=== PATIENT | male | born 1970 | race Caucasian/White ===

== ENCOUNTER 2018-03-22 07:30 | Day surgery (SDC) | payer OTHER ==
[2018-03-16 14:21] LABS: BASOPHILS # (AUTO) 0.1 X10'3 (0-0.2); BASOPHILS % (AUTO) 1.1 % (0-1); EOSINOPHILS # (AUTO) 0.1 X10'3 (0-0.9); LYMPHOCYTES # (AUTO) 1.7 X10'3 (1.1-4.8); LYMPHOCYTES % (AUTO) 21.4 % (21-51); MEAN CORPUSCULAR HEMOGLOBIN 27.7 PG (27.0-31.0); MEAN CORPUSCULAR HGB CONC 32.2 % (33.0-36.5); MEAN PLATELET VOLUME 8.2 FL (7.4-10.4); MONOCYTES # (AUTO) 0.6 X10'3 (0-0.9); MONOCYTES % (AUTO) 7.9 % (2-12); NEUTROPHILS # (AUTO) 5.3 X10'3 (1.8-7.7); NEUTROPHILS % (AUTO) 68.6 % (42-75); PRE OP HEMATOCRIT 43.8 % (42.0-52.0); PRE OP HEMOGLOBIN 14.1 g/dL (14.0-17.9); PRE OP PLATELET COUNT 152 X10'3 (140-440); RED BLOOD COUNT 5.09 X10'6 (4.70-6.10)
[2018-03-16 14:33] LABS: CLARITY,URINE CLEAR (Clear); COLOR,URINE YELLOW (Yellow); GLUCOSE, URINE NEGATIVE (Neg); KETONES,URINE NEGATIVE (Neg); LEUKOCYTE ESTERASE ,URINE NEGATIVE (Neg); NITRITES, URINE NEGATIVE (Neg); OCCULT BLOOD,URINE NEGATIVE (Neg); PH,URINE 5.5 (4.8-8.0); PROTEIN,URINE NEGATIVE (Neg); UROBILINOGEN,URINE 0.2 E.U/dL (0.2-1.0)
[2018-03-16 14:35] LABS: PRE OP PROTIME 10.4 SECONDS (9.0-12.0)
[2018-03-16 14:37] LABS: ALBUMIN 3.6 G/DL (3.4-5.0); ALBUMIN/GLOBULIN RATIO 0.9 (1.1-1.5); ALKALINE PHOSPHATASE 118 IU/L (46-116); BLOOD UREA NITROGEN 14 MG/DL (7-18); BUN/CREATININE RATIO 13.2 (5.4-32.0); CALCIUM 9.4 MG/DL (8.5-10.1); CHLORIDE 102 MMOL/L (99-107); CREATININE 1.06 MG/DL (0.60-1.10); PRE OP ANION GAP 9 (8-16); PRE OP AST 62 U/L (10-37); PRE OP BILIRUB, TOTAL 0.8 MG/DL (0.0-1.0); PRE OP GLUCOSE 108 MG/DL (70-104); PRE OP POTASSIUM 3.9 MMOL/L (3.4-5.1); PRE OP SODIUM 140 MMOL/L (135-145); TOTAL CARBON DIOXIDE 29.5 MMOL/L (24-32); TOTAL PROTEIN 7.5 G/DL (6.4-8.2); eGFR 75 ML/MIN
[2018-03-16 14:41] LABS: PRE OP ALT 93 U/L (30-65)
[2018-03-16 14:43] LABS: UA COLLECTION TYPE CLN CATCH MIDSTREAM
[~2018-03-22] VITALS: Ht 177.8 cm; Wt 139.7 kg
[2018-03-22] VITALS (10 sets, daily range): BP systolic 114–148; BP diastolic 62–81
[~2018-03-22 07:30] MED LIST: NO HOME MEDS; ceFAZolin inj. 3,000 MG in normal saline 100ml IV soln 100 ML IV ONE; famotidine 20mg tablet PO ONE; ringers solution, lacted 1,000 ML IV SCH
[2018-03-22] MEDS ORDERED: ondansetron/PF 4mg/2ml inj IV PRN ×2 (08:30→10:30)
[2018-03-22] MEDS ORDERED: fentaNYL/PF 50MCG/1 ML 2ML syringe IV PRN ×4 (08:30→10:30)
[2018-03-22] MEDS ORDERED: hydrALAZINE 20mg/ml inj. IV PRN ×2 (08:30→10:30)
[2018-03-22] MEDS ORDERED: morphine 4 MG/ML inj SYRINge IV PRN ×4 (08:30→10:30)
[2018-03-22] MEDS ORDERED: labetalol 20mg/4ml (5mg/ml) syringe IV PRN ×2 (08:30→10:30)
[2018-03-22] MEDS ORDERED: ringers solution, lacted 1,000 ML IV SCH ×2 (08:30→10:28)
[2018-03-22] MEDS ORDERED: ROPIVAcaine 0.5% (5mg/ml) 30ml vial ONE (09:34)
[2018-03-22] MEDS ORDERED: methylene blue (5mg/ml) 50mg/10ml ampul IV ONE (09:51)
[2018-03-22] MEDS ORDERED: fentaNYL/PF 50MCG/1 ML 2ML syringe ONE (09:52)
[2018-03-22] MEDS ORDERED: MIDAZolam 5mg/5ml vial ONE (09:52)
== END 2018-03-22 12:30 | disposition home or self-care (01) ==
LOC: PAS 07:30
PROVIDERS: ATTEND Surgery
DX: K60.3 Anal fistula (principal); K64.4 Residual hemorrhoidal skin tags; Z79.899 Other long term (current) drug therapy; Z98.890 Other specified postprocedural states
CPT/HCPCS: 36415; 45330; 46258; 80053; 81003; 85025; 85610; 85730; 93005; A6266; A6449; J0690; J2250; J3010; A7000; J2795; J7030; J7120

== ENCOUNTER 2018-03-28 10:20 | Day surgery (SDC) | payer OTHER ==
[~2018-03-28 10:20] MED LIST changes: -ceFAZolin inj. 3,000 MG in normal saline 100ml IV soln 100 ML IV ONE; -famotidine 20mg tablet PO ONE; -ringers solution, lacted 1,000 ML IV SCH
[2018-03-28] MEDS ORDERED: HYDR-4383 PO (12:17)
[2018-03-28] MEDS ORDERED: IBUP-1984 PO (16:57)
== END 2018-03-28 12:46 | disposition home or self-care (01) ==
LOC: WOUND CARE 10:20
PROVIDERS: ATTEND Surgery
DX: T81.89XA Other complications of procedures, not elsewhere classified, initial encounter (principal); L98.492 Non-pressure chronic ulcer of skin of other sites with fat layer exposed; Z79.899 Other long term (current) drug therapy; Z98.890 Other specified postprocedural states; Y83.8 Other surgical procedures as the cause of abnormal reaction of the patient, or of later complication, without mention of misadventure at the time of the procedure
CPT/HCPCS: 17250; 97597; A6021; A6243

== ENCOUNTER 2018-04-04 09:36 | Day surgery (SDC) | payer OTHER ==
[~2018-04-04 09:36] MED LIST changes: +HYDR-4383 PO; +IBUP-1984 PO
== END 2018-04-04 12:19 | disposition home or self-care (01) ==
LOC: WOUND CARE 09:36
PROVIDERS: ATTEND Surgery
DX: T81.89XD Other complications of procedures, not elsewhere classified, subsequent encounter (principal); L98.492 Non-pressure chronic ulcer of skin of other sites with fat layer exposed; Z79.899 Other long term (current) drug therapy; Z98.890 Other specified postprocedural states; Y83.8 Other surgical procedures as the cause of abnormal reaction of the patient, or of later complication, without mention of misadventure at the time of the procedure
CPT/HCPCS: 17250; 97597; A6021

== ENCOUNTER 2018-04-08 09:36 | Day surgery (SDC) | payer OTHER | END 2018-04-08 10:47 | disposition home or self-care (01) | LOC: WOUND CARE 09:36 | PROVIDERS: ATTEND Surgery | DX: T81.89XD Other complications of procedures, not elsewhere classified, subsequent encounter (principal); L98.492 Non-pressure chronic ulcer of skin of other sites with fat layer exposed; Z79.899 Other long term (current) drug therapy; Z98.890 Other specified postprocedural states; Y83.8 Other surgical procedures as the cause of abnormal reaction of the patient, or of later complication, without mention of misadventure at the time of the procedure | CPT/HCPCS: 17250; A6021 ==

== ENCOUNTER 2018-04-18 09:31 | Day surgery (SDC) | payer OTHER | END 2018-04-18 11:30 | disposition home or self-care (01) | LOC: WOUND CARE 09:31 | PROVIDERS: ATTEND Surgery | DX: T81.89XD Other complications of procedures, not elsewhere classified, subsequent encounter (principal); L98.492 Non-pressure chronic ulcer of skin of other sites with fat layer exposed; Z79.899 Other long term (current) drug therapy; Z98.890 Other specified postprocedural states; Y83.8 Other surgical procedures as the cause of abnormal reaction of the patient, or of later complication, without mention of misadventure at the time of the procedure | CPT/HCPCS: 17250 ==

== ENCOUNTER 2018-04-22 09:33 | Day surgery (SDC) | payer OTHER ==
[~2018-04-22 09:33] MED LIST changes: -NO HOME MEDS
== END 2018-04-22 10:10 | disposition home or self-care (01) ==
LOC: WOUND CARE 09:33
PROVIDERS: ATTEND Surgery
DX: T81.89XD Other complications of procedures, not elsewhere classified, subsequent encounter (principal); L98.492 Non-pressure chronic ulcer of skin of other sites with fat layer exposed; Z79.899 Other long term (current) drug therapy; Z98.890 Other specified postprocedural states; Y83.8 Other surgical procedures as the cause of abnormal reaction of the patient, or of later complication, without mention of misadventure at the time of the procedure
CPT/HCPCS: 17250; 97597

== ENCOUNTER 2018-05-13 09:35 | Outpatient (CLI) | payer OTHER ==
--- NOTE | 2018-05-13 11:30 | NUR ---
Patient ambulated independently from [facility] and was admitted to outpatient wound care for physician visit with Noe Sandoval MD. Dressing removed, wound cleansed. Patient assessed for changes in conditions, medications and medical history. 1120 - Dr. Sandoval at bedside accompanied by RN. Wound assessed by and is declared healed. Plan of care discussed with patient. No dressings ordered or placed. Patient is discharged from the wound clinic to follow up on an as needed basis. Patient instructed on the signs and symptoms of infection and to call the Wound Center if any occur or to go to the ED if we are closed: Increased pain in wound Increase in drainage from the wound Redness in the skin surrounding the wound Bleeding from the wound Temperature of 101 or greater Patient instructed that the weight of their body puts a large amount of pressure on their wounds. This pressure keeps the new tissue from growing and inhibits new blood vessels from forming. Explained that, if they continue to bear weight on a body part that has a wound, the time it takes to heal the wound increases, the wound may get worse or the wound may not heal at all. Patient verbalized understanding of all discharge instructions and plan of care and ambulated independently out to [facility] in stable condition with no sign or symptom of distress at time of discharge.
[2018-05-13] MEDS ORDERED: CIPR-230 PO (14:01)
== END 2018-05-13 11:29 | disposition home or self-care (01) ==
LOC: WOUND CARE 09:35
PROVIDERS: ATTEND Surgery
DX: T81.89XD Other complications of procedures, not elsewhere classified, subsequent encounter (principal); L98.498 Non-pressure chronic ulcer of skin of other sites with other specified severity; Z79.899 Other long term (current) drug therapy; Z98.890 Other specified postprocedural states; F10.10 Alcohol abuse, uncomplicated; Y83.8 Other surgical procedures as the cause of abnormal reaction of the patient, or of later complication, without mention of misadventure at the time of the procedure
CPT/HCPCS: G0463

== ENCOUNTER → 2020-08-16 | Day surgery (SDC) | payer OTHER ==
[2020-08-05 15:50] LABS: CLARITY,URINE CLEAR (Clear); COLOR,URINE YELLOW (Yellow); GLUCOSE, URINE NEGATIVE (Neg); KETONES,URINE NEGATIVE (Neg); LEUKOCYTE ESTERASE ,URINE TRACE (Neg); NITRITES, URINE NEGATIVE (Neg); OCCULT BLOOD,URINE NEGATIVE (Neg); PH,URINE 5.5 (4.8-8.0); PROTEIN,URINE NEGATIVE (Neg); UA COLLECTION TYPE CLN CATCH MIDSTREAM
[2020-08-05 15:53] LABS: BASOPHILS % (AUTO) 0.7 % (0-1); EOSINOPHILS # (AUTO) 0.1 X10'3 (0-0.9); EOSINOPHILS % (AUTO) 1.6 % (0-6); LYMPHOCYTES % (AUTO) 14.7 % (21-51); MEAN CORPUSCULAR HEMOGLOBIN 29.6 PG (27.0-31.0); MEAN CORPUSCULAR HGB CONC 32.2 g/dL (33.0-36.5); MEAN CORPUSCULAR VOLUME 91.8 FL (78-98); MEAN PLATELET VOLUME 8.4 FL (7.4-10.4); MONOCYTES # (AUTO) 0.7 X10'3 (0-0.9); MONOCYTES % (AUTO) 10.2 % (2-12); NEUTROPHILS # (AUTO) 4.9 X10'3 (1.8-7.7); NEUTROPHILS % (AUTO) 72.8 % (42-75); PRE OP HEMOGLOBIN 12.9 g/dL (14.0-17.9); RED BLOOD COUNT 4.36 X10'6 (4.70-6.10); RED CELL DISTRIBUTION WIDTH 15.5 % (11.5-14.5)
[2020-08-05 15:59] LABS: BACTERIA,URINE 1+ /HPF (Neg); RBC,URINE 0-2 /HPF (0-2); SQUAMOUS EPITHELIAL CELL,UR FEW /LPF (FEW); WBC,URINE 0-4 /HPF (0-4)
[2020-08-05 16:12] LABS: ALBUMIN 3.6 G/DL (3.4-5.0); ALBUMIN/GLOBULIN RATIO 0.9 (1.1-1.5); ALKALINE PHOSPHATASE 109 IU/L (46-116); BLOOD UREA NITROGEN 12 MG/DL (7-18); BUN/CREATININE RATIO 15.8 (5.4-32.0); CALCIUM 9.4 MG/DL (8.5-10.1); CHLORIDE 102 MMOL/L (99-107); CREATININE 0.76 MG/DL (0.60-1.10); PRE OP ANION GAP 9 (8-16); PRE OP AST 102 U/L (10-37); PRE OP GLUCOSE 128 MG/DL (70-104); PRE OP SODIUM 140 MMOL/L (135-145); TOTAL CARBON DIOXIDE 29.3 MMOL/L (24-32); TOTAL PROTEIN 7.4 G/DL (6.4-8.2); eGFR > 90 ML/MIN
[2020-08-05 16:16] LABS: PRE OP POTASSIUM 3.9 MMOL/L (3.4-5.1)
[2020-08-05 16:18] LABS: PRE OP ALT 111 U/L (30-65)
[2020-08-05 17:07] LABS: PRE OP PLATELET COUNT 97 X10'3 (140-440)
[~2020-08-16] VITALS: Ht 180.3 cm; Wt 149.7 kg
[~2020-08-16] MED LIST changes: +ASPI-1265 PO; +LIDOcaine 2% (20mg/ml) 5ml vial ONE; +ROPIVAcaine 0.5% (5mg/ml) 30ml vial ONE; +bacitracin 15gm ointment TP ONE; +ceFAZolin 1GM/D5W- ADD-VANTAGE 50 ML IV ONE; +cefazolin/dext.iso 2gm/100ml 100 ML IV ONE; +dexamethasone sod phosphate 4mg/ml inj. ONE; +famotidine 20mg tablet PO ONE; +fentaNYL /PF 50mcg/ml 5ml ampule ONE; +midazolam 1 mg/ML 2ml injection ONE; +propofol inj 20 ML IV ONE; +ringers solution, lacted 1,000 ML IV SCH; +rocuronium 10mg/ml inj IV ONE
[2020-08-16 12:52] VITALS: BP 135/62
== END | disposition home or self-care (01) ==
LOC: PAS 11:42
PROVIDERS: ATTEND Podiatrist Foot & Ankle Surgery
DX: S86.012A Strain of left Achilles tendon, initial encounter (principal); Z53.8 Procedure and treatment not carried out for other reasons; S86.312A Strain of muscle(s) and tendon(s) of peroneal muscle group at lower leg level, left leg, initial encounter; M77.32 Calcaneal spur, left foot; M25.472 Effusion, left ankle; M21.6X2 Other acquired deformities of left foot; M76.72 Peroneal tendinitis, left leg; M76.62 Achilles tendinitis, left leg; Z20.822 Contact with and (suspected) exposure to COVID-19; Z79.899 Other long term (current) drug therapy; Z72.89 Other problems related to lifestyle; X58.XXXA Exposure to other specified factors, initial encounter; Y93.89 Activity, other specified; Y92.89 Other specified places as the place of occurrence of the external cause; Y99.8 Other external cause status
CPT/HCPCS: 36415; 80053; 81001; 82948; 85025; 87088; 93005; J0690; J1100; J2001; J2250; J2704; J3010; U0003; J2795; J7120

== ENCOUNTER 2020-09-06 11:12 | Inpatient (IN) | payer OTHER ==
[2020-08-30 11:25] LABS: BASOPHILS # (AUTO) 0.1 X10'3 (0-0.2); BASOPHILS % (AUTO) 0.9 % (0-1); EOSINOPHILS # (AUTO) 0.2 X10'3 (0-0.9); EOSINOPHILS % (AUTO) 2.3 % (0-6); HEMATOCRIT 41.7 % (42.0-52.0); HEMOGLOBIN 13.8 g/dl (14.0-17.9); LYMPHOCYTES # (AUTO) 1.1 X10'3 (1.1-4.8); LYMPHOCYTES % (AUTO) 14.4 % (21-51); MEAN CORPUSCULAR HEMOGLOBIN 30.8 PG (27.0-31.0); MEAN CORPUSCULAR VOLUME 93.4 FL (78-98); MEAN PLATELET VOLUME 8.3 FL (7.4-10.4); MONOCYTES # (AUTO) 0.7 X10'3 (0-0.9); MONOCYTES % (AUTO) 8.7 % (2-12); NEUTROPHILS # (AUTO) 5.8 X10'3 (1.8-7.7); NEUTROPHILS % (AUTO) 73.7 % (42-75); PLATELET COUNT 164 X10'3 (140-440); RED BLOOD COUNT 4.46 X10'6 (4.70-6.10); RED CELL DISTRIBUTION WIDTH 15.1 % (11.5-14.5); WHITE BLOOD COUNT 7.9 X10'3 (4.5-11.0)
[2020-08-30 11:37] LABS: ALANINE AMINOTRANSFERASE 166 U/L (12-78); ALBUMIN 3.4 G/DL (3.4-5.0); ALBUMIN/GLOBULIN RATIO 0.9 (1.1-1.5); ALKALINE PHOSPHATASE 126 IU/L (46-116); ANION GAP 12 (8-16); ASPARTATE AMINO TRANSFERASE 175 U/L (10-37); BLOOD UREA NITROGEN 10 MG/DL (7-18); BUN/CREATININE RATIO 15.4 (5.4-32.0); CHLORIDE 102 MMOL/L (99-107); CREATININE 0.65 MG/DL (0.60-1.10); GLUCOSE 132 MG/DL (70-104); POTASSIUM 4.4 MMOL/L (3.5-5.1); SODIUM 139 MMOL/L (135-145); TOTAL CARBON DIOXIDE 25.5 MMOL/L (24-32); TOTAL PROTEIN 7.4 G/DL (6.4-8.2); eGFR > 90 ML/MIN
[2020-09-06] VITALS (24 sets, daily range): BP systolic 118–181; BP diastolic 52–97
[~2020-09-06] VITALS: Ht 180.3 cm; Wt 157.6 kg
[~2020-09-06 11:12] MED LIST changes: -ASPI-1265 PO; -LIDOcaine 2% (20mg/ml) 5ml vial ONE; -ROPIVAcaine 0.5% (5mg/ml) 30ml vial ONE; -bacitracin 15gm ointment TP ONE; -cefazolin/dext.iso 2gm/100ml 100 ML IV ONE; +cefazolin/dext.iso 2gm/100ml IV ONE; -dexamethasone sod phosphate 4mg/ml inj. ONE; -fentaNYL /PF 50mcg/ml 5ml ampule ONE; -midazolam 1 mg/ML 2ml injection ONE; -propofol inj 20 ML IV ONE; -rocuronium 10mg/ml inj IV ONE
[2020-09-06] MEDS ORDERED: ASPI-1265 PO (12:01)
[2020-09-06] MEDS ORDERED: bacitracin 15gm ointment TP ONE (12:28)
[2020-09-06] MEDS ORDERED: cloNIDine hcl/PF 100mcg/ml inj ONE (13:28)
[2020-09-06] MEDS ORDERED: midazolam 1 mg/ML 2ml injection ONE (13:33)
[2020-09-06 13:34] LABS: CLARITY,URINE CLEAR (Clear); COLOR,URINE YELLOW (Yellow); GLUCOSE, URINE NEGATIVE (Neg); KETONES,URINE NEGATIVE (Neg); LEUKOCYTE ESTERASE ,URINE NEGATIVE (Neg); NITRITES, URINE NEGATIVE (Neg); OCCULT BLOOD,URINE NEGATIVE (Neg); PROTEIN,URINE NEGATIVE (Neg); UROBILINOGEN,URINE 0.2 E.U/dL (0.2-1.0)
[2020-09-06 13:35] LABS: UA COLLECTION TYPE CLN CATCH MIDSTREAM
[2020-09-06] MEDS ORDERED: fentaNYL /PF 50mcg/ml 5ml ampule ONE (15:01)
[2020-09-06] MEDS ORDERED: rocuronium 10mg/ml inj IV ONE (15:01)
[2020-09-06] MEDS ORDERED: propofol inj 20 ML IV ONE ×2 (15:01)
[2020-09-06] MEDS ORDERED: LIDOcaine 2% (20mg/ml) 5ml vial ONE (15:01)
[2020-09-06] MEDS ORDERED: ROPIVAcaine 0.5% (5mg/ml) 30ml vial ONE ×2 (15:01)
[2020-09-06] MEDS ORDERED: dexamethasone sod phosphate 4mg/ml inj. ONE (15:01)
[2020-09-06] MEDS ORDERED: ondansetron/PF 4mg/2ml inj ONE (15:01)
[2020-09-06] MEDS ORDERED: acetaminophen 1,000mg/100ml IV 100 ML IV PRN (15:05)
[2020-09-06] MEDS ORDERED: proCHLORperazine 10 MG/2 ml inj IV PRN (15:05)
[2020-09-06] MEDS ORDERED: labetalol 20mg/4ml (5mg/ml) syringe IV PRN (15:05)
[2020-09-06] MEDS ORDERED: morphine 4 MG/ML inj SYRINge IV PRN (15:05)
[2020-09-06] MEDS ORDERED: meperidine/PF 25mg/ml syringe IV PRN ×3 (15:05)
[2020-09-06] MEDS ORDERED: morphine 2 MG/ML inj. syringe IV PRN (15:05)
[2020-09-06] MEDS ORDERED: ondansetron/PF 4mg/2ml inj IV PRN ×2 (15:05→17:40)
[2020-09-06] MEDS ORDERED: hydrALAZINE 20mg/ml inj. IV PRN (15:05)
[2020-09-06] MEDS ORDERED: ringers solution, lacted 1,000 ML IV SCH (15:05)
[2020-09-06] MEDS ORDERED: HYDROmorphone 1 mg/ml syringe ONE (15:42)
[2020-09-06] MEDS ORDERED: neostigmine methylsulfate 1 MG/ML 10ml vial ONE (16:02)
[2020-09-06] MEDS ORDERED: glycopyrrolate 0.2mg/ml inj ONE (16:02)
--- NOTE | 2020-09-06 16:19 | NUR ---
Received from OR via MARLI , accompanied by Anesthesiologist MATHEW and report given by Anesthesiolgist. PATIENT WITH 20G PIV IN RIGHT UE RUNNING LR AT 100. SPLINT TO LEFT LE THAT IS CDI. PATIENT DENIES PAIN. FOOT OF BED GATCHED, TOES PWD. Addendum: 09/06/20 at 1630 by Jose Villalobos RN, RN Amended: Links added.
--- NOTE | 2020-09-06 17:07 | NUR ---
MD CARMONA CALLED RE CRACKLES IN UPPER LOBES AND 2+ EDEMA TO RIGHT LE. (NON OPERATIVE LEG). 86% SATURATIONS ON 3L NC. RT PAGED AND PHARMACY TO DELIVER MEDS. Addendum: 09/06/20 at 1709 by Jose Villalobos RN, RN Amended: Links added.
[2020-09-06] MEDS ORDERED: furosemide 40mg/4ml inj IV ONE (17:08)
[2020-09-06] MEDS ORDERED: ipratropium/albuterol 3ml nebule NEB PRN (17:10)
[2020-09-06] MEDS ORDERED: bisacodyl 10mg suppository rectal RC PRN (17:40)
[2020-09-06] MEDS ORDERED: diphenhydrAMINE 25mg capsule PO PRN ×2 (17:40)
[2020-09-06] MEDS ORDERED: acetaminophen 325mg tablet PO PRN (17:40)
[2020-09-06] MEDS ORDERED: HYDROcodone/acetaminophen 10/325mg tab PO PRN (17:40)
[2020-09-06] MEDS ORDERED: magnesium hydroxide 30ml (MOM) UD suspension PO PRN (17:40)
--- NOTE | 2020-09-06 18:29 | NUR ---
PATIENT HAS MET ALL CRITERIA FOR TRANSFER TO THE SURGICAL/SEMAJ/PCU/ORTHO/ICU FLOOR. VSS. DRESSINGS INTACT. BED LOW, CALL LIGHT PRESENT AND 2 RAILS UP. RN PRESENT TO ACCEPT CARE OF PATIENT AND REPORT HAS BEEN CALLED. ALL QUESTIONS ANSWERED TO ACCEPTING RN. VSS. SCOTT MANCUSO PRESENT TO ACCEPT CARE OF PATIENT. PATIENT TRANSFERED SELF OVER TO BED WITH USE OF BED TRAPEZE AND REPOSITIONED SELF TO COMFORT. CAST ELEVATOR PLACED BY SCOTT MANCUSO. CALL LIGHT IN REACH AND BED LOW WITH 2 RAILS UP. INSTRUCTED TO CALL RN TO ASSIST IF HE WISHES TO GET UP OR DANGLE AT BEDSIDE. Addendum: 09/06/20 at 1903 by Jose Foster - SCOTT RN Amended: Links added.
[2020-09-06] MEDS ORDERED: sennosides 8.6mg tablet PO SCH (21:00)
[2020-09-06] MEDS: ibuprofen tablet 400 MG TABLET PO SCH (21:07)
[2020-09-07] VITALS: BP 143/76
[2020-09-07] MEDS: HYDROcodone/acetaminophen 10/325mg tab PO PRN ×2 (00:04→05:40)
[2020-09-07 00:06] VITALS: BP 143/76
[2020-09-07] MEDS: ceFAZolin/D5W- 1GM premix 50 ML IV SCH ×2 (00:20→08:27)
[2020-09-07 04:00] VITALS: BP 133/74
[2020-09-07 06:00] VITALS: BP 133/74
[2020-09-07 06:05] LABS: BASOPHILS % (AUTO) 0.4 % (0-1); EOSINOPHILS % (AUTO) 0 % (0-6); HEMATOCRIT 39.9 % (42.0-52.0); HEMOGLOBIN 13.1 g/dl (14.0-17.9); LYMPHOCYTES # (AUTO) 0.6 X10'3 (1.1-4.8); MEAN CORPUSCULAR HEMOGLOBIN 30.6 PG (27.0-31.0); MEAN CORPUSCULAR HGB CONC 32.9 g/dL (33.0-36.5); MEAN CORPUSCULAR VOLUME 92.8 FL (78-98); MEAN PLATELET VOLUME 8.4 FL (7.4-10.4); MONOCYTES # (AUTO) 0.5 X10'3 (0-0.9); NEUTROPHILS # (AUTO) 7.3 X10'3 (1.8-7.7); NEUTROPHILS % (AUTO) 86.6 % (42-75); PLATELET COUNT 133 X10'3 (140-440); RED CELL DISTRIBUTION WIDTH 14.9 % (11.5-14.5); WHITE BLOOD COUNT 8.4 X10'3 (4.5-11.0)
[2020-09-07 06:41] LABS: ALANINE AMINOTRANSFERASE 117 U/L (12-78); ALBUMIN 3.1 G/DL (3.4-5.0); ALBUMIN/GLOBULIN RATIO 0.8 (1.1-1.5); ALKALINE PHOSPHATASE 115 IU/L (46-116); ANION GAP 9 (8-16); ASPARTATE AMINO TRANSFERASE 110 U/L (10-37); BLOOD UREA NITROGEN 11 MG/DL (7-18); BUN/CREATININE RATIO 13.9 (5.4-32.0); CHLORIDE 100 MMOL/L (99-107); CREATININE 0.79 MG/DL (0.60-1.10); GLUCOSE 180 MG/DL (70-104); POTASSIUM 4.2 MMOL/L (3.5-5.1); SODIUM 138 MMOL/L (135-145); TOTAL CARBON DIOXIDE 28.8 MMOL/L (24-32); eGFR > 90 ML/MIN
--- NOTE | 2020-09-07 06:45 | NUR ---
Patient in room ORTHO 4010. I have received report from SCOTT Brown and had the opportunity to ask questions and assume patient care.
[2020-09-07 08:00] VITALS: BP 133/74
[2020-09-07] MEDS: ibuprofen tablet 400 MG TABLET PO SCH (08:27)
[2020-09-07 10:00] VITALS: BP 123/74
== END 2020-09-07 11:25 | disposition home or self-care (01) | DRG 501 ==
LOC: PAS 11:12 → ORTHO 4S 17:38 → OBSVTOIN 18:00
PROVIDERS: ADMIT Podiatrist Foot & Ankle Surgery; ATTEND Podiatrist Foot & Ankle Surgery
PROC: 3E0T3BZ Introduction of Anesthetic Agent into Peripheral Nerves and Plexi, Percutaneous Approach (ICD-10-PCS; 2020-09-06)
PROC: 3E0T33Z Introduction of Anti-inflammatory into Peripheral Nerves and Plexi, Percutaneous Approach (ICD-10-PCS; 2020-09-06)
PROC: 0LMT0ZZ Reattachment of Left Ankle Tendon, Open Approach (ICD-10-PCS; principal; 2020-09-06 13:20)
DX: M76.62 Achilles tendinitis, left leg (principal); Z68.42 Body mass index [BMI] 45.0-49.9, adult; S96.912A Strain of unspecified muscle and tendon at ankle and foot level, left foot, initial encounter; M25.472 Effusion, left ankle; M21.6X2 Other acquired deformities of left foot; M77.32 Calcaneal spur, left foot; E66.01 Morbid (severe) obesity due to excess calories; M76.72 Peroneal tendinitis, left leg; M92.62 Juvenile osteochondrosis of tarsus, left ankle; M21.962 Unspecified acquired deformity of left lower leg
CPT/HCPCS: 27654; 28119; 28200; Z7506; Z7508; 36415; 80053; 81003; 82948; 85025; 94640; 94760; 96365; 96366; 96375; 97161; 97530; A4215; A4618; A6222; A6253; A6449; A7000; C1713; G0378; J0690; J0735; J1100; J1170; J1940; J2001; J2250; J2405; J2704; J2710; J2795; J3010; J3490; J7120; U0003; U0005

== ENCOUNTER 2021-10-17 17:42 | Emergency (ER) | payer OTHER ==
[~2021-10-17] VITALS: Ht 180.3 cm; Wt 154.6 kg
[~2021-10-17 17:42] MED LIST changes: +ASPI-1265 PO; -ceFAZolin 1GM/D5W- ADD-VANTAGE 50 ML IV ONE; -cefazolin/dext.iso 2gm/100ml IV ONE; -famotidine 20mg tablet PO ONE; -ringers solution, lacted 1,000 ML IV SCH
[2021-10-17 18:09] VITALS: BP 136/73
[2021-10-17] MEDS ORDERED: ketorolac trometh. 30mg/ml inj. IM ONE (18:35)
[2021-10-17] MEDS ORDERED: iohexol 350MG/ML 100ml bottle IV ONE (18:46)
[2021-10-17 19:12] LABS: CLARITY,URINE CLEAR (Clear); COLOR,URINE YELLOW (Yellow); GLUCOSE, URINE NEGATIVE (Neg); KETONES,URINE NEGATIVE (Neg); LEUKOCYTE ESTERASE ,URINE NEGATIVE (Neg); NITRITES, URINE NEGATIVE (Neg); OCCULT BLOOD,URINE TRACE-INTACT (Neg); PROTEIN,URINE NEGATIVE (Neg); UROBILINOGEN,URINE 0.2 E.U/dL (0.2-1.0)
[2021-10-17 19:21] LABS: UA COLLECTION TYPE NON-SPECIFIED
[2021-10-17 19:22] LABS: BACTERIA,URINE NONE SEEN /HPF (Neg); RBC,URINE 0-2 /HPF (0-2); SQUAMOUS EPITHELIAL CELL,UR FEW /LPF (FEW); WBC,URINE NONE SEEN /HPF (0-4)
[2021-10-17 19:23] LABS: BASOPHILS # (AUTO) 0.1 X10'3 (0-0.2); BASOPHILS % (AUTO) 0.9 % (0-1); EOSINOPHILS # (AUTO) 0.1 X10'3 (0-0.9); EOSINOPHILS % (AUTO) 2.1 % (0-6); HEMOGLOBIN 14.2 g/dl (14.0-17.9); LYMPHOCYTES # (AUTO) 1.6 X10'3 (1.1-4.8); LYMPHOCYTES % (AUTO) 27.8 % (21-51); MEAN CORPUSCULAR HEMOGLOBIN 29.4 PG (27.0-31.0); MEAN CORPUSCULAR HGB CONC 32.2 g/dL (33.0-36.5); MEAN CORPUSCULAR VOLUME 91.5 FL (78-98); MEAN PLATELET VOLUME 8.9 FL (7.4-10.4); MONOCYTES # (AUTO) 0.6 X10'3 (0-0.9); MONOCYTES % (AUTO) 10.6 % (2-12); NEUTROPHILS # (AUTO) 3.4 X10'3 (1.8-7.7); NEUTROPHILS % (AUTO) 58.6 % (42-75); PLATELET COUNT 105 X10'3 (140-440); RED BLOOD COUNT 4.81 X10'6 (4.70-6.10); WHITE BLOOD COUNT 5.8 X10'3 (4.5-11.0)
[2021-10-17 19:35] LABS: ALANINE AMINOTRANSFERASE 93 U/L (12-78); ALBUMIN 3.5 G/DL (3.4-5.0); ALBUMIN/GLOBULIN RATIO 0.9 (1.1-1.5); ALKALINE PHOSPHATASE 119 IU/L (46-116); ANION GAP 13 (8-16); ASPARTATE AMINO TRANSFERASE 84 U/L (10-37); BLOOD UREA NITROGEN 10 MG/DL (7-18); BUN/CREATININE RATIO 13.2 (5.4-32.0); CALCIUM 8.7 MG/DL (8.5-10.1); CHLORIDE 104 MMOL/L (99-107); CREATININE 0.76 MG/DL (0.60-1.10); GLUCOSE 113 MG/DL (70-104); POTASSIUM 3.8 MMOL/L (3.5-5.1); SODIUM 143 MMOL/L (135-145); TOTAL PROTEIN 7.4 G/DL (6.4-8.2); eGFR > 90 ML/MIN
[2021-10-17] MEDS ORDERED: CYCL-394 PO (21:19)
[2021-10-17] MEDS ORDERED: IBUP-1985 PO (21:19)
[2021-10-17] MEDS ORDERED: LIDO700A32 TOP (21:19)
[2021-10-17] MEDS ORDERED: TRAM50TA2 PO (21:20)
== END 2021-10-17 21:36 | disposition home or self-care (01) ==
LOC: ER 17:43
DX: M51.34 Other intervertebral disc degeneration, thoracic region (principal); M54.50 Low back pain, unspecified; G89.29 Other chronic pain; Z72.89 Other problems related to lifestyle; Z79.82 Long term (current) use of aspirin; Z79.899 Other long term (current) drug therapy
CPT/HCPCS: 36415; 71275; 72128; 74174; 80053; 81001; 85025; 96372; 99285; J1885; J3490; Q9967

== ENCOUNTER 2022-05-20 13:45 | Emergency (ER) | payer OTHER ==
[~2022-05-20] VITALS: Ht 180.3 cm; Wt 156.8 kg
[~2022-05-20 13:45] MED LIST changes: +IBUP-1985 PO; +LIDO700A32 TOP
[2022-05-20 14:43] VITALS: BP 145/89
== END 2022-05-20 15:02 | disposition home or self-care (01) ==
LOC: ER 13:45
DX: S96.911A Strain of unspecified muscle and tendon at ankle and foot level, right foot, initial encounter (principal); G89.29 Other chronic pain; M54.50 Low back pain, unspecified; W08.XXXA Fall from other furniture, initial encounter; Y93.89 Activity, other specified; Y92.89 Other specified places as the place of occurrence of the external cause; Y99.8 Other external cause status
CPT/HCPCS: 99284; L4360

== ENCOUNTER 2022-08-17 09:57 | Emergency (ER) | payer OTHER ==
[~2022-08-17] VITALS: Ht 180.3 cm; Wt 159.1 kg
[2022-08-17 10:44] LABS: BASOPHILS # (AUTO) 0.1 X10'3 (0-0.2); BASOPHILS % (AUTO) 0.8 % (0-1); EOSINOPHILS % (AUTO) 0.3 % (0-6); HEMATOCRIT 37.2 % (42.0-52.0); LYMPHOCYTES # (AUTO) 0.8 X10'3 (1.1-4.8); LYMPHOCYTES % (AUTO) 11.1 % (21-51); MEAN CORPUSCULAR HEMOGLOBIN 29.7 PG (27.0-31.0); MEAN CORPUSCULAR HGB CONC 32.3 g/dL (33.0-36.5); MEAN CORPUSCULAR VOLUME 91.8 FL (78-98); MEAN PLATELET VOLUME 9.5 FL (7.4-10.4); MONOCYTES # (AUTO) 0.7 X10'3 (0-0.9); MONOCYTES % (AUTO) 10.3 % (2-12); NEUTROPHILS # (AUTO) 5.5 X10'3 (1.8-7.7); NEUTROPHILS % (AUTO) 77.5 % (42-75); PLATELET COUNT 104 X10'3 (140-440); RED BLOOD COUNT 4.05 X10'6 (4.70-6.10); RED CELL DISTRIBUTION WIDTH 16.6 % (11.5-14.5); WHITE BLOOD COUNT 7.1 X10'3 (4.5-11.0)
[2022-08-17 10:57] LABS: ALANINE AMINOTRANSFERASE 11 U/L (12-78); ALBUMIN 2.9 G/DL (3.4-5.0); ALBUMIN/GLOBULIN RATIO 0.7 (1.1-1.5); ALKALINE PHOSPHATASE 353 IU/L (46-116); ANION GAP 12 (8-16); ASPARTATE AMINO TRANSFERASE 23 U/L (10-37); BILIRUBIN,TOTAL 3.1 MG/DL (0.1-1.0); BLOOD UREA NITROGEN 11 MG/DL (7-18); BUN/CREATININE RATIO 20.8 (10.0-20.0); CALCIUM 8.7 MG/DL (8.5-10.1); CHLORIDE 98 MMOL/L (99-107); CREATININE 0.53 MG/DL (0.60-1.10); GLUCOSE 154 MG/DL (70-104); POTASSIUM 3.5 MMOL/L (3.5-5.1); SODIUM 134 MMOL/L (135-145); TOTAL PROTEIN 6.8 G/DL (6.4-8.2); eGFR > 90 ML/MIN
[2022-08-17] MEDS ORDERED: HYDROcodone/acetaminophen 10/325mg tab PO ONE (11:35)
[2022-08-17] MEDS ORDERED: furosemide 20 MG/2 ML vial IV ONE (11:35)
[2022-08-17] MEDS ORDERED: cephalexin 500mg capsule PO ONE (11:35)
[2022-08-17] MEDS ORDERED: FURO40TA4 PO (11:41)
[2022-08-17] MEDS ORDERED: CEPH-585 PO (11:41)
[2022-08-17] MEDS ORDERED: POTA-192 PO (11:41)
[2022-08-17 11:59] VITALS: BP 148/98
== END 2022-08-17 12:05 | disposition home or self-care (01) ==
LOC: ER 09:58
DX: L03.115 Cellulitis of right lower limb (principal); L03.116 Cellulitis of left lower limb; R60.0 Localized edema
CPT/HCPCS: 36415; 73610; 73630; 80053; 83880; 84145; 85025; 96374; 99284; J1940

== ENCOUNTER 2022-08-21 14:42 | Inpatient (IN) | payer OTHER ==
[~2022-08-21] VITALS: Ht 180.3 cm; Wt 158.8 kg
[~2022-08-21 14:42] MED LIST changes: +CEPH-585 PO; +FURO40TA4 PO; +POTA-192 PO
[2022-08-21] MEDS ORDERED: morphine 2 MG/ML inj. syringe IV PRN ×3 (16:15→16:25)
[2022-08-21] MEDS ORDERED: magnesium 4gm in 100ml NS 100 ML IV PRN ×2 (16:15→16:25)
[2022-08-21] MEDS ORDERED: potassium Cl 40MEQ/1/2NS 520ml 520 ML IV PRN ×2 (16:15→16:25)
[2022-08-21] MEDS ORDERED: magnesium Cl slow-release 64mg tablet PO PRN ×2 (16:15→16:25)
[2022-08-21] MEDS ORDERED: ondansetron/PF 4mg/2ml inj IV PRN ×2 (16:15→16:25)
[2022-08-21] MEDS ORDERED: potassium Cl 20 mEq SR tablet PO PRN ×4 (16:15→16:25)
[2022-08-21] MEDS ORDERED: acetaminophen 325mg tablet PO PRN ×3 (16:15→16:25)
[2022-08-21] MEDS ORDERED: magnesium 2GM in 50ml NS 50 ML IV PRN ×2 (16:15→16:25)
[2022-08-21] MEDS ORDERED: temazepam 15mg capsule PO PRN (16:15)
[2022-08-21] MEDS ORDERED: LORazepam 2 mg/ml vial IV PRN (16:30)
[2022-08-21 17:09] VITALS: BP 126/68
[2022-08-21] MEDS ORDERED: VANCOmycin 2,000MG in NS 500ml IV soln IV ONE (17:10)
[2022-08-21 17:18] LABS: BASOPHILS # (AUTO) 0.1 X10'3 (0-0.2); BASOPHILS % (AUTO) 1.1 % (0-1); EOSINOPHILS % (AUTO) 0.4 % (0-6); HEMATOCRIT 39.9 % (42.0-52.0); LYMPHOCYTES % (AUTO) 10.6 % (21-51); MEAN CORPUSCULAR HEMOGLOBIN 29.7 PG (27.0-31.0); MEAN CORPUSCULAR HGB CONC 32.6 g/dL (33.0-36.5); MEAN CORPUSCULAR VOLUME 91.2 FL (78-98); MEAN PLATELET VOLUME 9.3 FL (7.4-10.4); MONOCYTES # (AUTO) 0.6 X10'3 (0-0.9); MONOCYTES % (AUTO) 5.8 % (2-12); NEUTROPHILS # (AUTO) 7.8 X10'3 (1.8-7.7); NEUTROPHILS % (AUTO) 82.1 % (42-75); PLATELET COUNT 155 X10'3 (140-440); RED BLOOD COUNT 4.37 X10'6 (4.70-6.10); WHITE BLOOD COUNT 9.5 X10'3 (4.5-11.0)
--- NOTE | 2022-08-21 17:30 | NUR ---
Received report from Wound care. Patient arrived on floor at 1700, settled in bed, oriented to room and call light. attempted to start IV x2.
[2022-08-21 17:32] LABS: ALANINE AMINOTRANSFERASE 14 U/L (12-78); ALBUMIN 3.3 G/DL (3.4-5.0); ALBUMIN/GLOBULIN RATIO 0.8 (1.1-1.5); ALKALINE PHOSPHATASE 325 IU/L (46-116); ANION GAP 12 (8-16); ASPARTATE AMINO TRANSFERASE 25 U/L (10-37); BILIRUBIN,TOTAL 3.2 MG/DL (0.1-1.0); BLOOD UREA NITROGEN 9 MG/DL (7-18); C-REACTIVE PROTEIN 7.23 MG/DL (0.0-0.5); CALCIUM 9.4 MG/DL (8.5-10.1); CHLORIDE 98 MMOL/L (99-107); CREATININE 0.69 MG/DL (0.60-1.10); GLUCOSE 116 MG/DL (70-104); POTASSIUM 3.6 MMOL/L (3.5-5.1); SODIUM 139 MMOL/L (135-145); TOTAL CARBON DIOXIDE 28.6 MMOL/L (24-32); TOTAL PROTEIN 7.6 G/DL (6.4-8.2); eGFR > 90 ML/MIN
[2022-08-21 18:00] VITALS: BP 151/82
[2022-08-21] MEDS ORDERED: HYDR-3972 PO (18:04)
[2022-08-21] MEDS ORDERED: CEPH500C2 PO (18:04)
[2022-08-21] MEDS ORDERED: CELE-85 PO (18:04)
[2022-08-21] MEDS ORDERED: FURO40TA4 PO (18:04)
[2022-08-21] MEDS ORDERED: POTA-206 PO (18:04)
--- NOTE | 2022-08-21 18:35 | NUR ---
Problems reprioritized. Patient report given, questions answered & plan of care reviewed with Maria E CHAVEZ.
[2022-08-21] MEDS: morphine 2 MG/ML inj. syringe IV PRN (19:22)
[2022-08-21] MEDS: nicotine 14mg patch - 24hr TD SCH (19:23)
[2022-08-21 22:00] VITALS: BP 126/68
[2022-08-22] MEDS: morphine 2 MG/ML inj. syringe IV PRN ×4 (01:42→20:28)
[2022-08-22] MEDS: LORazepam 1 MG tablet PO PRN ×2 (01:57→23:12)
[2022-08-22] MEDS: acetaminophen 325mg tablet PO PRN ×2 (01:57→23:12)
[2022-08-22] MEDS: vancomycin/NS 1 GM ADD-VANTAGE 250 ML IV SCH ×3 (02:00→17:54)
[2022-08-22 06:00] VITALS: BP 117/63
[2022-08-22] MEDS: nicotine 14mg patch - 24hr TD SCH (07:25)
[2022-08-22 11:00] VITALS: BP 141/83
[2022-08-22] MEDS ORDERED: iohexol 300mg/ml 100ml inj. ONE (12:55)
[2022-08-22] MEDS ORDERED: VANCOMYCIN LEVEL IV ONE (17:30)
[2022-08-22 18:00] VITALS: BP 157/78
--- NOTE | 2022-08-22 18:31 | NUR ---
Patient eating at side of bed, all needs met at this time. Patient care provided with primary nurse, Amina CHAVEZ. Problems reprioritized. Patient report given, questions answered and plan of care reviewed with SCOTT Sanderson.
[2022-08-22 22:00] VITALS: BP 152/82
[2022-08-23] MEDS: vancomycin/NS 1 GM ADD-VANTAGE 250 ML IV SCH ×2 (02:36→10:21)
[2022-08-23] MEDS: morphine 2 MG/ML inj. syringe IV PRN ×3 (02:37→19:25)
--- NOTE | 2022-08-23 07:11 | NUR ---
Patient in room JOSSIE 340. I have received report from Maria E CHAVEZ and had the opportunity to ask questions and assume patient care.
[2022-08-23] MEDS: potassium chloride 10mEq ER tablet PO SCH (07:26)
[2022-08-23] MEDS: nicotine 14mg patch - 24hr TD SCH ×2 (07:26→08:00)
[2022-08-23] MEDS: furosemide 40mg tablet PO SCH (07:26)
[2022-08-23 07:49] VITALS: BP 130/69
--- NOTE | 2022-08-23 09:00 | NUR ---
Dressing changed at the 0900 hour with with Surgeon at this time. Pictures taken and dressing replaced by charge nurse at this time.
--- NOTE | 2022-08-23 09:06 | NUR ---
PAGER ID: [phone] MESSAGE: Ramos Surg re: [id number] Johnny Mensah Patient just had positive wound results submitted from wound care of MRSA in Left ankle wound, Patient also postive MRSA nasal screen. Thanks
[2022-08-23 10:00] VITALS: BP 138/78
[2022-08-23 10:37] LABS: ALANINE AMINOTRANSFERASE 10 U/L (12-78); ALBUMIN 2.8 G/DL (3.4-5.0); ALBUMIN/GLOBULIN RATIO 0.8 (1.1-1.5); ALKALINE PHOSPHATASE 251 IU/L (46-116); ANION GAP 9 (8-16); ASPARTATE AMINO TRANSFERASE 22 U/L (10-37); BILIRUBIN,TOTAL 2.7 MG/DL (0.1-1.0); BLOOD UREA NITROGEN 10 MG/DL (7-18); BUN/CREATININE RATIO 14.9 (10.0-20.0); CALCIUM 9.2 MG/DL (8.5-10.1); CHLORIDE 100 MMOL/L (99-107); CREATININE 0.67 MG/DL (0.60-1.10); GLUCOSE 130 MG/DL (70-104); POTASSIUM 3.5 MMOL/L (3.5-5.1); SODIUM 137 MMOL/L (135-145); TOTAL CARBON DIOXIDE 27.8 MMOL/L (24-32); TOTAL PROTEIN 6.5 G/DL (6.4-8.2); eGFR > 90 ML/MIN
[2022-08-23 10:53] LABS: BASOPHILS # (AUTO) 0.1 X10'3 (0-0.2); BASOPHILS % (AUTO) 1.2 % (0-1); EOSINOPHILS # (AUTO) 0.1 X10'3 (0-0.9); EOSINOPHILS % (AUTO) 1.4 % (0-6); HEMATOCRIT 35.2 % (42.0-52.0); HEMOGLOBIN 11.2 g/dl (14.0-17.9); LYMPHOCYTES # (AUTO) 1.1 X10'3 (1.1-4.8); LYMPHOCYTES % (AUTO) 18.7 % (21-51); MEAN CORPUSCULAR HEMOGLOBIN 29.2 PG (27.0-31.0); MEAN CORPUSCULAR HGB CONC 31.9 g/dL (33.0-36.5); MEAN CORPUSCULAR VOLUME 91.5 FL (78-98); MONOCYTES # (AUTO) 0.5 X10'3 (0-0.9); MONOCYTES % (AUTO) 8.1 % (2-12); NEUTROPHILS % (AUTO) 70.6 % (42-75); PLATELET COUNT 119 X10'3 (140-440); RED BLOOD COUNT 3.85 X10'6 (4.70-6.10); RED CELL DISTRIBUTION WIDTH 17.4 % (11.5-14.5); WHITE BLOOD COUNT 5.7 X10'3 (4.5-11.0)
--- NOTE | 2022-08-23 13:57 | NUR ---
Student documentation: I have reviewed all interventions, assessments performed and documented by Maddie JUAREZ
[2022-08-23 18:00] VITALS: BP 123/60
[2022-08-23] MEDS: VANCOmycin 1250MG/NS 250ml Bag 250 ML IV SCH (18:26)
--- NOTE | 2022-08-23 19:06 | NUR ---
Problems reprioritized. Patient report given, questions answered & plan of care reviewed with SCOTT Delgadillo. Care done with SCOTT Beasley & Amina CHAVEZ.
[2022-08-23] MEDS: acetaminophen 325mg tablet PO PRN (22:42)
[2022-08-23] MEDS: LORazepam 1 MG tablet PO PRN (22:52)
[2022-08-23 22:55] VITALS: BP 142/85
[2022-08-24] MEDS: VANCOmycin 1250MG/NS 250ml Bag 250 ML IV SCH ×2 (01:59→10:00)
[2022-08-24] MEDS: morphine 2 MG/ML inj. syringe IV PRN ×2 (02:06→08:01)
--- NOTE | 2022-08-24 06:15 | NUR ---
Problems reprioritized. Patient report given, questions answered & plan of care reviewed with SHANON.
[2022-08-24 06:28] VITALS: BP 159/90
--- NOTE | 2022-08-24 06:30 | NUR ---
Patient in room JOSSIE 340. I have received report from Luh CHAVEZ and had the opportunity to ask questions and assume patient care.
[2022-08-24] MEDS: potassium chloride 10mEq ER tablet PO SCH (07:54)
[2022-08-24] MEDS: furosemide 40mg tablet PO SCH (07:55)
[2022-08-24] MEDS: nicotine 14mg patch - 24hr TD SCH (07:55)
[2022-08-24 10:00] VITALS: BP 118/63
[2022-08-24] MEDS ORDERED: HYDROcodone/acetaminophen 10/325mg tab PO PRN (10:45)
[2022-08-24] MEDS ORDERED: linezolid 600mg tablet PO ONE (10:45)
[2022-08-24] MEDS ORDERED: LINE600T12 PO (11:48)
--- NOTE | 2022-08-24 15:09 | NUR ---
Patient discharged home on and left with family. Patient was educated on new medications and dressing changes at this time. Patient left with all belongings and showed verbal understanding of discharge teaching at this time. Patient has already spoken with patient pharmacy and will order picker/assembler medications on the way home. Patient is follow up with MD in a week and follow up with woundcare in 2-3 days time. Patient was taken down to private vehicle by wheelchair.
[2022-08-24] MEDS ORDERED: VANCOMYCIN LEVEL IV ONE (16:30)
== END 2022-08-24 13:30 | disposition home or self-care (01) | DRG 603 ==
LOC: SUR 3N 16:29
PROVIDERS: ADMIT Internal Medicine; ATTEND Internal Medicine
DX: L03.116 Cellulitis of left lower limb (principal); Z68.42 Body mass index [BMI] 45.0-49.9, adult; E66.9 Obesity, unspecified; I50.9 Heart failure, unspecified
CPT/HCPCS: 36415; 71045; 73701; 80053; 80202; 84145; 85025; 85651; 86140; 87040; 87081; 93005; 97161; 97530; A6446; A6449; G0378; J2270; J2405; J3370; J3490; J7030; J7040; Q9967

== ENCOUNTER 2022-09-29 09:47 | Inpatient (IN) | payer OTHER ==
[~2022-09-29] VITALS: Ht 175.3 cm; Wt 150.0 kg
[~2022-09-29 09:47] MED LIST changes: -ASPI-1265 PO; +CELE-85 PO; -CEPH-585 PO; +HYDR-3972 PO; -HYDR-4383 PO; -IBUP-1984 PO; -IBUP-1985 PO; -LIDO700A32 TOP; -POTA-192 PO; +POTA-206 PO
[2022-09-29 10:05] LABS: BASOPHILS % (AUTO) 0.1 % (0-1); EOSINOPHILS % (AUTO) 0.1 % (0-6); HEMATOCRIT 38.5 % (42.0-52.0); HEMOGLOBIN 12.5 g/dl (14.0-17.9); LYMPHOCYTES # (AUTO) 0.5 X10'3 (1.1-4.8); LYMPHOCYTES % (AUTO) 4.9 % (21-51); MEAN CORPUSCULAR HEMOGLOBIN 28.9 PG (27.0-31.0); MEAN CORPUSCULAR HGB CONC 32.4 g/dL (33.0-36.5); MEAN CORPUSCULAR VOLUME 89.2 FL (78-98); MEAN PLATELET VOLUME 9.3 FL (7.4-10.4); MONOCYTES # (AUTO) 1.1 X10'3 (0-0.9); MONOCYTES % (AUTO) 11.4 % (2-12); NEUTROPHILS # (AUTO) 8.2 X10'3 (1.8-7.7); NEUTROPHILS % (AUTO) 83.5 % (42-75); PLATELET COUNT 111 X10'3 (140-440); RED BLOOD COUNT 4.32 X10'6 (4.70-6.10); RED CELL DISTRIBUTION WIDTH 16.7 % (11.5-14.5); WHITE BLOOD COUNT 9.8 X10'3 (4.5-11.0)
[2022-09-29 10:18] LABS: ALANINE AMINOTRANSFERASE 8 U/L (12-78); ALBUMIN 3.1 G/DL (3.4-5.0); ALKALINE PHOSPHATASE 231 IU/L (46-116); ANION GAP 10 (8-16); ASPARTATE AMINO TRANSFERASE 21 U/L (10-37); BILIRUBIN,TOTAL 5.8 MG/DL (0.1-1.0); BLOOD UREA NITROGEN 14 MG/DL (7-18); CALCIUM 9.6 MG/DL (8.5-10.1); CHLORIDE 96 MMOL/L (99-107); GLUCOSE 141 MG/DL (70-104); POTASSIUM 3.6 MMOL/L (3.5-5.1); SODIUM 133 MMOL/L (135-145); TOTAL CARBON DIOXIDE 27.5 MMOL/L (24-32); eGFR > 90 ML/MIN
[2022-09-29 10:25] LABS: MAGNESIUM 1.6 MG/DL (1.5-2.4)
[2022-09-29 10:30] LABS: ALBUMIN/GLOBULIN RATIO 0.8 (1.1-1.5); TOTAL PROTEIN 6.9 G/DL (6.4-8.2)
[2022-09-29 10:37] LABS: APTT 32 SECONDS (22-32); D-DIMER 3.42 MG/L FEU (0-0.50)
[2022-09-29] MEDS ORDERED: normal saline 1000ml 1,000 ML IV ONE (11:05)
[2022-09-29] MEDS ORDERED: furosemide 10 MG/1 ML 10ml inj IV ONE (11:10)
[2022-09-29] MEDS ORDERED: iohexol 350MG/ML 100ml bottle IV ONE (11:22)
[2022-09-29] MEDS ORDERED: HYDROcodone/acetaminophen 10/325mg tab PO ONE (12:40)
[2022-09-29] MEDS ORDERED: CefTRIAXone 2gm/D5W 50ml BAG 50 ML IV ONE (13:20)
[2022-09-29] MEDS ORDERED: azithromycin/NS 500mg/250ml 250 ML IV ONE (13:20)
[2022-09-29 14:02] LABS: ABG BASE EXCESS 1.8 mmol/L (-2.0-2.0); ABG OXYGEN SATURATION 96.5 % (94-97); ABG PCO2 (T) 34.4 mmHg (35.0-48.0); ABG PO2 (T) 84.1 mmHg (75.0-100.0); ALLEN'S TEST POSITIVE; FCOHb 1.9 % (0.0-3.9); FLOW 3 L/min; FMetHb 0.4 % (0.0-1.5); FO2Hb 94.3 % (94-97); PATIENT TEMPERATURE 36.9
[2022-09-29 14:04] LABS: LACTATE DEHYDROGENASE 218 U/L (85-227)
[2022-09-29 14:43] LABS: URINE AMPHETAMINE SCREEN NEGATIVE (Neg); URINE BARBITUATE SCREEN NEGATIVE (Neg); URINE BENZODIAZEPINES SCREEN NEGATIVE (Neg); URINE CANNABINOID SCREEN POSITIVE (Neg); URINE COCAINE SCREEN NEGATIVE (Neg); URINE METHADONE SCREEN NEGATIVE (Neg); URINE OPIATE SCREEN POSITIVE (Neg); URINE PHENCYCLIDINE SCREEN NEGATIVE (Neg)
[2022-09-29] MEDS ORDERED: ipratropium/albuterol 3ml nebule NEB PRN (16:45)
[2022-09-29] MEDS ORDERED: bisacodyl 10mg suppository rectal RC PRN (16:50)
[2022-09-29] MEDS ORDERED: acetaminophen 325mg tablet PO PRN ×2 (16:50)
[2022-09-29] MEDS ORDERED: magnesium 4gm in 100ml NS 100 ML IV PRN (16:50)
[2022-09-29] MEDS ORDERED: ondansetron/PF 4mg/2ml inj IV PRN (16:50)
[2022-09-29] MEDS ORDERED: mag hydrox/Alum hydrox/simeth 30ml oral suspension PO PRN (16:50)
[2022-09-29] MEDS ORDERED: potassium Cl 20 mEq SR tablet PO PRN (16:50)
[2022-09-29] MEDS ORDERED: potassium Cl 40MEQ/1/2NS 520ml 520 ML IV PRN (16:50)
[2022-09-29] MEDS ORDERED: magnesium 2GM in 50ml NS 50 ML IV PRN (16:50)
[2022-09-29] MEDS ORDERED: magnesium hydroxide 30ml (MOM) UD suspension PO PRN (16:50)
[2022-09-29] MEDS ORDERED: morphine 2 MG/ML inj. syringe IV PRN ×2 (16:50)
[2022-09-29] MEDS ORDERED: HYDROcodone/acetaminophen 5mg/325mg tablet PO PRN (16:50)
[2022-09-29] MEDS ORDERED: magnesium Cl slow-release 64mg tablet PO PRN (16:50)
[2022-09-29] MEDS ORDERED: diphenhydrAMINE 25mg capsule PO PRN (16:50)
[2022-09-29 17:32] LABS: HEMOGLOBIN A1C 4.9 % (4.5-6.2)
[2022-09-29 18:30] VITALS: BP 124/63
[2022-09-29] MEDS: docusate sod 100mg capsule PO SCH (20:00)
[2022-09-29] MEDS: K and/or MAG REPLACEMENT MC SCH (20:00)
[2022-09-29] MEDS: ipratropium/albuterol 3ml nebule NEB SCH ×2 (20:08→23:00)
[2022-09-29] MEDS: normal saline 1000ml 1,000 ML IV SCH (21:19)
[2022-09-29] MEDS: furosemide 10 MG/1 ML 10ml inj IV SCH (21:23)
[2022-09-29] MEDS: heparin, porcine 5000 units/ml vial SQ SCH (21:24)
[2022-09-29 22:00] VITALS: BP 97/46
[2022-09-29] MEDS: Melatonin 3mg tablet PO SCH (22:30)
[2022-09-29] MEDS: nicotine 21mg patch - 24 hr TD SCH (22:30)
[2022-09-30] VITALS (7 sets, daily range): BP systolic 98–130; BP diastolic 46–76
[2022-09-30] MEDS: HYDROcodone/acetaminophen 10/325mg tab PO PRN ×4 (01:20→20:29)
[2022-09-30] MEDS: ipratropium/albuterol 3ml nebule NEB SCH ×6 (01:33→23:00)
--- NOTE | 2022-09-30 06:31 | NUR ---
Problems reprioritized. Patient report given, questions answered & plan of care reviewed with emelia CHAVEZ.
[2022-09-30 07:22] LABS: BASOPHILS % (AUTO) 0.5 % (0-1); EOSINOPHILS # (AUTO) 0.1 X10'3 (0-0.9); EOSINOPHILS % (AUTO) 0.7 % (0-6); HEMOGLOBIN 11.3 g/dl (14.0-17.9); LYMPHOCYTES # (AUTO) 0.8 X10'3 (1.1-4.8); LYMPHOCYTES % (AUTO) 9.7 % (21-51); MEAN CORPUSCULAR HEMOGLOBIN 29.5 PG (27.0-31.0); MEAN CORPUSCULAR HGB CONC 33.2 g/dL (33.0-36.5); MEAN CORPUSCULAR VOLUME 88.6 FL (78-98); MEAN PLATELET VOLUME 9.1 FL (7.4-10.4); MONOCYTES % (AUTO) 11.8 % (2-12); NEUTROPHILS # (AUTO) 6.3 X10'3 (1.8-7.7); NEUTROPHILS % (AUTO) 77.3 % (42-75); PLATELET COUNT 112 X10'3 (140-440); RED BLOOD COUNT 3.84 X10'6 (4.70-6.10); RED CELL DISTRIBUTION WIDTH 16.5 % (11.5-14.5); WHITE BLOOD COUNT 8.2 X10'3 (4.5-11.0)
[2022-09-30 07:24] LABS: ALBUMIN 2.6 G/DL (3.4-5.0); ALKALINE PHOSPHATASE 195 IU/L (46-116); ANION GAP 4 (8-16); ASPARTATE AMINO TRANSFERASE 22 U/L (10-37); BILIRUBIN,TOTAL 4.3 MG/DL (0.1-1.0); BLOOD UREA NITROGEN 15 MG/DL (7-18); BUN/CREATININE RATIO 23.4 (10.0-20.0); CALCIUM 9.1 MG/DL (8.5-10.1); CHLORIDE 95 MMOL/L (99-107); CREATININE 0.64 MG/DL (0.60-1.10); GLUCOSE 121 MG/DL (70-104); HDL CHOLESTEROL 21 MG/DL (35-60); LDL CHOLESTEROL 56 MG/DL (50-100); MAGNESIUM 1.5 MG/DL (1.5-2.4); POTASSIUM 3.2 MMOL/L (3.5-5.1); SODIUM 132 MMOL/L (135-145); TOTAL CARBON DIOXIDE 32.7 MMOL/L (24-32); eGFR > 90 ML/MIN
[2022-09-30 07:29] LABS: ALANINE AMINOTRANSFERASE < 6 U/L (12-78); ALBUMIN/GLOBULIN RATIO 0.7 (1.1-1.5); CHOL/HDL RATIO 4.6 (0.00-4.99); CHOLESTEROL 96 MG/DL (0-200); PHOSPHORUS 3.2 MG/DL (2.3-4.5); TOTAL PROTEIN 6.2 G/DL (6.4-8.2); TRIGLYCERIDES 85 MG/DL (20-135)
[2022-09-30] MEDS: docusate sod 100mg capsule PO SCH ×2 (07:43→20:29)
[2022-09-30] MEDS: furosemide 10 MG/1 ML 10ml inj IV SCH ×2 (07:43→20:11)
[2022-09-30] MEDS: K and/or MAG REPLACEMENT MC SCH ×2 (07:44→20:31)
[2022-09-30] MEDS: azithromycin/NS 500mg/250ml 250 ML IV SCH (07:44)
[2022-09-30] MEDS: heparin, porcine 5000 units/ml vial SQ SCH ×2 (07:44→19:32)
[2022-09-30] MEDS: CefTRIAXone/D5W-Rocephin 1gm 50 ML IV SCH (08:00)
[2022-09-30 10:14] LABS: HIV ANTIBODY 1&2 RAPID NON-REACTIVE (Neg)
[2022-09-30] MEDS: potassium Cl 20 mEq SR tablet PO PRN ×3 (10:38→18:28)
--- NOTE | 2022-09-30 15:03 | NUR ---
PRESSURE ULCER EDUCATION: DEFINITION: A pressure ulcer is an area of skin that breaks down when you stay in one position too long. The constant pressure against the skin reduces the blood flow to that area and the affected tissue dies. CAUSES: "Being bedridden or in a wheelchair "Fragile skin "Having a chronic condition, such as diabetes or vascular disease "Inability to move certain parts of your body without assistance "Older age "Incontinence of urine or stool SYMPTOMS: "A reddened area that DOES NOT turn white when pressed on - this can be the beginning of a pressure ulcer "A blister, deep sore or a crater - these can be advanced pressure ulcers FIRST AID: "Relieve the pressure on this area "Keep the area clean and dry "Call your primary doctor if you see any of the above symptoms "DO NOT massage the area "DO NOT use a donut shaped or ring shaped pillow- these actually interfere with the blood flow and cause complications PREVENTION: "Check for pressure ulcers everyday "Change position at least every two hours to relieve pressure "Use items that help relieve pressure- pillows, sheepskin, foam padding, and powders. "Keep skin clean and dry "Eat healthy well balanced meals "Exercise daily IF YOU SEE ANY OF THESE SYMPTOMS WHILE IN THE HOSPITAL - TELL YOUR NURSE IMMEDIATELY. IF YOU SEE ANY OF THESE SYMPTOMS WHILE AT HOME OR HAVE ANY QUESTIONS OR CONCERNS ABOUT PRESSURE ULCERS - CALL YOUR PRIMARY DOCTOR IMMEDIATELY. Addendum: 09/30/22 at 1503 by Leni Rodriguez RN Amended: Links added.
--- NOTE | 2022-09-30 18:53 | NUR ---
Patient in room PCU 3022. I have received report from SCOTT Lazo and had the opportunity to ask questions and assume patient care.
--- NOTE | 2022-09-30 20:20 | NUR ---
COATER HAND documentation: I have reviewed and agree with all interventions, assessments performed and documented by Yael Shaikh COATER HAND.
[2022-09-30] MEDS: Melatonin 3mg tablet PO SCH (21:37)
[2022-09-30] MEDS: nicotine 21mg patch - 24 hr TD SCH (21:37)
--- NOTE | 2022-10-01 00:45 | NUR ---
Pt had abnormal findings on tele monitor. Spoke with Pt who denied chest pain, and appeared to be asymptomatic. VS are as follows: 105/61, and HR 103. Notified both charge nurse, and hospitalist. Will standby for further orders.
--- NOTE | 2022-10-01 01:02 | NUR ---
Sent a page to hospitalistConstantino. "3020O: Sherif Mensah. Had a run of bundle block on their tele monitor. Pt is asymptomatic, and denies any chest pain. VS: 105/61, HR. 103. Thank you [phone] Yael."
[2022-10-01 02:00] VITALS: BP 124/50
[2022-10-01] MEDS: ipratropium/albuterol 3ml nebule NEB SCH ×6 (03:00→23:29)
[2022-10-01] MEDS: HYDROcodone/acetaminophen 10/325mg tab PO PRN ×3 (03:48→19:22)
--- NOTE | 2022-10-01 06:39 | NUR ---
Problems reprioritized. Patient report given, questions answered & plan of care reviewed with SCOTT Lazo.
[2022-10-01 07:00] VITALS: BP 124/57
[2022-10-01 07:28] LABS: BASOPHILS # (AUTO) 0.1 X10'3 (0-0.2); BASOPHILS % (AUTO) 1.1 % (0-1); EOSINOPHILS # (AUTO) 0.2 X10'3 (0-0.9); EOSINOPHILS % (AUTO) 1.6 % (0-6); HEMATOCRIT 33.5 % (42.0-52.0); HEMOGLOBIN 11.1 g/dl (14.0-17.9); LYMPHOCYTES # (AUTO) 0.9 X10'3 (1.1-4.8); LYMPHOCYTES % (AUTO) 9.3 % (21-51); MEAN CORPUSCULAR HEMOGLOBIN 29.4 PG (27.0-31.0); MEAN CORPUSCULAR VOLUME 89.2 FL (78-98); MEAN PLATELET VOLUME 8.9 FL (7.4-10.4); MONOCYTES # (AUTO) 0.7 X10'3 (0-0.9); MONOCYTES % (AUTO) 7.7 % (2-12); NEUTROPHILS # (AUTO) 7.8 X10'3 (1.8-7.7); NEUTROPHILS % (AUTO) 80.3 % (42-75); PLATELET COUNT 125 X10'3 (140-440); RED BLOOD COUNT 3.75 X10'6 (4.70-6.10); RED CELL DISTRIBUTION WIDTH 16.7 % (11.5-14.5); WHITE BLOOD COUNT 9.7 X10'3 (4.5-11.0)
[2022-10-01] MEDS: azithromycin/NS 500mg/250ml 250 ML IV SCH (08:00)
[2022-10-01 08:02] LABS: ALANINE AMINOTRANSFERASE 6 U/L (12-78); ALBUMIN 2.7 G/DL (3.4-5.0); ALBUMIN/GLOBULIN RATIO 0.8 (1.1-1.5); ALKALINE PHOSPHATASE 214 IU/L (46-116); ANION GAP 8 (8-16); ASPARTATE AMINO TRANSFERASE 19 U/L (10-37); BILIRUBIN,TOTAL 3.2 MG/DL (0.1-1.0); BLOOD UREA NITROGEN 17 MG/DL (7-18); BUN/CREATININE RATIO 28.3 (10.0-20.0); CALCIUM 8.9 MG/DL (8.5-10.1); CHLORIDE 93 MMOL/L (99-107); GLUCOSE 112 MG/DL (70-104); MAGNESIUM 1.5 MG/DL (1.5-2.4); PHOSPHORUS 3.3 MG/DL (2.3-4.5); POTASSIUM 3.2 MMOL/L (3.5-5.1); SODIUM 131 MMOL/L (135-145); TOTAL PROTEIN 6.2 G/DL (6.4-8.2); eGFR > 90 ML/MIN
[2022-10-01] MEDS: nicotine 21mg patch - 24 hr TD SCH (08:15)
[2022-10-01] MEDS: docusate sod 100mg capsule PO SCH ×2 (08:16→19:21)
[2022-10-01] MEDS: K and/or MAG REPLACEMENT MC SCH ×2 (08:16→19:25)
[2022-10-01] MEDS: heparin, porcine 5000 units/ml vial SQ SCH ×2 (08:16→19:22)
[2022-10-01] MEDS: furosemide 10 MG/1 ML 10ml inj IV SCH ×2 (08:16→19:25)
[2022-10-01] MEDS: CefTRIAXone/D5W-Rocephin 1gm 50 ML IV SCH (08:16)
[2022-10-01] MEDS: potassium Cl 20 mEq SR tablet PO PRN ×4 (08:16→19:27)
[2022-10-01 09:50] LABS: ANISOCYTOSIS 1+; PLATELET ESTIMATE DECREASED; POIKILOCYTOSIS 1+; TOTAL CELLS COUNTED 100
[2022-10-01 11:07] VITALS: BP 121/49
[2022-10-01 15:00] VITALS: BP 128/72
[2022-10-01] MEDS: normal saline 1000ml 1,000 ML IV SCH (17:16)
[2022-10-01 17:18] LABS: HBSAG SCREEN Negative (Negative); HEP A AB, IGM Negative (Negative); HEPATITIS C VIRUS ANTIBODY Non Reactive (Non Reactive)
[2022-10-01] MEDS: Melatonin 3mg tablet PO SCH (19:21)
[2022-10-01 19:30] VITALS: BP 112/56
--- NOTE | 2022-10-01 23:53 | NUR ---
Patient found with vape in bathroom. States he was cleaning it but then later had it hidden under blankets next to his chair he was sitting in. Requested to store vape for pt. Pt. requesting another nicotine patch. States patches only work for 12 hours. Had AM 24 hour patch removed earlier. Charge aware. Addendum: 10/01/22 at 2356 by Sangeetha Pedraza RN Vape placed in pt's hard chart
[2022-10-02] MEDS: nicotine 21mg patch - 24 hr TD SCH ×2 (01:33→08:08)
[2022-10-02] MEDS: ipratropium/albuterol 3ml nebule NEB SCH ×6 (02:55→22:44)
[2022-10-02 03:43] VITALS: BP 103/50
[2022-10-02 06:00] VITALS: BP 115/56
--- NOTE | 2022-10-02 06:28 | NUR ---
Gave report to Korina CHAVEZ.
[2022-10-02] MEDS: CefTRIAXone/D5W-Rocephin 1gm 50 ML IV SCH (08:00)
[2022-10-02] MEDS: docusate sod 100mg capsule PO SCH ×2 (08:00→22:10)
[2022-10-02] MEDS: K and/or MAG REPLACEMENT MC SCH ×2 (08:00→20:00)
[2022-10-02] MEDS: azithromycin/NS 500mg/250ml 250 ML IV SCH (08:07)
[2022-10-02] MEDS: HYDROcodone/acetaminophen 10/325mg tab PO PRN ×3 (08:07→22:10)
[2022-10-02] MEDS: furosemide 10 MG/1 ML 10ml inj IV SCH ×2 (08:07→22:09)
[2022-10-02] MEDS: heparin, porcine 5000 units/ml vial SQ SCH ×2 (08:08→22:11)
[2022-10-02 08:19] LABS: BASOPHILS # (AUTO) 0.1 X10'3 (0-0.2); BASOPHILS % (AUTO) 0.8 % (0-1); EOSINOPHILS # (AUTO) 0.1 X10'3 (0-0.9); EOSINOPHILS % (AUTO) 1.1 % (0-6); HEMATOCRIT 33.9 % (42.0-52.0); LYMPHOCYTES # (AUTO) 1.4 X10'3 (1.1-4.8); MEAN CORPUSCULAR HEMOGLOBIN 28.9 PG (27.0-31.0); MEAN CORPUSCULAR HGB CONC 32.5 g/dL (33.0-36.5); MEAN CORPUSCULAR VOLUME 88.8 FL (78-98); MEAN PLATELET VOLUME 8.6 FL (7.4-10.4); MONOCYTES # (AUTO) 1.3 X10'3 (0-0.9); MONOCYTES % (AUTO) 13.4 % (2-12); NEUTROPHILS # (AUTO) 6.7 X10'3 (1.8-7.7); NEUTROPHILS % (AUTO) 69.7 % (42-75); PLATELET COUNT 132 X10'3 (140-440); RED BLOOD COUNT 3.82 X10'6 (4.70-6.10); RED CELL DISTRIBUTION WIDTH 16.7 % (11.5-14.5); WHITE BLOOD COUNT 9.6 X10'3 (4.5-11.0)
[2022-10-02 08:45] LABS: ALANINE AMINOTRANSFERASE 13 U/L (12-78); ALBUMIN 2.8 G/DL (3.4-5.0); ALBUMIN/GLOBULIN RATIO 0.7 (1.1-1.5); ALKALINE PHOSPHATASE 296 IU/L (46-116); ANION GAP 6 (8-16); ASPARTATE AMINO TRANSFERASE 32 U/L (10-37); BILIRUBIN,TOTAL 2.6 MG/DL (0.1-1.0); BLOOD UREA NITROGEN 17 MG/DL (7-18); BUN/CREATININE RATIO 22.4 (10.0-20.0); CALCIUM 8.7 MG/DL (8.5-10.1); CHLORIDE 93 MMOL/L (99-107); CREATININE 0.76 MG/DL (0.60-1.10); GLUCOSE 109 MG/DL (70-104); MAGNESIUM 1.5 MG/DL (1.5-2.4); POTASSIUM 4.1 MMOL/L (3.5-5.1); SODIUM 130 MMOL/L (135-145); TOTAL CARBON DIOXIDE 31.3 MMOL/L (24-32); TOTAL PROTEIN 6.6 G/DL (6.4-8.2); eGFR > 90 ML/MIN
[2022-10-02 09:04] LABS: ANISOCYTOSIS 1+; PLATELET ESTIMATE DECREASED; POIKILOCYTOSIS 1+; TOTAL CELLS COUNTED 100
[2022-10-02 10:10] LABS: CLARITY,URINE CLEAR (Clear); COLOR,URINE YELLOW (Yellow); GLUCOSE, URINE NEGATIVE (Neg); KETONES,URINE NEGATIVE (Neg); LEUKOCYTE ESTERASE ,URINE NEGATIVE (Neg); NITRITES, URINE NEGATIVE (Neg); OCCULT BLOOD,URINE TRACE-INTACT (Neg); PH,URINE 5.5 (4.8-8.0); PROTEIN,URINE NEGATIVE (Neg); UROBILINOGEN,URINE 0.2 E.U/dL (0.2-1.0)
[2022-10-02 10:17] LABS: UA COLLECTION TYPE NON-SPECIFIED
[2022-10-02 10:21] LABS: SQUAMOUS EPITHELIAL CELL,UR FEW /LPF (FEW)
[2022-10-02 10:23] LABS: BACTERIA,URINE FEW /HPF (Neg); FINE GRANULAR CAST 0-3 /LPF (NEGATIVE); RBC,URINE 0-2 /HPF (0-2); WBC,URINE 0-4 /HPF (0-4)
[2022-10-02 10:24] LABS: TRANSITIONAL EPI CELLS,URINE FEW /HPF
[2022-10-02 10:26] LABS: MUCUS STRANDS FEW /LPF (Neg)
[2022-10-02 11:00] VITALS: BP 105/66
[2022-10-02 15:00] VITALS: BP 99/54
[2022-10-02 18:00] VITALS: BP 109/53
[2022-10-02] MEDS: Melatonin 3mg tablet PO SCH (22:10)
[2022-10-03 02:50] VITALS: BP 114/57
[2022-10-03] MEDS: ipratropium/albuterol 3ml nebule NEB SCH ×3 (03:22→12:15)
[2022-10-03 06:04] VITALS: BP 109/55
--- NOTE | 2022-10-03 06:26 | NUR ---
Gave report to Korina CHAVEZ.
[2022-10-03 06:32] LABS: HEMOGLOBIN 10.3 g/dl (14.0-17.9)
[2022-10-03 06:36] LABS: BASOPHILS % (AUTO) 0.3 % (0-1); EOSINOPHILS # (AUTO) 0.1 X10'3 (0-0.9); EOSINOPHILS % (AUTO) 1.3 % (0-6); HEMATOCRIT 30.8 % (42.0-52.0); LYMPHOCYTES # (AUTO) 1.5 X10'3 (1.1-4.8); LYMPHOCYTES % (AUTO) 13.9 % (21-51); MEAN CORPUSCULAR HEMOGLOBIN 29.6 PG (27.0-31.0); MEAN CORPUSCULAR HGB CONC 33.3 g/dL (33.0-36.5); MEAN CORPUSCULAR VOLUME 88.6 FL (78-98); MONOCYTES # (AUTO) 1.4 X10'3 (0-0.9); NEUTROPHILS % (AUTO) 71.5 % (42-75); PLATELET COUNT 152 X10'3 (140-440); RED BLOOD COUNT 3.48 X10'6 (4.70-6.10); RED CELL DISTRIBUTION WIDTH 16.2 % (11.5-14.5); WHITE BLOOD COUNT 11.2 X10'3 (4.5-11.0)
[2022-10-03 06:55] LABS: ALANINE AMINOTRANSFERASE 13 U/L (12-78); ALBUMIN 2.7 G/DL (3.4-5.0); ALBUMIN/GLOBULIN RATIO 0.8 (1.1-1.5); ALKALINE PHOSPHATASE 299 IU/L (46-116); ANION GAP 6 (8-16); ASPARTATE AMINO TRANSFERASE 29 U/L (10-37); BILIRUBIN,TOTAL 2.4 MG/DL (0.1-1.0); BLOOD UREA NITROGEN 19 MG/DL (7-18); BUN/CREATININE RATIO 26.4 (10.0-20.0); CALCIUM 8.8 MG/DL (8.5-10.1); CHLORIDE 92 MMOL/L (99-107); CREATININE 0.72 MG/DL (0.60-1.10); GLUCOSE 104 MG/DL (70-104); MAGNESIUM 1.5 MG/DL (1.5-2.4); PHOSPHORUS 4.1 MG/DL (2.3-4.5); POTASSIUM 3.8 MMOL/L (3.5-5.1); SODIUM 130 MMOL/L (135-145); TOTAL CARBON DIOXIDE 31.7 MMOL/L (24-32); TOTAL PROTEIN 6.3 G/DL (6.4-8.2); eGFR > 90 ML/MIN
[2022-10-03 07:29] LABS: ANISOCYTOSIS 1+; PLATELET ESTIMATE NORMAL; TOTAL CELLS COUNTED 100
[2022-10-03] MEDS: furosemide 10 MG/1 ML 10ml inj IV SCH (07:55)
[2022-10-03] MEDS: CefTRIAXone/D5W-Rocephin 1gm 50 ML IV SCH (07:55)
[2022-10-03] MEDS: docusate sod 100mg capsule PO SCH (07:55)
[2022-10-03] MEDS: nicotine 21mg patch - 24 hr TD SCH (07:56)
[2022-10-03] MEDS: heparin, porcine 5000 units/ml vial SQ SCH (07:56)
[2022-10-03] MEDS: HYDROcodone/acetaminophen 10/325mg tab PO PRN (07:58)
[2022-10-03] MEDS: K and/or MAG REPLACEMENT MC SCH (08:00)
[2022-10-03] MEDS ORDERED: azithromycin 250mg tablet PO SCH (08:00)
[2022-10-03 11:00] VITALS: BP 98/58
--- NOTE | 2022-10-03 13:59 | NUR ---
Initial: Pt presented with c/o SOB and admit for acute on chronic respiratory failure with COPD/CHF exacerbation and bilat PNA. Pt seen by wound care, per note pt with a wound to left heel though no staging documented, see [facility] note. Pt on a heart healthy diet and eating well, documented with mostly 100% PO intake though down to 75-100% PO intake at three meals since admit, overall just meeting minimum estimated nutrient needs. D/w dietary to send double protein with meals for satiety and to further assist with meeting estimated nutrient needs. LBM 6/ per EMR. Will continue to follow and monitor need for further nutrition intervention. Recommendations: 1) Liberalize to regular diet if physician agreeable given hyponatremia and lipid panel WNL with the exception of low HDL 2) Double eggs WB, double meat BIDLD 3) Routine bowel care 4) Weekly scaled weights Addendum: 10/03/22 at [address] Amended: Links added.
[2022-10-03] MEDS ORDERED: BUDE10.22 INH (14:44)
[2022-10-03] MEDS ORDERED: NICO-687 TD (14:44)
[2022-10-03] MEDS ORDERED: THIA50TA10 PO (14:44)
[2022-10-03] MEDS ORDERED: LACT1CAP55 PO (14:44)
[2022-10-03] MEDS ORDERED: POTA-207 PO (14:44)
[2022-10-03] MEDS ORDERED: CEFD300C3 PO (14:44)
[2022-10-03] MEDS ORDERED: ALBU6.7H14 INH (14:44)
[2022-10-03] MEDS ORDERED: FOLI1TAB27 PO (14:44)
[2022-10-03] MEDS ORDERED: CARV3.12 PO (14:44)
[2022-10-03] MEDS ORDERED: MULT-1085 PO (14:44)
[2022-10-03] MEDS ORDERED: FURO-150 PO (14:44)
--- NOTE | 2022-10-03 14:51 | NUR ---
sent to [facility]: [phone]: Pt anxious to discharge. Looking for orders please. thank you.
== END 2022-10-03 15:29 | disposition home health service (06) | DRG 871 ==
LOC: ER 09:47 → ED HOLD 17:04 → PCU 3S 19:15
PROVIDERS: ADMIT Family Medicine; ATTEND Family Medicine
PROC: B32T1ZZ Computerized Tomography (CT Scan) of Left Pulmonary Artery using Low Osmolar Contrast (ICD-10-PCS; principal; 2022-09-29)
PROC: B3201ZZ Computerized Tomography (CT Scan) of Thoracic Aorta using Low Osmolar Contrast (ICD-10-PCS; 2022-09-29)
PROC: B32S1ZZ Computerized Tomography (CT Scan) of Right Pulmonary Artery using Low Osmolar Contrast (ICD-10-PCS; 2022-09-29)
DX: A41.9 Sepsis, unspecified organism (principal); I50.33 Acute on chronic diastolic (congestive) heart failure; J18.9 Pneumonia, unspecified organism; J96.20 Acute and chronic respiratory failure, unspecified whether with hypoxia or hypercapnia; E66.2 Morbid (severe) obesity with alveolar hypoventilation; J44.0 Chronic obstructive pulmonary disease with (acute) lower respiratory infection; J44.1 Chronic obstructive pulmonary disease with (acute) exacerbation; L97.929 Non-pressure chronic ulcer of unspecified part of left lower leg with unspecified severity; R04.2 Hemoptysis; Z68.42 Body mass index [BMI] 45.0-49.9, adult; K70.30 Alcoholic cirrhosis of liver without ascites; K82.4 Cholesterolosis of gallbladder; Z60.2 Problems related to living alone; F10.20 Alcohol dependence, uncomplicated; F17.200 Nicotine dependence, unspecified, uncomplicated; I27.81 Cor pulmonale (chronic); I27.20 Pulmonary hypertension, unspecified; G89.29 Other chronic pain; M54.9 Dorsalgia, unspecified; Z71.41 Alcohol abuse counseling and surveillance of alcoholic; Z71.6 Tobacco abuse counseling; Z71.3 Dietary counseling and surveillance; Z71.51 Drug abuse counseling and surveillance of drug abuser
CPT/HCPCS: 36415; 36600; 71045; 71275; 76700; 80053; 80061; 80305; 81001; 82803; 83036; 83605; 83615; 83735; 83880; 84100; 84145; 84484; 85007; 85018; 85025; 85379; 85610; 85730; 86703; 86705; 86706; 86709; 86803; 87040; 87081; 87340; 87522; 93005; 94640; 94760; 97110; 97161; 97530; 99285; A4615; A6258; G0378; J0456; J0696; J1644; J1940; J2405; J3490; J7030; Q9967

== ENCOUNTER 2023-02-10 17:05 | Inpatient (IN) | payer OTHER ==
[~2023-02-10] VITALS: Ht 180.3 cm; Wt 131.0 kg
[~2023-02-10 17:05] MED LIST changes: +ALBU8HFA INH; +BUDE10.22 INH; +CARV3.123 PO; -CELE-85 PO; +FOLI1TAB27 PO; +FURO20TA4 PO; -FURO40TA4 PO; +MULT-1074 PO; -POTA-206 PO; +POTA-366 PO; +THIA50TA10 PO
[2023-02-10 17:22] LABS: BASOPHILS # (AUTO) 0.1 X10'3 (0-0.2); EOSINOPHILS # (AUTO) 0.1 X10'3 (0-0.9); EOSINOPHILS % (AUTO) 1.1 % (0-6); HEMATOCRIT 41.4 % (42.0-52.0); HEMOGLOBIN 13.7 g/dl (14.0-17.9); LYMPHOCYTES # (AUTO) 1.3 X10'3 (1.1-4.8); LYMPHOCYTES % (AUTO) 21.3 % (21-51); MEAN CORPUSCULAR HEMOGLOBIN 29.8 PG (27.0-31.0); MEAN CORPUSCULAR VOLUME 90.2 FL (78-98); MEAN PLATELET VOLUME 9.8 FL (7.4-10.4); MONOCYTES # (AUTO) 0.6 X10'3 (0-0.9); MONOCYTES % (AUTO) 9.6 % (2-12); NEUTROPHILS # (AUTO) 4.2 X10'3 (1.8-7.7); PLATELET COUNT 79 X10'3 (140-440); RED BLOOD COUNT 4.59 X10'6 (4.70-6.10); RED CELL DISTRIBUTION WIDTH 17.1 % (11.5-14.5); WHITE BLOOD COUNT 6.2 X10'3 (4.5-11.0)
[2023-02-10 17:35] LABS: ALANINE AMINOTRANSFERASE 89 U/L (12-78); ALBUMIN 3.9 G/DL (3.4-5.0); ALBUMIN/GLOBULIN RATIO 1.1 (1.1-1.5); ALKALINE PHOSPHATASE 262 IU/L (46-116); ANION GAP 12 (8-16); ASPARTATE AMINO TRANSFERASE 137 U/L (10-37); BILIRUBIN,TOTAL 3.7 MG/DL (0.1-1.0); BLOOD UREA NITROGEN 11 MG/DL (7-18); BUN/CREATININE RATIO 15.1 (10.0-20.0); CALCIUM 9.4 MG/DL (8.5-10.1); CHLORIDE 101 MMOL/L (99-107); CREATININE 0.73 MG/DL (0.60-1.10); GLUCOSE 139 MG/DL (70-104); POTASSIUM 3.4 MMOL/L (3.5-5.1); SODIUM 139 MMOL/L (135-145); TOTAL CARBON DIOXIDE 25.7 MMOL/L (24-32); TOTAL PROTEIN 7.3 G/DL (6.4-8.2); eCRCL 126 ML/MIN; eGFR > 90 ML/MIN
[2023-02-10 17:43] LABS: PRO BRAIN NATRIURETIC PEPTIDE 10482 PG/ML (0-125)
[2023-02-10] MEDS ORDERED: enoxaparin 100mg/ml syringe SUBCUT ONE (19:05)
[2023-02-10] MEDS ORDERED: aspirin 81mg tab.chew PO ONE (19:05)
[2023-02-10] MEDS ORDERED: magnesium 2GM in 50ml NS 50 ML IV ONE (19:05)
[2023-02-10] MEDS ORDERED: potassium Cl 20 mEq SR tablet PO ONE (19:05)
[2023-02-10 19:12] LABS: MAGNESIUM 1.6 MG/DL (1.5-2.4)
[2023-02-10 19:22] LABS: APTT 28 SECONDS (22-32); INR 1.1 INR; PROTHROMBIN TIME 11.8 SECONDS (9.0-12.0)
[2023-02-10] MEDS ORDERED: potassium Cl 20 mEq SR tablet PO PRN ×2 (19:25)
[2023-02-10] MEDS ORDERED: acetaminophen 325mg tablet PO PRN (19:25)
[2023-02-10] MEDS ORDERED: magnesium 2GM in 50ml NS 50 ML IV PRN (19:25)
[2023-02-10] MEDS ORDERED: magnesium 4gm in 100ml NS 100 ML IV PRN (19:25)
[2023-02-10] MEDS ORDERED: HYDROcodone/acetaminophen 5mg/325mg tablet PO PRN (19:25)
[2023-02-10] MEDS ORDERED: magnesium hydroxide 30ml (MOM) UD suspension PO PRN (19:25)
[2023-02-10] MEDS ORDERED: magnesium Cl slow-release 64mg tablet PO PRN (19:25)
[2023-02-10] MEDS ORDERED: potassium Cl 40MEQ/1/2NS 520ml 520 ML IV PRN (19:25)
[2023-02-10] MEDS ORDERED: metoprolol tartrate 1mg/ml inj IV ONE (19:30)
[2023-02-10] MEDS: metoprolol tartrate 50mg tablet PO SCH (20:00)
[2023-02-10] MEDS: docusate sod 100mg capsule PO SCH (20:00)
--- NOTE | 2023-02-10 20:44 | NUR ---
MD LESLIE LORA R/T LOW PLATELET COUNT.
[2023-02-10] MEDS: apixaban 5mg tablet PO SCH (21:05)
[2023-02-10] MEDS: K and/or MAG REPLACEMENT MC SCH (21:29)
[2023-02-10] MEDS ORDERED: HYDROcodone/acetaminophen 10/325mg tab PO PRN (22:10)
[2023-02-10] MEDS ORDERED: diltiazem 5mg/ml 5ml inj. IV ONE (22:30)
[2023-02-10] MEDS: ondansetron/PF 4mg/2ml inj IV PRN (23:08)
[2023-02-11] MEDS ORDERED: iohexol 350MG/ML 100ml bottle IV ONE (01:21)
[2023-02-11] MEDS: HYDROcodone/acetaminophen 10/325mg tab PO PRN ×2 (05:57→17:33)
[2023-02-11 07:16] LABS: BASOPHILS % (AUTO) 0.6 % (0-1); EOSINOPHILS % (AUTO) 0.6 % (0-6); HEMATOCRIT 38.3 % (42.0-52.0); HEMOGLOBIN 12.4 g/dl (14.0-17.9); LYMPHOCYTES # (AUTO) 0.9 X10'3 (1.1-4.8); LYMPHOCYTES % (AUTO) 14.1 % (21-51); MEAN CORPUSCULAR HEMOGLOBIN 29.6 PG (27.0-31.0); MEAN CORPUSCULAR HGB CONC 32.4 g/dL (33.0-36.5); MEAN CORPUSCULAR VOLUME 91.2 FL (78-98); MEAN PLATELET VOLUME 9.2 FL (7.4-10.4); MONOCYTES # (AUTO) 0.6 X10'3 (0-0.9); MONOCYTES % (AUTO) 9.6 % (2-12); NEUTROPHILS # (AUTO) 4.8 X10'3 (1.8-7.7); NEUTROPHILS % (AUTO) 75.1 % (42-75); PLATELET COUNT 62 X10'3 (140-440); RED CELL DISTRIBUTION WIDTH 17.1 % (11.5-14.5); WHITE BLOOD COUNT 6.4 X10'3 (4.5-11.0)
[2023-02-11 07:44] LABS: ALANINE AMINOTRANSFERASE 64 U/L (12-78); ALBUMIN 3.6 G/DL (3.4-5.0); ALBUMIN/GLOBULIN RATIO 1.2 (1.1-1.5); ALKALINE PHOSPHATASE 242 IU/L (46-116); ANION GAP 13 (8-16); ASPARTATE AMINO TRANSFERASE 86 U/L (10-37); BILIRUBIN,TOTAL 5.2 MG/DL (0.1-1.0); BLOOD UREA NITROGEN 14 MG/DL (7-18); BUN/CREATININE RATIO 21.2 (10.0-20.0); CALCIUM 9.2 MG/DL (8.5-10.1); CHLORIDE 97 MMOL/L (99-107); CREATININE 0.66 MG/DL (0.60-1.10); GLUCOSE 117 MG/DL (70-104); MAGNESIUM 1.7 MG/DL (1.5-2.4); POTASSIUM 3.7 MMOL/L (3.5-5.1); SODIUM 133 MMOL/L (135-145); TOTAL CARBON DIOXIDE 23.5 MMOL/L (24-32); TOTAL PROTEIN 6.7 G/DL (6.4-8.2); eCRCL 139 ML/MIN; eGFR > 90 ML/MIN
[2023-02-11] MEDS: K and/or MAG REPLACEMENT MC SCH ×2 (08:00→19:07)
[2023-02-11] MEDS ORDERED: carVEDilol 3.125mg tablet PO SCH (08:00)
[2023-02-11] MEDS: metoprolol tartrate 50mg tablet PO SCH (08:00)
[2023-02-11] MEDS: apixaban 5mg tablet PO SCH ×2 (08:34→19:33)
[2023-02-11] MEDS: thiamine 100mg tablet PO SCH (08:34)
[2023-02-11] MEDS: furosemide 20MG tablet PO SCH ×2 (08:35→19:33)
[2023-02-11] MEDS: docusate sod 100mg capsule PO SCH ×2 (08:35→19:33)
[2023-02-11] MEDS: multivitamins, therapeutics tablet PO SCH (08:35)
[2023-02-11] MEDS: folic acid 1mg tablet PO SCH (08:35)
[2023-02-11] MEDS: potassium Cl 20 mEq SR tablet PO SCH (08:37)
[2023-02-11] MEDS: ondansetron/PF 4mg/2ml inj IV PRN (08:43)
[2023-02-11] MEDS: budesonide 0.5mg/2ml UD nebule IH SCH ×2 (09:03→19:38)
[2023-02-11 09:05] VITALS: PULSE 139; RESP 16; O2SAT 98
[2023-02-11 09:10] VITALS: PULSE 128; RESP 16
--- NOTE | 2023-02-11 09:13 | NUR ---
CN received a call from Awa at Dr Gay's office ([phone]). States pt had a stress test on 11/22/22. Approx 8 days ago, increased carvedilol to 6.[address] Gay referred pt to [facility] on 02/07/23 for aortic valve stenosis. Pt also had CTs and carotid US on 10/29/22
--- NOTE | 2023-02-11 09:22 | NUR ---
Paged Dr Skinner for med clarification x2. Waiting answer.
[2023-02-11] MEDS ORDERED: diltiazem 5mg/ml 5ml inj. IV ONE (09:40)
[2023-02-11] MEDS: carvedilol 6.25mg tablet PO SCH ×2 (10:08→19:33)
--- NOTE | 2023-02-11 12:43 | NUR ---
RECEIVED REPORT FROM JC CHAVEZ ASSUMING CARE OF PT AOX4 08/10 CP NON RADIATING DENIES SOB WHILE AT REST ENDORSES SOB W EXCERTION AFIB NOTED ON MONITOR RATE OF 92 SA 97% RA PT SITTING ON BEDSIDE
[2023-02-11] MEDS: mag hydrox/Alum hydrox/simeth 30ml oral suspension PO PRN (13:47)
--- NOTE | 2023-02-11 15:52 | NUR ---
paged echo regarding echo not being done. echo was ordered 1899 yesterday
[2023-02-11] MEDS ORDERED: CARV6.253 PO (16:26)
[2023-02-11] MEDS: morphine 2 MG/ML inj. syringe IV PRN (18:12)
[2023-02-11 19:38] VITALS: PULSE 113; RESP 20; O2SAT 98
[2023-02-11 19:43] VITALS: PULSE 109; RESP 20
[2023-02-12] VITALS (8 sets, daily range): BP systolic 86–113; BP diastolic 48–82; PULSE 104–141; RESP 15–22; TEMP 97.4–97.6; O2SAT 97–99
[2023-02-12] MEDS ORDERED: aspirin 325mg tablet PO ONE (05:50)
[2023-02-12] MEDS: morphine 2 MG/ML inj. syringe IV PRN (06:08)
--- NOTE | 2023-02-12 06:17 | NUR ---
Patient reported chest pain 12/10. Repeat EKG ordered. Dr. Doshi stated there are new EKG changes and ordered a troponin. Hospitalist Dr. Sanz called. No new orders at this time.
[2023-02-12 06:21] LABS: BASOPHILS # (AUTO) 0.1 X10'3 (0-0.2); BASOPHILS % (AUTO) 0.8 % (0-1); EOSINOPHILS # (AUTO) 0.2 X10'3 (0-0.9); EOSINOPHILS % (AUTO) 2.8 % (0-6); HEMOGLOBIN 13.1 g/dl (14.0-17.9); LYMPHOCYTES # (AUTO) 1.7 X10'3 (1.1-4.8); LYMPHOCYTES % (AUTO) 25.3 % (21-51); MEAN CORPUSCULAR HGB CONC 32.7 g/dL (33.0-36.5); MEAN CORPUSCULAR VOLUME 91.8 FL (78-98); MEAN PLATELET VOLUME 10.1 FL (7.4-10.4); MONOCYTES # (AUTO) 0.5 X10'3 (0-0.9); MONOCYTES % (AUTO) 7.8 % (2-12); NEUTROPHILS # (AUTO) 4.4 X10'3 (1.8-7.7); NEUTROPHILS % (AUTO) 63.3 % (42-75); PLATELET COUNT 79 X10'3 (140-440); RED BLOOD COUNT 4.36 X10'6 (4.70-6.10); RED CELL DISTRIBUTION WIDTH 17.1 % (11.5-14.5); WHITE BLOOD COUNT 6.9 X10'3 (4.5-11.0)
[2023-02-12 06:43] LABS: ALANINE AMINOTRANSFERASE 58 U/L (12-78); ALBUMIN 3.9 G/DL (3.4-5.0); ALKALINE PHOSPHATASE 244 IU/L (46-116); ANION GAP 7 (8-16); ASPARTATE AMINO TRANSFERASE 59 U/L (10-37); BILIRUBIN,TOTAL 6.1 MG/DL (0.1-1.0); BLOOD UREA NITROGEN 24 MG/DL (7-18); BUN/CREATININE RATIO 25.3 (10.0-20.0); CALCIUM 9.4 MG/DL (8.5-10.1); CHLORIDE 97 MMOL/L (99-107); CREATININE 0.95 MG/DL (0.60-1.10); GLUCOSE 133 MG/DL (70-104); POTASSIUM 3.9 MMOL/L (3.5-5.1); SODIUM 131 MMOL/L (135-145); TOTAL CARBON DIOXIDE 26.6 MMOL/L (24-32); eCRCL 97 ML/MIN; eGFR 83 ML/MIN
[2023-02-12 06:46] LABS: ALBUMIN/GLOBULIN RATIO 1.2 (1.1-1.5); TOTAL PROTEIN 7.1 G/DL (6.4-8.2)
[2023-02-12] MEDS: K and/or MAG REPLACEMENT MC SCH ×2 (08:00→20:00)
[2023-02-12] MEDS: docusate sod 100mg capsule PO SCH ×3 (08:00→20:00)
[2023-02-12] MEDS: multivitamins, therapeutics tablet PO SCH (08:30)
[2023-02-12] MEDS: potassium Cl 20 mEq SR tablet PO SCH (08:30)
[2023-02-12] MEDS: apixaban 5mg tablet PO SCH (08:30)
[2023-02-12] MEDS: thiamine 100mg tablet PO SCH (08:30)
[2023-02-12] MEDS: carvedilol 6.25mg tablet PO SCH ×2 (08:31→20:11)
[2023-02-12] MEDS: furosemide 20MG tablet PO SCH ×2 (08:31→20:11)
[2023-02-12] MEDS: folic acid 1mg tablet PO SCH (08:31)
--- NOTE | 2023-02-12 08:39 | NUR ---
call placed to dr newell regarding pts high heart rate 130s-150s order received for 5mg iv push metoprolol now
[2023-02-12] MEDS ORDERED: metoprolol tartrate 1mg/ml inj IV ONE (08:40)
[2023-02-12] MEDS: budesonide 0.5mg/2ml UD nebule IH SCH ×2 (08:53→19:46)
[2023-02-12] MEDS: HYDROcodone/acetaminophen 10/325mg tab PO PRN ×2 (13:16→20:51)
--- NOTE | 2023-02-12 13:44 | NUR ---
PT REPORTS THAT HE DOES WANT TO DO THE SURGERY HERE AND WANTS TO SPEAK TO DR DODD, ATTEMPTED TO CALL THE DR BUT WAS UNABLE TO SPEAK TO HIM WILL PASS ON THE MESSAGE TO THE PRIMARY RN.
--- NOTE | 2023-02-12 15:11 | NUR ---
Patient in room ED 3. I have received report and had the opportunity to ask questions and assume patient care.
--- NOTE | 2023-02-12 15:21 | NUR ---
PT POSTITIVE MRSA NASAL SWAB. DR. WHEATLEY NOTIFIED.
--- NOTE | 2023-02-12 16:18 | NUR ---
PAGED DR. WHEATLEY REGARDING DR. DODD'S RECOMMENDATIONS AND THAT THE PATIENT IS CURRENTLY IN A.FIB WITH HR IN 140'S. PAGER ID: [phone] MESSAGE: [phone] JONNA LOAIZA. PATIENT ON THE FLOOR. CONSULTED AND WROTE RECOMMENDATIONS. PATIENT CURRENTLY AFIB 140S. IF YOU HAVE ANY QUESTIONS DR. DODD SAID TO CALL. THANK YOU. CHRISTINE CHAVEZ X [phone]
--- NOTE | 2023-02-12 16:18 | NUR ---
ORDERS TO STOP ELIQUIS PUT IN PER DR. DODD.
--- NOTE | 2023-02-12 19:13 | NUR ---
Page to Dr. Skinner
--- NOTE | 2023-02-12 19:33 | NUR ---
PAGER ID: [phone] MESSAGE: [phone] Sherif Mensah is in Rapid A Fib rate of 140 at rest. Will there be a cardiac drip? Erica CHAVEZ [phone]
[2023-02-12] MEDS ORDERED: diltiazem-NS 100mg/100ml 100 ML IV SCH (20:10)
[2023-02-13] VITALS (12 sets, daily range): BP systolic 89–145; BP diastolic 50–86; PULSE 75–128; RESP 11–20; TEMP 97.1–97.8; O2SAT 96–99
--- NOTE | 2023-02-13 06:47 | NUR ---
Patient report given, questions answered & plan of care reviewed with SCOTT Maldonado
[2023-02-13 07:39] LABS: BASOPHILS # (AUTO) 0.1 X10'3 (0-0.2); BASOPHILS % (AUTO) 0.7 % (0-1); EOSINOPHILS # (AUTO) 0.2 X10'3 (0-0.9); EOSINOPHILS % (AUTO) 2.1 % (0-6); HEMATOCRIT 39.1 % (42.0-52.0); HEMOGLOBIN 12.7 g/dl (14.0-17.9); LYMPHOCYTES # (AUTO) 1.7 X10'3 (1.1-4.8); LYMPHOCYTES % (AUTO) 20.6 % (21-51); MEAN CORPUSCULAR HEMOGLOBIN 30.2 PG (27.0-31.0); MEAN CORPUSCULAR HGB CONC 32.6 g/dL (33.0-36.5); MEAN CORPUSCULAR VOLUME 92.6 FL (78-98); MEAN PLATELET VOLUME 11.4 FL (7.4-10.4); MONOCYTES # (AUTO) 0.8 X10'3 (0-0.9); MONOCYTES % (AUTO) 9.4 % (2-12); NEUTROPHILS # (AUTO) 5.4 X10'3 (1.8-7.7); NEUTROPHILS % (AUTO) 67.2 % (42-75); PLATELET COUNT 84 X10'3 (140-440); RED BLOOD COUNT 4.22 X10'6 (4.70-6.10); RED CELL DISTRIBUTION WIDTH 16.7 % (11.5-14.5); WHITE BLOOD COUNT 8.1 X10'3 (4.5-11.0)
[2023-02-13 07:55] LABS: ALANINE AMINOTRANSFERASE 76 U/L (12-78); ALBUMIN 3.7 G/DL (3.4-5.0); ALKALINE PHOSPHATASE 244 IU/L (46-116); ANION GAP 10 (8-16); ASPARTATE AMINO TRANSFERASE 112 U/L (10-37); BILIRUBIN,TOTAL 5.1 MG/DL (0.1-1.0); BLOOD UREA NITROGEN 28 MG/DL (7-18); BUN/CREATININE RATIO 32.9 (10.0-20.0); CALCIUM 9.3 MG/DL (8.5-10.1); CHLORIDE 95 MMOL/L (99-107); CREATININE 0.85 MG/DL (0.60-1.10); GLUCOSE 112 MG/DL (70-104); POTASSIUM 4.3 MMOL/L (3.5-5.1); SODIUM 130 MMOL/L (135-145); TOTAL CARBON DIOXIDE 24.6 MMOL/L (24-32); eCRCL 108 ML/MIN; eGFR > 90 ML/MIN
[2023-02-13 07:57] LABS: ALBUMIN/GLOBULIN RATIO 1.2 (1.1-1.5); TOTAL PROTEIN 6.8 G/DL (6.4-8.2)
[2023-02-13] MEDS: carvedilol 6.25mg tablet PO SCH ×2 (08:00→20:00)
[2023-02-13] MEDS: docusate sod 100mg capsule PO SCH ×3 (08:00→20:00)
[2023-02-13] MEDS: folic acid 1mg tablet PO SCH (08:08)
[2023-02-13] MEDS: multivitamins, therapeutics tablet PO SCH (08:08)
[2023-02-13] MEDS: furosemide 20MG tablet PO SCH ×2 (08:08→20:00)
[2023-02-13] MEDS: thiamine 100mg tablet PO SCH ×2 (08:08→20:00)
[2023-02-13] MEDS: potassium Cl 20 mEq SR tablet PO SCH (08:08)
[2023-02-13] MEDS: K and/or MAG REPLACEMENT MC SCH ×2 (08:14→20:00)
[2023-02-13] MEDS: albuterol 2.5 MG/3 ML nebule NEB PRN ×2 (08:43→19:20)
[2023-02-13] MEDS: budesonide 0.5mg/2ml UD nebule IH SCH ×2 (08:43→19:20)
[2023-02-13] MEDS ORDERED: digoxin 250mcg/ml 2ml ampule IV ONE (10:25)
[2023-02-13 12:37] LABS: ALANINE AMINOTRANSFERASE 77 U/L (12-78); ALBUMIN 3.6 G/DL (3.4-5.0); ALKALINE PHOSPHATASE 240 IU/L (46-116); ASPARTATE AMINO TRANSFERASE 122 U/L (10-37); BILIRUBIN,DIRECT 2.4 MG/DL (0-0.3); BILIRUBIN,TOTAL 4.3 MG/DL (0.1-1.0)
[2023-02-13 12:42] LABS: ALBUMIN/GLOBULIN RATIO 1.2 (1.1-1.5); TOTAL PROTEIN 6.7 G/DL (6.4-8.2)
[2023-02-13] MEDS: morphine 2 MG/ML inj. syringe IV PRN (19:59)
[2023-02-13] MEDS: nicotine 14mg patch - 24hr TD SCH (20:02)
[2023-02-14] VITALS (9 sets, daily range): BP systolic 84–123; BP diastolic 48–79; PULSE 52–104; RESP 15–20; TEMP 97.2–98.8; O2SAT 90–100
[2023-02-14] MEDS: mag hydrox/Alum hydrox/simeth 30ml oral suspension PO PRN (03:33)
--- NOTE | 2023-02-14 06:35 | NUR ---
Problems reprioritized. Patient report given, questions answered & plan of care reviewed with Steffen CHAVEZ.
[2023-02-14 07:01] LABS: ALANINE AMINOTRANSFERASE 103 U/L (12-78); ALBUMIN 3.7 G/DL (3.4-5.0); ALKALINE PHOSPHATASE 252 IU/L (46-116); ANION GAP 9 (8-16); ASPARTATE AMINO TRANSFERASE 146 U/L (10-37); BLOOD UREA NITROGEN 28 MG/DL (7-18); BUN/CREATININE RATIO 28.9 (10.0-20.0); CHLORIDE 95 MMOL/L (99-107); CREATININE 0.97 MG/DL (0.60-1.10); GLUCOSE 102 MG/DL (70-104); MAGNESIUM 2.1 MG/DL (1.5-2.4); POTASSIUM 4.1 MMOL/L (3.5-5.1); SODIUM 131 MMOL/L (135-145); TOTAL CARBON DIOXIDE 27.2 MMOL/L (24-32); eCRCL 95 ML/MIN; eGFR 81 ML/MIN
[2023-02-14 07:02] LABS: ALBUMIN/GLOBULIN RATIO 1.2 (1.1-1.5); TOTAL PROTEIN 6.8 G/DL (6.4-8.2)
--- NOTE | 2023-02-14 07:03 | NUR ---
Patient in room PCU 3021. I have received report from COURTNEY CHAVEZ and had the opportunity to ask questions and assume patient care.
[2023-02-14] MEDS: nicotine 14mg patch - 24hr TD SCH (07:30)
[2023-02-14] MEDS: thiamine 100mg tablet PO SCH ×2 (07:30→20:12)
[2023-02-14] MEDS: multivitamins, therapeutics tablet PO SCH (07:30)
[2023-02-14] MEDS: furosemide 20MG tablet PO SCH ×2 (07:31→20:21)
[2023-02-14] MEDS: potassium Cl 20 mEq SR tablet PO SCH (07:31)
[2023-02-14 07:32] LABS: BASOPHILS # (AUTO) 0.1 X10'3 (0-0.2); BASOPHILS % (AUTO) 0.7 % (0-1); EOSINOPHILS # (AUTO) 0.1 X10'3 (0-0.9); EOSINOPHILS % (AUTO) 1.5 % (0-6); HEMATOCRIT 39.1 % (42.0-52.0); HEMOGLOBIN 12.8 g/dl (14.0-17.9); LYMPHOCYTES # (AUTO) 1.9 X10'3 (1.1-4.8); LYMPHOCYTES % (AUTO) 22.6 % (21-51); MEAN CORPUSCULAR HEMOGLOBIN 30.4 PG (27.0-31.0); MEAN CORPUSCULAR HGB CONC 32.8 g/dL (33.0-36.5); MEAN CORPUSCULAR VOLUME 92.5 FL (78-98); MEAN PLATELET VOLUME 10.5 FL (7.4-10.4); MONOCYTES % (AUTO) 11.8 % (2-12); NEUTROPHILS # (AUTO) 5.2 X10'3 (1.8-7.7); NEUTROPHILS % (AUTO) 63.4 % (42-75); PLATELET COUNT 89 X10'3 (140-440); RED BLOOD COUNT 4.23 X10'6 (4.70-6.10); RED CELL DISTRIBUTION WIDTH 16.9 % (11.5-14.5); WHITE BLOOD COUNT 8.2 X10'3 (4.5-11.0)
[2023-02-14] MEDS: carvedilol 6.25mg tablet PO SCH ×2 (07:32→20:12)
[2023-02-14] MEDS: docusate sod 100mg capsule PO SCH ×2 (07:32→20:00)
[2023-02-14] MEDS: folic acid 1mg tablet PO SCH (07:32)
[2023-02-14] MEDS: K and/or MAG REPLACEMENT MC SCH ×2 (08:00→20:00)
[2023-02-14] MEDS: budesonide 0.5mg/2ml UD nebule IH SCH ×2 (08:53→19:27)
[2023-02-14] MEDS: digoxin 250mcg (0.25mg) tablet PO SCH (10:12)
--- NOTE | 2023-02-14 18:21 | NUR ---
Problems reprioritized. Patient report given TO ISRAEL CHAVEZ, questions answered & plan of care reviewed with .
[2023-02-14] MEDS: enoxaparin 40mg/0.4ml syringe SUBCUT SCH (20:00)
[2023-02-14] MEDS: HYDROcodone/acetaminophen 10/325mg tab PO PRN (20:23)
[2023-02-15] VITALS (7 sets, daily range): BP systolic 97–120; BP diastolic 56–83; PULSE 60–131; RESP 16–24; TEMP 97.4–98.1; O2SAT 96–99
[2023-02-15] MEDS: HYDROcodone/acetaminophen 10/325mg tab PO PRN (05:45)
--- NOTE | 2023-02-15 06:21 | NUR ---
Pt's current IV infiltrated, nurse tried to place new IV and failed. Nurse to pass onto morning Nurse to place a new IV.
--- NOTE | 2023-02-15 06:50 | NUR ---
Problems reprioritized. Patient report given, questions answered & plan of care reviewed with Sangeetha CHAVEZ. Pt stable at shift change.
[2023-02-15 07:09] LABS: BASOPHILS # (AUTO) 0.1 X10'3 (0-0.2); BASOPHILS % (AUTO) 0.8 % (0-1); EOSINOPHILS # (AUTO) 0.1 X10'3 (0-0.9); EOSINOPHILS % (AUTO) 1.7 % (0-6); HEMOGLOBIN 12.9 g/dl (14.0-17.9); LYMPHOCYTES # (AUTO) 1.8 X10'3 (1.1-4.8); LYMPHOCYTES % (AUTO) 22.6 % (21-51); MEAN CORPUSCULAR HEMOGLOBIN 29.9 PG (27.0-31.0); MEAN CORPUSCULAR HGB CONC 32.3 g/dL (33.0-36.5); MEAN CORPUSCULAR VOLUME 92.5 FL (78-98); MEAN PLATELET VOLUME 10.4 FL (7.4-10.4); MONOCYTES % (AUTO) 11.9 % (2-12); NEUTROPHILS # (AUTO) 5.1 X10'3 (1.8-7.7); PLATELET COUNT 94 X10'3 (140-440); RED BLOOD COUNT 4.32 X10'6 (4.70-6.10); RED CELL DISTRIBUTION WIDTH 17.5 % (11.5-14.5)
[2023-02-15 07:19] LABS: ALANINE AMINOTRANSFERASE 125 U/L (12-78); ALBUMIN 3.6 G/DL (3.4-5.0); ALBUMIN/GLOBULIN RATIO 1.1 (1.1-1.5); ALKALINE PHOSPHATASE 261 IU/L (46-116); ANION GAP 11 (8-16); ASPARTATE AMINO TRANSFERASE 172 U/L (10-37); BILIRUBIN,TOTAL 3.9 MG/DL (0.1-1.0); BLOOD UREA NITROGEN 28 MG/DL (7-18); BUN/CREATININE RATIO 29.8 (10.0-20.0); CALCIUM 9.3 MG/DL (8.5-10.1); CHLORIDE 95 MMOL/L (99-107); CREATININE 0.94 MG/DL (0.60-1.10); GLUCOSE 113 MG/DL (70-104); POTASSIUM 4.2 MMOL/L (3.5-5.1); SODIUM 130 MMOL/L (135-145); TOTAL CARBON DIOXIDE 24.5 MMOL/L (24-32); TOTAL PROTEIN 6.8 G/DL (6.4-8.2); eCRCL 98 ML/MIN; eGFR 84 ML/MIN
[2023-02-15] MEDS: budesonide 0.5mg/2ml UD nebule IH SCH ×2 (07:42→20:27)
[2023-02-15] MEDS: nicotine 14mg patch - 24hr TD SCH ×2 (08:00→16:49)
[2023-02-15] MEDS: enoxaparin 40mg/0.4ml syringe SUBCUT SCH ×2 (08:00→20:39)
[2023-02-15] MEDS: docusate sod 100mg capsule PO SCH ×2 (08:00→20:00)
[2023-02-15] MEDS: K and/or MAG REPLACEMENT MC SCH ×2 (08:00→20:00)
[2023-02-15 08:57] LABS: ANISOCYTOSIS 1+; PLATELET ESTIMATE DECREASED; POIKILOCYTOSIS FEW; TEAR DROP CELLS FEW
[2023-02-15] MEDS: carvedilol 6.25mg tablet PO SCH ×2 (10:03→20:38)
[2023-02-15] MEDS: furosemide 20MG tablet PO SCH ×2 (10:03→20:39)
[2023-02-15] MEDS: multivitamins, therapeutics tablet PO SCH (10:03)
[2023-02-15] MEDS: folic acid 1mg tablet PO SCH (10:03)
[2023-02-15] MEDS: digoxin 250mcg (0.25mg) tablet PO SCH (10:04)
[2023-02-15] MEDS: thiamine 100mg tablet PO SCH ×2 (10:04→20:38)
[2023-02-15] MEDS: potassium Cl 20 mEq SR tablet PO SCH (10:04)
--- NOTE | 2023-02-15 15:24 | NUR ---
Initial: Pt admit DX afib w/ RVR, type II IN, acute CHF exacerbation, severe aortic stenosis, normocytic anemia, and hx drinks 10 alcoholic beverages per day 3 times/week per EMR. Receiving routine thiamine, folic acid, and MVI for etoh hx. On heart healthy diet no PO intake documentation 02/11 but ~% avg past 7 meals including 100% WB this AM per pt report during RD visit. Overall, meeting ~80% kcal and ~94% protein minimum estimated needs. Pt seen by RD at bedside; pt reports typically eats one meal/day at home is agreeable to chocolate Ensure Enlive WS to assist meeting needs-MD notified. LBM 02/15 per EMR. Will continue to follow. Rec: 1. continue heart healthy diet per MD 2. chocolate Ensure Enlive WS to assist meeting needs; pending physician verification in EMR 3. routine thiamine, folic acid, MVI for etoh hx 4. routine bowel care 5. daily scaled wt Addendum: 02/15/23 at [address] Amended: Links added.
[2023-02-15] MEDS: morphine 2 MG/ML inj. syringe IV PRN ×2 (16:46→20:40)
--- NOTE | 2023-02-15 18:31 | NUR ---
GAVE REPORT TO ISRAEL CHAVEZ.
--- NOTE | 2023-02-16 03:55 | NUR ---
pt c/o pain in his ankle this shift, PRN morphine given per orders x1. PRN medication was effective.
--- NOTE | 2023-02-16 06:41 | NUR ---
Patient in room PCU 3021. I have received report from brooks horta and had the opportunity to ask questions and assume patient care.
--- NOTE | 2023-02-16 06:59 | NUR ---
Problems reprioritized. Patient report given, questions answered & plan of care reviewed with Catherine CHAVEZ. Pt stable at shift change.
[2023-02-16] MEDS: multivitamins, therapeutics tablet PO SCH (08:47)
[2023-02-16] MEDS: potassium Cl 20 mEq SR tablet PO SCH (08:47)
[2023-02-16] MEDS: thiamine 100mg tablet PO SCH ×2 (08:47→19:52)
[2023-02-16] MEDS: carvedilol 6.25mg tablet PO SCH ×2 (08:47→19:52)
[2023-02-16] MEDS: docusate sod 100mg capsule PO SCH ×2 (08:47→20:00)
[2023-02-16] MEDS: folic acid 1mg tablet PO SCH (08:48)
[2023-02-16] MEDS: furosemide 20MG tablet PO SCH ×2 (08:51→19:53)
[2023-02-16] MEDS: digoxin 250mcg (0.25mg) tablet PO SCH (08:51)
[2023-02-16] MEDS: K and/or MAG REPLACEMENT MC SCH ×2 (08:53→20:00)
[2023-02-16] MEDS: morphine 2 MG/ML inj. syringe IV PRN ×3 (09:03→19:52)
[2023-02-16] MEDS: nicotine 14mg patch - 24hr TD SCH (09:06)
[2023-02-16 09:46] LABS: BASOPHILS # (AUTO) 0.1 X10'3 (0-0.2); EOSINOPHILS # (AUTO) 0.1 X10'3 (0-0.9); EOSINOPHILS % (AUTO) 1.8 % (0-6); HEMATOCRIT 39.1 % (42.0-52.0); HEMOGLOBIN 12.6 g/dl (14.0-17.9); LYMPHOCYTES # (AUTO) 1.2 X10'3 (1.1-4.8); LYMPHOCYTES % (AUTO) 19.7 % (21-51); MEAN CORPUSCULAR HEMOGLOBIN 29.8 PG (27.0-31.0); MEAN CORPUSCULAR HGB CONC 32.2 g/dL (33.0-36.5); MEAN CORPUSCULAR VOLUME 92.7 FL (78-98); MEAN PLATELET VOLUME 9.9 FL (7.4-10.4); MONOCYTES # (AUTO) 0.7 X10'3 (0-0.9); MONOCYTES % (AUTO) 10.3 % (2-12); NEUTROPHILS # (AUTO) 4.2 X10'3 (1.8-7.7); NEUTROPHILS % (AUTO) 67.2 % (42-75); PLATELET COUNT 94 X10'3 (140-440); RED BLOOD COUNT 4.22 X10'6 (4.70-6.10); RED CELL DISTRIBUTION WIDTH 17.3 % (11.5-14.5); WHITE BLOOD COUNT 6.3 X10'3 (4.5-11.0)
[2023-02-16 10:00] LABS: ALANINE AMINOTRANSFERASE 165 U/L (12-78); ALBUMIN 3.5 G/DL (3.4-5.0); ALKALINE PHOSPHATASE 255 IU/L (46-116); ANION GAP 6 (8-16); ASPARTATE AMINO TRANSFERASE 217 U/L (10-37); BILIRUBIN,DIRECT 2.2 MG/DL (0-0.3); BILIRUBIN,TOTAL 4.5 MG/DL (0.1-1.0); BLOOD UREA NITROGEN 28 MG/DL (7-18); BUN/CREATININE RATIO 32.6 (10.0-20.0); CALCIUM 9.1 MG/DL (8.5-10.1); CHLORIDE 95 MMOL/L (99-107); CREATININE 0.86 MG/DL (0.60-1.10); GLUCOSE 170 MG/DL (70-104); POTASSIUM 3.9 MMOL/L (3.5-5.1); SODIUM 129 MMOL/L (135-145); TOTAL CARBON DIOXIDE 27.6 MMOL/L (24-32); eCRCL 107 ML/MIN; eGFR > 90 ML/MIN
[2023-02-16 10:01] LABS: ALBUMIN/GLOBULIN RATIO 1.1 (1.1-1.5); TOTAL PROTEIN 6.6 G/DL (6.4-8.2)
[2023-02-16 10:33] VITALS: PULSE 73; RESP 19; TEMP 97.6; O2SAT 98
[2023-02-16] MEDS: enoxaparin 40mg/0.4ml syringe SUBCUT SCH (10:36)
[2023-02-16 11:31] VITALS: BP 100/65; PULSE 51; RESP 10; TEMP 97.1; O2SAT 97
--- NOTE | 2023-02-16 14:23 | NUR ---
paged dr newell re: PAGER ID: [phone] MESSAGE: andrew Steve. pt states 1 mg morphine is not working for his pain. can we increase to 2 mg? tamara [phone] vladislav )
[2023-02-16 18:00] VITALS: BP 98/49; PULSE 96; RESP 13; TEMP 98.1; O2SAT 98
--- NOTE | 2023-02-16 18:28 | NUR ---
Problems reprioritized. Patient report given, questions answered & plan of care reviewed with brooks horta.
[2023-02-16] MEDS: budesonide 0.5mg/2ml UD nebule IH SCH (19:29)
[2023-02-16 19:30] VITALS: BP 100/60; PULSE 82; RESP 18; O2SAT 98
[2023-02-16] MEDS: mupirocin 2% nasal ointment 1gm UD NS SCH (19:59)
[2023-02-16 22:00] VITALS: BP 93/39; PULSE 113; RESP 21; TEMP 97.5; O2SAT 96
[2023-02-17] VITALS (10 sets, daily range): BP systolic 90–153; BP diastolic 37–63; PULSE 66–93; RESP 13–18; TEMP 97.2–98.1; O2SAT 96–100
--- NOTE | 2023-02-17 00:15 | NUR ---
nurse spoke with Provider Dana regarding pt request for aspercream type topical to help with the pain management of his left ankle and for pain medication to help with pain management. Provider gave new orders for morphine 2mg IV Q4h PRN and Bengay cream Q4hrs as needed. NRBO.
[2023-02-17] MEDS: morphine 2 MG/ML inj. syringe IV PRN ×5 (00:44→23:56)
[2023-02-17] MEDS: methyl salicylate/menthol cream 57gm TP PRN ×2 (00:44→19:50)
--- NOTE | 2023-02-17 06:25 | NUR ---
Problems reprioritized. Patient report given, questions answered & plan of care reviewed with Kareen CHAVEZ. Pt stable at shift change.
[2023-02-17] MEDS: carvedilol 6.25mg tablet PO SCH ×2 (07:17→19:49)
[2023-02-17] MEDS: budesonide 0.5mg/2ml UD nebule IH SCH ×2 (07:25→19:46)
[2023-02-17 07:36] LABS: BASOPHILS % (AUTO) 0.6 % (0-1); EOSINOPHILS # (AUTO) 0.1 X10'3 (0-0.9); EOSINOPHILS % (AUTO) 2.4 % (0-6); HEMATOCRIT 38.1 % (42.0-52.0); HEMOGLOBIN 12.5 g/dl (14.0-17.9); LYMPHOCYTES # (AUTO) 1.4 X10'3 (1.1-4.8); LYMPHOCYTES % (AUTO) 23.5 % (21-51); MEAN CORPUSCULAR HEMOGLOBIN 30.3 PG (27.0-31.0); MEAN CORPUSCULAR HGB CONC 32.8 g/dL (33.0-36.5); MEAN CORPUSCULAR VOLUME 92.3 FL (78-98); MEAN PLATELET VOLUME 9.9 FL (7.4-10.4); MONOCYTES # (AUTO) 0.9 X10'3 (0-0.9); MONOCYTES % (AUTO) 14.6 % (2-12); NEUTROPHILS # (AUTO) 3.5 X10'3 (1.8-7.7); NEUTROPHILS % (AUTO) 58.9 % (42-75); PLATELET COUNT 91 X10'3 (140-440); RED BLOOD COUNT 4.12 X10'6 (4.70-6.10); RED CELL DISTRIBUTION WIDTH 17.3 % (11.5-14.5)
[2023-02-17] MEDS: nicotine 14mg patch - 24hr TD SCH (07:54)
[2023-02-17] MEDS: potassium Cl 20 mEq SR tablet PO SCH (07:54)
[2023-02-17] MEDS: furosemide 20MG tablet PO SCH (07:55)
[2023-02-17] MEDS: thiamine 100mg tablet PO SCH ×2 (07:55→19:49)
[2023-02-17] MEDS: folic acid 1mg tablet PO SCH (07:55)
[2023-02-17] MEDS: multivitamins, therapeutics tablet PO SCH (07:55)
[2023-02-17] MEDS: docusate sod 100mg capsule PO SCH ×2 (07:55→20:00)
[2023-02-17] MEDS: digoxin 250mcg (0.25mg) tablet PO SCH (07:56)
[2023-02-17] MEDS: mupirocin 2% nasal ointment 1gm UD NS SCH ×2 (07:57→19:49)
[2023-02-17] MEDS: K and/or MAG REPLACEMENT MC SCH ×2 (08:00→20:00)
[2023-02-17 08:40] LABS: BILIRUBIN,DIRECT 1.9 MG/DL (0-0.3)
[2023-02-17 08:52] LABS: ALANINE AMINOTRANSFERASE 149 U/L (12-78); ALBUMIN 3.5 G/DL (3.4-5.0); ALBUMIN/GLOBULIN RATIO 1.2 (1.1-1.5); ALKALINE PHOSPHATASE 265 IU/L (46-116); ANION GAP 10 (8-16); ASPARTATE AMINO TRANSFERASE 162 U/L (10-37); BILIRUBIN,TOTAL 3.5 MG/DL (0.1-1.0); BLOOD UREA NITROGEN 27 MG/DL (7-18); BUN/CREATININE RATIO 33.8 (10.0-20.0); CALCIUM 8.9 MG/DL (8.5-10.1); CHLORIDE 95 MMOL/L (99-107); DIGOXIN 0.7 NG/ML (0.9-1.9); GLUCOSE 91 MG/DL (70-104); SODIUM 130 MMOL/L (135-145); TOTAL CARBON DIOXIDE 25.3 MMOL/L (24-32); TOTAL PROTEIN 6.4 G/DL (6.4-8.2); eCRCL 115 ML/MIN; eGFR > 90 ML/MIN
--- NOTE | 2023-02-17 14:15 | NUR ---
during morphine administration 1 mg was highlighted in emar instead of 2 mg. emar shows 1 mg given however 2 mg was administered by assistant chief nursing officer rena perea as witnessed by myself. charge nurse and pharmacy was notified. there is no way to correct on emar so instructed by pharmacy to include comment under admin, which has been done.
--- NOTE | 2023-02-17 18:28 | NUR ---
Problems reprioritized. Patient report given, questions answered & plan of care reviewed with brooks horta.
--- NOTE | 2023-02-17 20:30 | NUR ---
pt c/o pain x2 this shift, PRN pain medication given and effective each time. Pt expressed his frustration at being in the hospital for the past 10 days and feeling like its a waiting game for him to get his procedure done. Nurse explained that the doctors wanted to have his ab work more stable especially his platelet count. Nurse also informed him that there is a possibility he might have the procedure on 02/18 and that the doctor wants him to be NPO tonight incase he get taken for surgery.
[2023-02-18] VITALS (8 sets, daily range): BP systolic 98–116; BP diastolic 42–54; PULSE 75–87; RESP 13–18; TEMP 97.3–98.7; O2SAT 96–99
--- NOTE | 2023-02-18 06:39 | NUR ---
Problems reprioritized. Patient report given, questions answered & plan of care reviewed with Clifton CHAVEZ. Pt stable at shift change.
[2023-02-18 07:16] LABS: BASOPHILS % (AUTO) 0.7 % (0-1); EOSINOPHILS # (AUTO) 0.1 X10'3 (0-0.9); EOSINOPHILS % (AUTO) 2.4 % (0-6); HEMATOCRIT 38.3 % (42.0-52.0); HEMOGLOBIN 12.5 g/dl (14.0-17.9); LYMPHOCYTES # (AUTO) 1.3 X10'3 (1.1-4.8); LYMPHOCYTES % (AUTO) 21.5 % (21-51); MEAN CORPUSCULAR HEMOGLOBIN 30.1 PG (27.0-31.0); MEAN CORPUSCULAR HGB CONC 32.7 g/dL (33.0-36.5); MEAN CORPUSCULAR VOLUME 92.1 FL (78-98); MEAN PLATELET VOLUME 10.3 FL (7.4-10.4); MONOCYTES # (AUTO) 0.9 X10'3 (0-0.9); MONOCYTES % (AUTO) 14.1 % (2-12); NEUTROPHILS # (AUTO) 3.7 X10'3 (1.8-7.7); NEUTROPHILS % (AUTO) 61.3 % (42-75); PLATELET COUNT 110 X10'3 (140-440); RED BLOOD COUNT 4.16 X10'6 (4.70-6.10); RED CELL DISTRIBUTION WIDTH 17.4 % (11.5-14.5); WHITE BLOOD COUNT 6.1 X10'3 (4.5-11.0)
[2023-02-18 07:40] LABS: ALANINE AMINOTRANSFERASE 117 U/L (12-78); ALBUMIN 3.4 G/DL (3.4-5.0); ALBUMIN/GLOBULIN RATIO 1.1 (1.1-1.5); ALKALINE PHOSPHATASE 272 IU/L (46-116); ANION GAP 10 (8-16); ASPARTATE AMINO TRANSFERASE 96 U/L (10-37); BILIRUBIN,TOTAL 2.9 MG/DL (0.1-1.0); BLOOD UREA NITROGEN 22 MG/DL (7-18); BUN/CREATININE RATIO 28.9 (10.0-20.0); CALCIUM 9.1 MG/DL (8.5-10.1); CHLORIDE 98 MMOL/L (99-107); CREATININE 0.76 MG/DL (0.60-1.10); GLUCOSE 103 MG/DL (70-104); SODIUM 133 MMOL/L (135-145); TOTAL CARBON DIOXIDE 25.1 MMOL/L (24-32); TOTAL PROTEIN 6.4 G/DL (6.4-8.2); eCRCL 121 ML/MIN; eGFR > 90 ML/MIN
[2023-02-18 07:46] LABS: BILIRUBIN,DIRECT 1.6 MG/DL (0-0.3); DIGOXIN 0.8 NG/ML (0.9-1.9)
[2023-02-18] MEDS: K and/or MAG REPLACEMENT MC SCH ×2 (08:00→20:00)
[2023-02-18] MEDS: mupirocin 2% nasal ointment 1gm UD NS SCH ×2 (08:00→20:00)
[2023-02-18] MEDS: digoxin 250mcg (0.25mg) tablet PO SCH (08:00)
[2023-02-18] MEDS: folic acid 1mg tablet PO SCH (08:00)
[2023-02-18] MEDS: docusate sod 100mg capsule PO SCH ×2 (08:00→20:23)
[2023-02-18] MEDS: potassium Cl 20 mEq SR tablet PO SCH (08:00)
[2023-02-18] MEDS: nicotine 14mg patch - 24hr TD SCH ×2 (08:00→11:02)
[2023-02-18] MEDS: multivitamins, therapeutics tablet PO SCH (08:00)
[2023-02-18] MEDS: thiamine 100mg tablet PO SCH ×2 (08:00→20:23)
[2023-02-18] MEDS: carvedilol 6.25mg tablet PO SCH ×2 (08:00→20:23)
[2023-02-18] MEDS: spironolactone 25 MG tablet PO SCH (08:30)
[2023-02-18] MEDS: morphine 2 MG/ML inj. syringe IV PRN ×4 (11:11→21:09)
[2023-02-18 12:05] LABS: % IRON SATURATION 15 % (11-46); FERRITIN 210 NG/ML (26-388); IRON 38 UG/DL (53-167); TOTAL IRON BINDING CAPACITY 260 UG/DL (259-388)
--- NOTE | 2023-02-18 15:51 | NUR ---
Student documentation: I have reviewed and agree with Pphysical assessments performed and documented by SN Kathi.
[2023-02-18] MEDS: budesonide 0.5mg/2ml UD nebule IH SCH (22:40)
[2023-02-19 02:00] VITALS: BP 102/45; PULSE 84; RESP 18; TEMP 98.8; O2SAT 95
[2023-02-19] MEDS: morphine 2 MG/ML inj. syringe IV PRN (05:35)
[2023-02-19] MEDS: methyl salicylate/menthol cream 57gm TP PRN (05:37)
[2023-02-19 06:00] VITALS: BP 104/54; PULSE 69; RESP 16; TEMP 96.9; O2SAT 96
--- NOTE | 2023-02-19 06:15 | NUR ---
Problems reprioritized. Patient report given to Clifton CHAVEZ questions answered & plan of care reviewed with .
[2023-02-19 07:32] LABS: BASOPHILS % (AUTO) 0.7 % (0-1); EOSINOPHILS # (AUTO) 0.1 X10'3 (0-0.9); EOSINOPHILS % (AUTO) 2.7 % (0-6); HEMATOCRIT 37.5 % (42.0-52.0); HEMOGLOBIN 12.1 g/dl (14.0-17.9); LYMPHOCYTES # (AUTO) 1.2 X10'3 (1.1-4.8); LYMPHOCYTES % (AUTO) 22.8 % (21-51); MEAN CORPUSCULAR HEMOGLOBIN 29.8 PG (27.0-31.0); MEAN CORPUSCULAR HGB CONC 32.2 g/dL (33.0-36.5); MEAN CORPUSCULAR VOLUME 92.6 FL (78-98); MEAN PLATELET VOLUME 9.9 FL (7.4-10.4); MONOCYTES # (AUTO) 0.7 X10'3 (0-0.9); MONOCYTES % (AUTO) 13.6 % (2-12); NEUTROPHILS # (AUTO) 3.3 X10'3 (1.8-7.7); NEUTROPHILS % (AUTO) 60.2 % (42-75); PLATELET COUNT 115 X10'3 (140-440); RED BLOOD COUNT 4.05 X10'6 (4.70-6.10); RED CELL DISTRIBUTION WIDTH 17.4 % (11.5-14.5); WHITE BLOOD COUNT 5.5 X10'3 (4.5-11.0)
[2023-02-19 07:44] LABS: ALANINE AMINOTRANSFERASE 101 U/L (12-78); ALBUMIN 3.5 G/DL (3.4-5.0); ALBUMIN/GLOBULIN RATIO 1.2 (1.1-1.5); ALKALINE PHOSPHATASE 257 IU/L (46-116); ANION GAP 8 (8-16); ASPARTATE AMINO TRANSFERASE 74 U/L (10-37); BILIRUBIN,TOTAL 2.9 MG/DL (0.1-1.0); BLOOD UREA NITROGEN 22 MG/DL (7-18); BUN/CREATININE RATIO 28.6 (10.0-20.0); CALCIUM 8.8 MG/DL (8.5-10.1); CHLORIDE 99 MMOL/L (99-107); CREATININE 0.77 MG/DL (0.60-1.10); GLUCOSE 98 MG/DL (70-104); POTASSIUM 3.9 MMOL/L (3.5-5.1); SODIUM 132 MMOL/L (135-145); TOTAL CARBON DIOXIDE 25.4 MMOL/L (24-32); TOTAL PROTEIN 6.5 G/DL (6.4-8.2); eCRCL 120 ML/MIN; eGFR > 90 ML/MIN
[2023-02-19] MEDS: K and/or MAG REPLACEMENT MC SCH (08:00)
[2023-02-19] MEDS: carvedilol 6.25mg tablet PO SCH (08:00)
[2023-02-19] MEDS: budesonide 0.5mg/2ml UD nebule IH SCH (08:03)
[2023-02-19 08:05] VITALS: PULSE 89; RESP 16; O2SAT 98
[2023-02-19 08:28] LABS: BILIRUBIN,DIRECT 1.6 MG/DL (0-0.3)
[2023-02-19] MEDS: spironolactone 25 MG tablet PO SCH (08:30)
[2023-02-19] MEDS: potassium Cl 20 mEq SR tablet PO SCH (08:40)
[2023-02-19] MEDS: thiamine 100mg tablet PO SCH (08:41)
[2023-02-19] MEDS: folic acid 1mg tablet PO SCH (08:41)
[2023-02-19] MEDS: digoxin 250mcg (0.25mg) tablet PO SCH (08:41)
[2023-02-19] MEDS: docusate sod 100mg capsule PO SCH (08:42)
[2023-02-19] MEDS: mupirocin 2% nasal ointment 1gm UD NS SCH (08:42)
[2023-02-19] MEDS: multivitamins, therapeutics tablet PO SCH (08:42)
[2023-02-19] MEDS: nicotine 14mg patch - 24hr TD SCH (08:42)
[2023-02-19 12:08] VITALS: BP 106/65; PULSE 70; RESP 14; TEMP 97.8; O2SAT 98
[2023-02-19 14:55] LABS: ANTINUCLEAR ANTIBODIES Negative (Negative); HBSAG SCREEN Negative (Negative); HEPATITIS C VIRUS ANTIBODY Non Reactive (Non Reactive)
[2023-02-19] MEDS ORDERED: SPIR25TA PO (16:00)
[2023-02-19] MEDS ORDERED: DIGO250T4 PO (16:00)
[2023-02-19] MEDS ORDERED: APIX5TAB3 PO (16:01)
== END 2023-02-19 16:20 | disposition home or self-care (01) | DRG 281 ==
LOC: ER 17:05 → ED HOLD 19:35 → EDBEDREQ 02-12 14:27 → PCU 3S 02-12 15:33
PROVIDERS: ADMIT Internal Medicine; ATTEND Family Medicine
PROC: B32T1ZZ Computerized Tomography (CT Scan) of Left Pulmonary Artery using Low Osmolar Contrast (ICD-10-PCS; principal; 2023-02-11)
PROC: B3201ZZ Computerized Tomography (CT Scan) of Thoracic Aorta using Low Osmolar Contrast (ICD-10-PCS; 2023-02-11)
PROC: B32S1ZZ Computerized Tomography (CT Scan) of Right Pulmonary Artery using Low Osmolar Contrast (ICD-10-PCS; 2023-02-11)
DX: I48.0 Paroxysmal atrial fibrillation (principal); I21.A1 Myocardial infarction type 2; E87.1 Hypo-osmolality and hyponatremia; Z68.41 Body mass index [BMI] 40.0-44.9, adult; K76.6 Portal hypertension; F10.10 Alcohol abuse, uncomplicated; E66.01 Morbid (severe) obesity due to excess calories; I50.9 Heart failure, unspecified; D64.9 Anemia, unspecified; K70.31 Alcoholic cirrhosis of liver with ascites; K82.4 Cholesterolosis of gallbladder; I20.9 Angina pectoris, unspecified; D69.6 Thrombocytopenia, unspecified; I35.0 Nonrheumatic aortic (valve) stenosis; Z79.899 Other long term (current) drug therapy; Z87.891 Personal history of nicotine dependence
CPT/HCPCS: 36415; 71045; 71275; 76700; 80048; 80053; 80076; 80162; 82728; 83540; 83550; 83735; 83880; 84484; 85008; 85025; 85610; 85730; 86038; 86803; 87081; 87340; 87522; 93005; 93306; 94640; 94760; 99285; A6258; G0378; J1160; J1650; J2270; J2405; J3475; J3490; J7030; Q9967

== ENCOUNTER 2023-03-23 12:07 | Inpatient (IN) | payer OTHER ==
[~2023-03-23] VITALS: Ht 175.3 cm; Wt 122.0 kg
[~2023-03-23 12:07] MED LIST changes: +APIX5TAB3 PO; -CARV3.123 PO; +CARV6.253 PO; +DIGO250T4 PO; +LIDOcaine 2% (20 mg/ml) 5ml cardiac syringe ONE; +NORepinephrine bitart. inj. IV ONE; -POTA-366 PO; +SPIR25TA PO; +albumin (human) 25% 100 ML IV solution IV ONE; +aminocaproic acid 250 MG/1 ML inj. ONE; +calcium chloride 100 MG/1 ML inj IV ONE; +heparin 1,000 units/ml 10ml inj ONE; +heparin 10,000 units/1 ML INJ ONE; +magnesium sulf 1 GM/2 ML ONE; +mannitol 12.5gm/50mL VIAL IV ONE; +methylPREDNISolone sod. succ. 500mg inj ONE; +potassium acetate 2 mEq/1ml inj. IV ONE; +sodium bicarbonate (8.4%) 1 mEq/ml syringe ONE
[2023-03-23 12:32] LABS: EOSINOPHILS # (AUTO) 0.1 X10'3 (0-0.9); EOSINOPHILS % (AUTO) 1.6 % (0-6); HEMATOCRIT 38.1 % (42.0-52.0); HEMOGLOBIN 12.3 g/dl (14.0-17.9); LYMPHOCYTES # (AUTO) 0.9 X10'3 (1.1-4.8); MEAN CORPUSCULAR HEMOGLOBIN 28.7 PG (27.0-31.0); MEAN CORPUSCULAR HGB CONC 32.4 g/dL (33.0-36.5); MEAN CORPUSCULAR VOLUME 88.5 FL (78-98); MEAN PLATELET VOLUME 10.6 FL (7.4-10.4); MONOCYTES # (AUTO) 0.4 X10'3 (0-0.9); MONOCYTES % (AUTO) 8.1 % (2-12); NEUTROPHILS # (AUTO) 3.4 X10'3 (1.8-7.7); NEUTROPHILS % (AUTO) 70.3 % (42-75); PLATELET COUNT 108 X10'3 (140-440); RED BLOOD COUNT 4.31 X10'6 (4.70-6.10); RED CELL DISTRIBUTION WIDTH 14.7 % (11.5-14.5); WHITE BLOOD COUNT 4.8 X10'3 (4.5-11.0)
[2023-03-23 12:45] LABS: ALANINE AMINOTRANSFERASE 12 U/L (12-78); ALBUMIN 3.7 G/DL (3.4-5.0); ALBUMIN/GLOBULIN RATIO 1.3 (1.1-1.5); ALKALINE PHOSPHATASE 201 IU/L (46-116); ANION GAP 12 (8-16); ASPARTATE AMINO TRANSFERASE 19 U/L (10-37); BILIRUBIN,TOTAL 2.2 MG/DL (0.1-1.0); BLOOD UREA NITROGEN 12 MG/DL (7-18); BUN/CREATININE RATIO 12.9 (10.0-20.0); CALCIUM 9.2 MG/DL (8.5-10.1); CHLORIDE 103 MMOL/L (99-107); CREATININE 0.93 MG/DL (0.60-1.10); GLUCOSE 113 MG/DL (70-104); POTASSIUM 3.5 MMOL/L (3.5-5.1); SODIUM 140 MMOL/L (135-145); TOTAL CARBON DIOXIDE 25.4 MMOL/L (24-32); TOTAL PROTEIN 6.5 G/DL (6.4-8.2); eCRCL 93 ML/MIN; eGFR 85 ML/MIN
[2023-03-23 12:54] LABS: ELLIPTOCYTES FEW; PLATELET ESTIMATE DECREASED; PRO BRAIN NATRIURETIC PEPTIDE 10401 PG/ML (0-125)
[2023-03-23 12:55] LABS: LARGE PLATELETS FEW; SCHISTOCYTES FEW; TEAR DROP CELLS FEW
[2023-03-23 13:38] LABS: APTT 29 SECONDS (22-32); INR 1.2 INR
[2023-03-23 13:51] LABS: ETHANOL < 10 MG/DL (<10)
[2023-03-23] MEDS ORDERED: mag hydrox/Alum hydrox/simeth 30ml oral suspension PO PRN (14:35)
[2023-03-23] MEDS ORDERED: normal saline 1000ml 1,000 ML IV SCH (14:35)
[2023-03-23] MEDS ORDERED: magnesium 4gm in 100ml NS 100 ML IV PRN (14:35)
[2023-03-23] MEDS ORDERED: magnesium hydroxide 30ml (MOM) UD suspension PO PRN (14:35)
[2023-03-23] MEDS ORDERED: acetaminophen 325mg tablet PO PRN (14:35)
[2023-03-23] MEDS ORDERED: magnesium 2GM in 50ml NS 50 ML IV PRN (14:35)
[2023-03-23] MEDS ORDERED: potassium Cl 40MEQ/1/2NS 520ml 520 ML IV PRN (14:35)
[2023-03-23] MEDS ORDERED: potassium Cl 20 mEq SR tablet PO PRN (14:35)
[2023-03-23] MEDS ORDERED: magnesium Cl slow-release 64mg tablet PO PRN (14:35)
[2023-03-23] MEDS ORDERED: ondansetron/PF 4mg/2ml inj IV PRN (14:35)
[2023-03-23] MEDS ORDERED: diphenhydrAMINE 25mg capsule PO PRN (14:35)
[2023-03-23] MEDS ORDERED: HYDROcodone/acetaminophen 5mg/325mg tablet PO PRN (14:35)
[2023-03-23 14:44] LABS: URINE AMPHETAMINE SCREEN NEGATIVE (Neg); URINE BARBITUATE SCREEN NEGATIVE (Neg); URINE BENZODIAZEPINES SCREEN NEGATIVE (Neg); URINE CANNABINOID SCREEN POSITIVE (Neg); URINE COCAINE SCREEN NEGATIVE (Neg); URINE METHADONE SCREEN NEGATIVE (Neg); URINE OPIATE SCREEN POSITIVE (Neg); URINE PHENCYCLIDINE SCREEN NEGATIVE (Neg)
[2023-03-23] MEDS: silver sulfadiazine cream 400gm jar TP SCH (15:54)
[2023-03-23] MEDS: HYDROcodone/acetaminophen 10/325mg tab PO PRN (15:55)
[2023-03-23] MEDS: ceFAZolin/D5W- 1GM premix 50 ML IV SCH (15:56)
[2023-03-23] MEDS: furosemide 20 MG/2 ML vial IV SCH (17:19)
[2023-03-23 18:03] VITALS: PULSE 78; RESP 15; O2SAT 100
[2023-03-23] MEDS ORDERED: FURO40TA4 PO (18:06)
[2023-03-23] MEDS ORDERED: CELE-127 PO (18:06)
[2023-03-23] MEDS ORDERED: SPIR25TA5 PO (18:06)
[2023-03-23] MEDS ORDERED: DIGO250T2 PO (18:06)
[2023-03-23] MEDS ORDERED: POTA-366 PO (18:06)
[2023-03-23] MEDS ORDERED: RIVA20TA PO (18:06)
[2023-03-23] MEDS: K and/or MAG REPLACEMENT MC SCH (20:00)
[2023-03-23] MEDS ORDERED: nicotine 21mg patch - 24 hr TD ONE (20:10)
[2023-03-23] MEDS: docusate sod 100mg capsule PO SCH (20:42)
[2023-03-23] MEDS: heparin, porcine 5000 units/ml vial SQ SCH (20:42)
[2023-03-23] MEDS: carvedilol 6.25mg tablet PO SCH (20:42)
[2023-03-23 21:27] VITALS: PULSE 84; RESP 18; O2SAT 98
[2023-03-23] MEDS: albuterol 2.5 MG/3 ML nebule NEB SCH (21:27)
[2023-03-23] MEDS: budesonide 0.5mg/2ml UD nebule IH SCH (21:27)
[2023-03-23 21:40] VITALS: PULSE 71; RESP 16
[2023-03-24] MEDS: ceFAZolin/D5W- 1GM premix 50 ML IV SCH ×3 (00:53→16:49)
[2023-03-24] MEDS: HYDROcodone/acetaminophen 10/325mg tab PO PRN ×4 (01:15→21:43)
[2023-03-24] MEDS: albuterol 2.5 MG/3 ML nebule NEB SCH ×4 (02:39→21:00)
[2023-03-24 06:05] LABS: BASOPHILS % (AUTO) 0.8 % (0-1); EOSINOPHILS # (AUTO) 0.1 X10'3 (0-0.9); EOSINOPHILS % (AUTO) 2.8 % (0-6); HEMATOCRIT 33.3 % (42.0-52.0); HEMOGLOBIN 10.8 g/dl (14.0-17.9); LYMPHOCYTES # (AUTO) 1.3 X10'3 (1.1-4.8); LYMPHOCYTES % (AUTO) 29.4 % (21-51); MEAN CORPUSCULAR HEMOGLOBIN 28.7 PG (27.0-31.0); MEAN CORPUSCULAR HGB CONC 32.5 g/dL (33.0-36.5); MEAN CORPUSCULAR VOLUME 88.2 FL (78-98); MEAN PLATELET VOLUME 10.6 FL (7.4-10.4); MONOCYTES # (AUTO) 0.3 X10'3 (0-0.9); MONOCYTES % (AUTO) 7.3 % (2-12); NEUTROPHILS # (AUTO) 2.6 X10'3 (1.8-7.7); NEUTROPHILS % (AUTO) 59.7 % (42-75); PLATELET COUNT 90 X10'3 (140-440); RED BLOOD COUNT 3.77 X10'6 (4.70-6.10); RED CELL DISTRIBUTION WIDTH 15.1 % (11.5-14.5); WHITE BLOOD COUNT 4.4 X10'3 (4.5-11.0)
[2023-03-24 06:26] LABS: ALANINE AMINOTRANSFERASE 13 U/L (12-78); ALBUMIN 3.2 G/DL (3.4-5.0); ALBUMIN/GLOBULIN RATIO 1.3 (1.1-1.5); ALKALINE PHOSPHATASE 168 IU/L (46-116); ANION GAP 7 (8-16); ASPARTATE AMINO TRANSFERASE 17 U/L (10-37); BILIRUBIN,TOTAL 1.7 MG/DL (0.1-1.0); BLOOD UREA NITROGEN 13 MG/DL (7-18); BUN/CREATININE RATIO 15.1 (10.0-20.0); CALCIUM 8.6 MG/DL (8.5-10.1); CHLORIDE 103 MMOL/L (99-107); CREATININE 0.86 MG/DL (0.60-1.10); GLUCOSE 92 MG/DL (70-104); POTASSIUM 3.2 MMOL/L (3.5-5.1); SODIUM 137 MMOL/L (135-145); TOTAL CARBON DIOXIDE 27.2 MMOL/L (24-32); TOTAL PROTEIN 5.7 G/DL (6.4-8.2); eCRCL 100 ML/MIN; eGFR > 90 ML/MIN
[2023-03-24 06:59] LABS: LARGE PLATELETS FEW; PLATELET ESTIMATE DECREASED
[2023-03-24] MEDS: furosemide 20 MG/2 ML vial IV SCH ×3 (07:14→19:32)
[2023-03-24] MEDS: morphine 2 MG/ML inj. syringe IV PRN (07:15)
[2023-03-24] MEDS: potassium Cl 20 mEq SR tablet PO PRN ×3 (07:22→17:14)
[2023-03-24] MEDS: K and/or MAG REPLACEMENT MC SCH ×2 (07:23→20:00)
[2023-03-24] MEDS ORDERED: ALBUTEROL INH SCH (08:00)
[2023-03-24] MEDS: heparin, porcine 5000 units/ml vial SQ SCH ×2 (08:00→20:00)
[2023-03-24] MEDS: docusate sod 100mg capsule PO SCH ×2 (08:00→19:30)
[2023-03-24] MEDS: silver sulfadiazine cream 400gm jar TP SCH (08:38)
[2023-03-24] MEDS: thiamine 100mg tablet PO SCH (08:41)
[2023-03-24] MEDS: multivitamins, therapeutics tablet PO SCH (08:41)
[2023-03-24] MEDS: carvedilol 6.25mg tablet PO SCH ×2 (08:43→19:30)
[2023-03-24] MEDS: budesonide 0.5mg/2ml UD nebule IH SCH ×2 (09:00→21:00)
[2023-03-24 09:12] VITALS: BP 112/62; PULSE 84; RESP 13; O2SAT 98
[2023-03-24] MEDS: nicotine 21mg patch - 24 hr TD SCH (11:25)
[2023-03-24 18:00] VITALS: BP 100/56; PULSE 88; RESP 20; TEMP 97.6; O2SAT 94
[2023-03-24 20:00] VITALS: RESP 20; O2SAT 94
[2023-03-24 20:30] VITALS: PULSE 86; RESP 16; O2SAT 98
[2023-03-24 22:00] VITALS: BP 102/51; PULSE 68; RESP 16; TEMP 97.5; O2SAT 94
[2023-03-25] VITALS (10 sets, daily range): BP systolic 97–112; BP diastolic 52–61; PULSE 70–126; RESP 14–20; TEMP 97–98.1; O2SAT 95–100
[2023-03-25] MEDS: ceFAZolin/D5W- 1GM premix 50 ML IV SCH ×4 (00:09→23:53)
[2023-03-25] MEDS: HYDROcodone/acetaminophen 10/325mg tab PO PRN ×4 (00:17→19:36)
[2023-03-25] MEDS: albuterol 2.5 MG/3 ML nebule NEB SCH ×4 (03:00→20:48)
[2023-03-25] MEDS: docusate sod 100mg capsule PO SCH ×2 (07:13→19:23)
[2023-03-25] MEDS: furosemide 20 MG/2 ML vial IV SCH ×2 (07:13→19:22)
[2023-03-25] MEDS: multivitamins, therapeutics tablet PO SCH (07:13)
[2023-03-25] MEDS: thiamine 100mg tablet PO SCH (07:13)
[2023-03-25] MEDS: carvedilol 6.25mg tablet PO SCH ×2 (07:13→19:22)
[2023-03-25] MEDS: nicotine 21mg patch - 24 hr TD SCH (07:14)
[2023-03-25] MEDS: silver sulfadiazine cream 400gm jar TP SCH (07:15)
[2023-03-25 07:24] LABS: EOSINOPHILS # (AUTO) 0.2 X10'3 (0-0.9); HEMOGLOBIN 11.7 g/dl (14.0-17.9); LYMPHOCYTES # (AUTO) 1.2 X10'3 (1.1-4.8); LYMPHOCYTES % (AUTO) 29.4 % (21-51); MEAN CORPUSCULAR HEMOGLOBIN 28.9 PG (27.0-31.0); MEAN CORPUSCULAR HGB CONC 32.6 g/dL (33.0-36.5); MEAN CORPUSCULAR VOLUME 88.7 FL (78-98); MEAN PLATELET VOLUME 10.8 FL (7.4-10.4); MONOCYTES # (AUTO) 0.3 X10'3 (0-0.9); MONOCYTES % (AUTO) 8.1 % (2-12); NEUTROPHILS # (AUTO) 2.4 X10'3 (1.8-7.7); NEUTROPHILS % (AUTO) 57.5 % (42-75); PLATELET COUNT 88 X10'3 (140-440); RED BLOOD COUNT 4.06 X10'6 (4.70-6.10); RED CELL DISTRIBUTION WIDTH 14.5 % (11.5-14.5); WHITE BLOOD COUNT 4.1 X10'3 (4.5-11.0)
[2023-03-25 07:53] LABS: ALANINE AMINOTRANSFERASE 13 U/L (12-78); ALBUMIN 3.4 G/DL (3.4-5.0); ALBUMIN/GLOBULIN RATIO 1.3 (1.1-1.5); ALKALINE PHOSPHATASE 183 IU/L (46-116); ANION GAP 6 (8-16); ASPARTATE AMINO TRANSFERASE 20 U/L (10-37); BILIRUBIN,TOTAL 1.6 MG/DL (0.1-1.0); BLOOD UREA NITROGEN 15 MG/DL (7-18); CALCIUM 9.1 MG/DL (8.5-10.1); CHLORIDE 102 MMOL/L (99-107); CREATININE 0.88 MG/DL (0.60-1.10); GLUCOSE 105 MG/DL (70-104); POTASSIUM 4.2 MMOL/L (3.5-5.1); SODIUM 135 MMOL/L (135-145); TOTAL PROTEIN 6.1 G/DL (6.4-8.2); eCRCL 98 ML/MIN; eGFR > 90 ML/MIN
[2023-03-25] MEDS: heparin, porcine 5000 units/ml vial SQ SCH ×2 (08:00→18:55)
[2023-03-25] MEDS: K and/or MAG REPLACEMENT MC SCH ×2 (08:00→19:20)
[2023-03-25] MEDS: budesonide 0.5mg/2ml UD nebule IH SCH ×2 (08:09→20:48)
[2023-03-25] MEDS: morphine 2 MG/ML inj. syringe IV PRN ×3 (10:49→23:53)
[2023-03-25] MEDS: JUVEN Smoothie Arginine/Glut./Ca2+Bmb (Juven 19.3pkt) 240ml cup PO SCH (17:30)
[2023-03-26] VITALS (8 sets, daily range): BP systolic 87–124; BP diastolic 44–81; PULSE 74–111; RESP 12–20; TEMP 97.7–98.9; O2SAT 94–100
[2023-03-26] MEDS: albuterol 2.5 MG/3 ML nebule NEB SCH ×4 (03:00→20:00)
[2023-03-26] MEDS: JUVEN Smoothie Arginine/Glut./Ca2+Bmb (Juven 19.3pkt) 240ml cup PO SCH ×2 (07:30→17:59)
[2023-03-26] MEDS: ceFAZolin/D5W- 1GM premix 50 ML IV SCH ×3 (07:40→23:31)
[2023-03-26] MEDS: multivitamins, therapeutics tablet PO SCH (07:40)
[2023-03-26] MEDS: carvedilol 6.25mg tablet PO SCH ×2 (07:40→19:37)
[2023-03-26] MEDS: HYDROcodone/acetaminophen 10/325mg tab PO PRN (07:41)
[2023-03-26] MEDS: thiamine 100mg tablet PO SCH (07:41)
[2023-03-26] MEDS: nicotine 21mg patch - 24 hr TD SCH (07:42)
[2023-03-26] MEDS: furosemide 20 MG/2 ML vial IV SCH ×2 (07:42→19:38)
[2023-03-26] MEDS: heparin, porcine 5000 units/ml vial SQ SCH (07:43)
[2023-03-26] MEDS: docusate sod 100mg capsule PO SCH ×2 (07:43→20:00)
[2023-03-26] MEDS: silver sulfadiazine cream 400gm jar TP SCH (07:43)
[2023-03-26 07:46] LABS: BASOPHILS % (AUTO) 0.6 % (0-1); EOSINOPHILS # (AUTO) 0.2 X10'3 (0-0.9); EOSINOPHILS % (AUTO) 3.5 % (0-6); HEMATOCRIT 35.7 % (42.0-52.0); HEMOGLOBIN 11.6 g/dl (14.0-17.9); MEAN CORPUSCULAR HEMOGLOBIN 28.7 PG (27.0-31.0); MEAN CORPUSCULAR HGB CONC 32.4 g/dL (33.0-36.5); MEAN CORPUSCULAR VOLUME 88.5 FL (78-98); MEAN PLATELET VOLUME 10.6 FL (7.4-10.4); MONOCYTES # (AUTO) 0.4 X10'3 (0-0.9); MONOCYTES % (AUTO) 8.4 % (2-12); NEUTROPHILS # (AUTO) 2.9 X10'3 (1.8-7.7); NEUTROPHILS % (AUTO) 65.5 % (42-75); PLATELET COUNT 84 X10'3 (140-440); RED BLOOD COUNT 4.03 X10'6 (4.70-6.10); RED CELL DISTRIBUTION WIDTH 14.9 % (11.5-14.5); WHITE BLOOD COUNT 4.4 X10'3 (4.5-11.0)
[2023-03-26] MEDS: K and/or MAG REPLACEMENT MC SCH ×2 (08:00→20:00)
[2023-03-26 08:12] LABS: ALANINE AMINOTRANSFERASE 12 U/L (12-78); ALBUMIN 3.4 G/DL (3.4-5.0); ALBUMIN/GLOBULIN RATIO 1.3 (1.1-1.5); ALKALINE PHOSPHATASE 190 IU/L (46-116); ANION GAP 8 (8-16); ASPARTATE AMINO TRANSFERASE 21 U/L (10-37); BILIRUBIN,TOTAL 1.6 MG/DL (0.1-1.0); BLOOD UREA NITROGEN 16 MG/DL (7-18); BUN/CREATININE RATIO 19.8 (10.0-20.0); CALCIUM 9.2 MG/DL (8.5-10.1); CHLORIDE 102 MMOL/L (99-107); CREATININE 0.81 MG/DL (0.60-1.10); GLUCOSE 91 MG/DL (70-104); POTASSIUM 4.1 MMOL/L (3.5-5.1); SODIUM 136 MMOL/L (135-145); TOTAL CARBON DIOXIDE 26.1 MMOL/L (24-32); eCRCL 107 ML/MIN; eGFR > 90 ML/MIN
[2023-03-26] MEDS: budesonide 0.5mg/2ml UD nebule IH SCH ×2 (09:00→20:00)
[2023-03-26] MEDS: mupirocin 2% ointment 22GM TP SCH (11:45)
[2023-03-26] MEDS: folic acid 1mg tablet PO SCH (13:38)
[2023-03-26] MEDS: PYRIDOXINE HCL (VITAMIN B6) 250 MG TABLET PO SCH (13:38)
[2023-03-26] MEDS: morphine 2 MG/ML inj. syringe IV PRN (23:31)
[2023-03-27] VITALS (9 sets, daily range): BP systolic 96–117; BP diastolic 47–76; PULSE 75–113; RESP 14–18; TEMP 97.5–100; O2SAT 95–100
[2023-03-27] MEDS: albuterol 2.5 MG/3 ML nebule NEB SCH ×4 (02:41→21:00)
[2023-03-27] MEDS: morphine 2 MG/ML inj. syringe IV PRN ×6 (03:54→21:12)
[2023-03-27 06:03] LABS: EOSINOPHILS # (AUTO) 0.1 X10'3 (0-0.9); EOSINOPHILS % (AUTO) 2.7 % (0-6); HEMATOCRIT 32.9 % (42.0-52.0); HEMOGLOBIN 10.9 g/dl (14.0-17.9); LYMPHOCYTES # (AUTO) 1.1 X10'3 (1.1-4.8); LYMPHOCYTES % (AUTO) 23.9 % (21-51); MEAN CORPUSCULAR HEMOGLOBIN 29.2 PG (27.0-31.0); MEAN CORPUSCULAR HGB CONC 33.1 g/dL (33.0-36.5); MEAN CORPUSCULAR VOLUME 88.3 FL (78-98); MEAN PLATELET VOLUME 11.1 FL (7.4-10.4); MONOCYTES # (AUTO) 0.5 X10'3 (0-0.9); MONOCYTES % (AUTO) 10.3 % (2-12); NEUTROPHILS # (AUTO) 2.8 X10'3 (1.8-7.7); NEUTROPHILS % (AUTO) 62.1 % (42-75); PLATELET COUNT 93 X10'3 (140-440); RED BLOOD COUNT 3.73 X10'6 (4.70-6.10); WHITE BLOOD COUNT 4.6 X10'3 (4.5-11.0)
[2023-03-27 06:19] LABS: ALANINE AMINOTRANSFERASE 10 U/L (12-78); ALBUMIN 3.3 G/DL (3.4-5.0); ALBUMIN/GLOBULIN RATIO 1.3 (1.1-1.5); ALKALINE PHOSPHATASE 182 IU/L (46-116); ANION GAP 7 (8-16); ASPARTATE AMINO TRANSFERASE 19 U/L (10-37); BILIRUBIN,TOTAL 1.6 MG/DL (0.1-1.0); BLOOD UREA NITROGEN 18 MG/DL (7-18); BUN/CREATININE RATIO 21.7 (10.0-20.0); CALCIUM 8.8 MG/DL (8.5-10.1); CHLORIDE 102 MMOL/L (99-107); CREATININE 0.83 MG/DL (0.60-1.10); GLUCOSE 92 MG/DL (70-104); POTASSIUM 3.9 MMOL/L (3.5-5.1); SODIUM 136 MMOL/L (135-145); TOTAL PROTEIN 5.8 G/DL (6.4-8.2); eCRCL 104 ML/MIN; eGFR > 90 ML/MIN
[2023-03-27 07:15] LABS: LARGE PLATELETS FEW; PLATELET ESTIMATE DECREASED; POLYCHROMASIA FEW
[2023-03-27 07:17] LABS: BURR CELLS 1+; ELLIPTOCYTES FEW; SCHISTOCYTES FEW
[2023-03-27] MEDS: JUVEN Smoothie Arginine/Glut./Ca2+Bmb (Juven 19.3pkt) 240ml cup PO SCH ×2 (07:30→18:06)
[2023-03-27] MEDS: budesonide 0.5mg/2ml UD nebule IH SCH ×2 (07:49→21:00)
[2023-03-27] MEDS: silver sulfadiazine cream 400gm jar TP SCH (08:00)
[2023-03-27] MEDS: PYRIDOXINE HCL (VITAMIN B6) 250 MG TABLET PO SCH (08:00)
[2023-03-27] MEDS: mupirocin 2% ointment 22GM TP SCH ×2 (08:00→20:18)
[2023-03-27] MEDS: K and/or MAG REPLACEMENT MC SCH ×2 (08:00→19:20)
[2023-03-27] MEDS: docusate sod 100mg capsule PO SCH ×2 (08:00→19:22)
[2023-03-27] MEDS: ceFAZolin/D5W- 1GM premix 50 ML IV SCH (08:00)
[2023-03-27] MEDS: thiamine 100mg tablet PO SCH (08:29)
[2023-03-27] MEDS: folic acid 1mg tablet PO SCH (08:29)
[2023-03-27] MEDS: carvedilol 6.25mg tablet PO SCH ×2 (08:29→19:25)
[2023-03-27] MEDS: multivitamins, therapeutics tablet PO SCH (08:29)
[2023-03-27] MEDS: furosemide 20 MG/2 ML vial IV SCH ×2 (08:30→19:25)
[2023-03-27] MEDS: nicotine 21mg patch - 24 hr TD SCH (08:31)
[2023-03-27] MEDS: amox tr/potassium clavulanate 875/125mg TAB PO SCH (19:25)
[2023-03-27] MEDS: METHYL SALICYLATE 15%/MENTHOL 1% CREAM-- 85GM TUBE TOP PRN (21:13)
[2023-03-28] VITALS (8 sets, daily range): BP systolic 99–116; BP diastolic 52–84; PULSE 78–84; RESP 16–21; TEMP 97.7–98.5; O2SAT 93–99
[2023-03-28] MEDS: morphine 2 MG/ML inj. syringe IV PRN ×3 (01:15→11:16)
[2023-03-28] MEDS: albuterol 2.5 MG/3 ML nebule NEB SCH ×4 (03:00→20:52)
[2023-03-28 06:15] LABS: BASOPHILS % (AUTO) 0.9 % (0-1); EOSINOPHILS # (AUTO) 0.1 X10'3 (0-0.9); EOSINOPHILS % (AUTO) 2.7 % (0-6); HEMATOCRIT 34.8 % (42.0-52.0); HEMOGLOBIN 11.4 g/dl (14.0-17.9); LYMPHOCYTES # (AUTO) 1.3 X10'3 (1.1-4.8); LYMPHOCYTES % (AUTO) 29.1 % (21-51); MEAN CORPUSCULAR HEMOGLOBIN 28.6 PG (27.0-31.0); MEAN CORPUSCULAR HGB CONC 32.8 g/dL (33.0-36.5); MEAN CORPUSCULAR VOLUME 87.3 FL (78-98); MEAN PLATELET VOLUME 12.1 FL (7.4-10.4); MONOCYTES # (AUTO) 0.4 X10'3 (0-0.9); MONOCYTES % (AUTO) 8.9 % (2-12); NEUTROPHILS # (AUTO) 2.7 X10'3 (1.8-7.7); NEUTROPHILS % (AUTO) 58.4 % (42-75); PLATELET COUNT 94 X10'3 (140-440); RED BLOOD COUNT 3.99 X10'6 (4.70-6.10); RED CELL DISTRIBUTION WIDTH 14.9 % (11.5-14.5); WHITE BLOOD COUNT 4.5 X10'3 (4.5-11.0)
[2023-03-28 06:26] LABS: ALANINE AMINOTRANSFERASE 13 U/L (12-78); ALBUMIN 3.4 G/DL (3.4-5.0); ALBUMIN/GLOBULIN RATIO 1.2 (1.1-1.5); ALKALINE PHOSPHATASE 193 IU/L (46-116); ANION GAP 8 (8-16); ASPARTATE AMINO TRANSFERASE 21 U/L (10-37); BILIRUBIN,TOTAL 1.8 MG/DL (0.1-1.0); BLOOD UREA NITROGEN 17 MG/DL (7-18); BUN/CREATININE RATIO 24.3 (10.0-20.0); CHLORIDE 103 MMOL/L (99-107); GLUCOSE 86 MG/DL (70-104); POTASSIUM 3.9 MMOL/L (3.5-5.1); SODIUM 136 MMOL/L (135-145); TOTAL CARBON DIOXIDE 25.5 MMOL/L (24-32); TOTAL PROTEIN 6.3 G/DL (6.4-8.2); eCRCL 123 ML/MIN; eGFR > 90 ML/MIN
[2023-03-28] MEDS: budesonide 0.5mg/2ml UD nebule IH SCH ×2 (07:27→20:52)
[2023-03-28] MEDS: K and/or MAG REPLACEMENT MC SCH ×2 (08:00→20:00)
[2023-03-28] MEDS: docusate sod 100mg capsule PO SCH ×2 (08:00→20:00)
[2023-03-28] MEDS: silver sulfadiazine cream 400gm jar TP SCH (08:00)
[2023-03-28] MEDS: amox tr/potassium clavulanate 875/125mg TAB PO SCH ×2 (08:14→21:37)
[2023-03-28] MEDS: carvedilol 6.25mg tablet PO SCH ×2 (08:14→21:37)
[2023-03-28] MEDS: multivitamins, therapeutics tablet PO SCH (08:14)
[2023-03-28] MEDS: PYRIDOXINE HCL (VITAMIN B6) 250 MG TABLET PO SCH (08:14)
[2023-03-28] MEDS: nicotine 21mg patch - 24 hr TD SCH (08:15)
[2023-03-28] MEDS: thiamine 100mg tablet PO SCH (08:15)
[2023-03-28] MEDS: folic acid 1mg tablet PO SCH (08:15)
[2023-03-28] MEDS: mupirocin 2% ointment 22GM TP SCH (08:15)
[2023-03-28] MEDS: METHYL SALICYLATE 15%/MENTHOL 1% CREAM-- 85GM TUBE TOP PRN (08:17)
[2023-03-28] MEDS: JUVEN Smoothie Arginine/Glut./Ca2+Bmb (Juven 19.3pkt) 240ml cup PO SCH ×2 (08:18→17:35)
[2023-03-28] MEDS: furosemide 20 MG/2 ML vial IV SCH ×2 (09:15→21:38)
[2023-03-28] MEDS: morphine sulfate IR 15MG tablet PO PRN ×2 (15:44→21:44)
[2023-03-29] VITALS (9 sets, daily range): BP systolic 94–108; BP diastolic 50–59; PULSE 71–108; RESP 12–22; TEMP 97.5–98.9; O2SAT 95–100
[2023-03-29] MEDS: albuterol 2.5 MG/3 ML nebule NEB SCH ×2 (02:30→07:22)
[2023-03-29] MEDS: morphine sulfate IR 15MG tablet PO PRN ×3 (04:43→18:01)
[2023-03-29] MEDS: budesonide 0.5mg/2ml UD nebule IH SCH (07:22)
[2023-03-29] MEDS ORDERED: albuterol 2.5 MG/3 ML nebule NEB PRN (07:45)
[2023-03-29] MEDS: K and/or MAG REPLACEMENT MC SCH ×2 (08:00→19:28)
[2023-03-29] MEDS: docusate sod 100mg capsule PO SCH ×2 (08:00→19:31)
[2023-03-29] MEDS: amox tr/potassium clavulanate 875/125mg TAB PO SCH ×2 (08:15→19:28)
[2023-03-29] MEDS: folic acid 1mg tablet PO SCH (08:15)
[2023-03-29] MEDS: multivitamins, therapeutics tablet PO SCH (08:15)
[2023-03-29] MEDS: PYRIDOXINE HCL (VITAMIN B6) 250 MG TABLET PO SCH (08:15)
[2023-03-29] MEDS: carvedilol 6.25mg tablet PO SCH ×2 (08:15→21:28)
[2023-03-29] MEDS: thiamine 100mg tablet PO SCH (08:16)
[2023-03-29] MEDS: mupirocin 2% ointment 22GM TP SCH (08:16)
[2023-03-29] MEDS: nicotine 21mg patch - 24 hr TD SCH (08:16)
[2023-03-29] MEDS: furosemide 20 MG/2 ML vial IV SCH ×2 (08:17→21:28)
[2023-03-29] MEDS: JUVEN Smoothie Arginine/Glut./Ca2+Bmb (Juven 19.3pkt) 240ml cup PO SCH ×2 (08:17→17:30)
[2023-03-29 08:36] LABS: ALBUMIN 3.4 G/DL (3.4-5.0); ANION GAP 5 (8-16); BLOOD UREA NITROGEN 19 MG/DL (7-18); BUN/CREATININE RATIO 23.2 (10.0-20.0); CALCIUM 8.9 MG/DL (8.5-10.1); CHLORIDE 103 MMOL/L (99-107); CREATININE 0.82 MG/DL (0.60-1.10); GLUCOSE 92 MG/DL (70-104); MAGNESIUM 1.9 MG/DL (1.5-2.4); PHOSPHORUS 4.3 MG/DL (2.3-4.5); POTASSIUM 3.9 MMOL/L (3.5-5.1); SODIUM 136 MMOL/L (135-145); TOTAL CARBON DIOXIDE 27.6 MMOL/L (24-32); eCRCL 105 ML/MIN; eGFR > 90 ML/MIN
[2023-03-29 08:40] LABS: BASOPHILS % (AUTO) 1.1 % (0-1); EOSINOPHILS # (AUTO) 0.2 X10'3 (0-0.9); EOSINOPHILS % (AUTO) 3.9 % (0-6); HEMATOCRIT 33.2 % (42.0-52.0); HEMOGLOBIN 10.9 g/dl (14.0-17.9); LYMPHOCYTES # (AUTO) 1.2 X10'3 (1.1-4.8); LYMPHOCYTES % (AUTO) 26.2 % (21-51); MEAN CORPUSCULAR HEMOGLOBIN 28.8 PG (27.0-31.0); MEAN CORPUSCULAR HGB CONC 32.7 g/dL (33.0-36.5); MEAN CORPUSCULAR VOLUME 87.9 FL (78-98); MEAN PLATELET VOLUME 10.9 FL (7.4-10.4); MONOCYTES # (AUTO) 0.4 X10'3 (0-0.9); MONOCYTES % (AUTO) 9.6 % (2-12); NEUTROPHILS # (AUTO) 2.6 X10'3 (1.8-7.7); NEUTROPHILS % (AUTO) 59.2 % (42-75); PLATELET COUNT 87 X10'3 (140-440); RED BLOOD COUNT 3.78 X10'6 (4.70-6.10); RED CELL DISTRIBUTION WIDTH 14.8 % (11.5-14.5); WHITE BLOOD COUNT 4.4 X10'3 (4.5-11.0)
[2023-03-29 10:06] LABS: ALANINE AMINOTRANSFERASE 14 U/L (12-78); ALBUMIN/GLOBULIN RATIO 1.2 (1.1-1.5); ALKALINE PHOSPHATASE 195 IU/L (46-116); ASPARTATE AMINO TRANSFERASE 22 U/L (10-37); BILIRUBIN,DIRECT 0.9 MG/DL (0-0.3); BILIRUBIN,TOTAL 1.7 MG/DL (0.1-1.0); TOTAL PROTEIN 6.3 G/DL (6.4-8.2)
[2023-03-30] MEDS: morphine sulfate IR 15MG tablet PO PRN ×4 (00:27→19:28)
[2023-03-30 02:00] VITALS: BP 98/51; PULSE 99; RESP 19; TEMP 97.7; O2SAT 98
[2023-03-30 07:00] VITALS: BP 107/53; PULSE 91; RESP 16; TEMP 97.5; O2SAT 99
[2023-03-30 07:04] LABS: HBSAG SCREEN Negative (Negative); HEP B CORE AB, IGM Negative (Negative); HEPATITIS C VIRUS ANTIBODY Non Reactive (Non Reactive)
[2023-03-30 07:28] VITALS: PULSE 77; RESP 16; O2SAT 98
[2023-03-30] MEDS: furosemide 20 MG/2 ML vial IV SCH ×2 (07:30→19:29)
[2023-03-30] MEDS: K and/or MAG REPLACEMENT MC SCH ×2 (08:00→20:00)
[2023-03-30] MEDS: docusate sod 100mg capsule PO SCH ×2 (08:00→20:00)
[2023-03-30] MEDS: folic acid 1mg tablet PO SCH (08:30)
[2023-03-30] MEDS: amox tr/potassium clavulanate 875/125mg TAB PO SCH ×2 (08:30→19:35)
[2023-03-30] MEDS: JUVEN Smoothie Arginine/Glut./Ca2+Bmb (Juven 19.3pkt) 240ml cup PO SCH ×2 (08:30→17:30)
[2023-03-30] MEDS: multivitamins, therapeutics tablet PO SCH (08:30)
[2023-03-30] MEDS: PYRIDOXINE HCL (VITAMIN B6) 250 MG TABLET PO SCH (08:30)
[2023-03-30] MEDS: carvedilol 6.25mg tablet PO SCH ×2 (08:30→19:29)
[2023-03-30] MEDS: thiamine 100mg tablet PO SCH (08:30)
[2023-03-30] MEDS: nicotine 21mg patch - 24 hr TD SCH (08:31)
[2023-03-30] MEDS: mupirocin 2% ointment 22GM TP SCH (08:31)
[2023-03-30 09:15] LABS: BASOPHILS % (AUTO) 0.9 % (0-1); EOSINOPHILS # (AUTO) 0.2 X10'3 (0-0.9); EOSINOPHILS % (AUTO) 3.5 % (0-6); HEMATOCRIT 35.4 % (42.0-52.0); HEMOGLOBIN 11.7 g/dl (14.0-17.9); LYMPHOCYTES # (AUTO) 1.2 X10'3 (1.1-4.8); LYMPHOCYTES % (AUTO) 25.9 % (21-51); MEAN CORPUSCULAR VOLUME 87.7 FL (78-98); MEAN PLATELET VOLUME 10.8 FL (7.4-10.4); MONOCYTES # (AUTO) 0.5 X10'3 (0-0.9); MONOCYTES % (AUTO) 9.8 % (2-12); NEUTROPHILS # (AUTO) 2.8 X10'3 (1.8-7.7); NEUTROPHILS % (AUTO) 59.9 % (42-75); PLATELET COUNT 97 X10'3 (140-440); RED BLOOD COUNT 4.04 X10'6 (4.70-6.10); RED CELL DISTRIBUTION WIDTH 15.2 % (11.5-14.5); WHITE BLOOD COUNT 4.7 X10'3 (4.5-11.0)
[2023-03-30 09:28] LABS: ANION GAP 9 (8-16); BLOOD UREA NITROGEN 20 MG/DL (7-18); CALCIUM 9.2 MG/DL (8.5-10.1); CHLORIDE 102 MMOL/L (99-107); CREATININE 0.77 MG/DL (0.60-1.10); GLUCOSE 101 MG/DL (70-104); PHOSPHORUS 4.3 MG/DL (2.3-4.5); SODIUM 137 MMOL/L (135-145); TOTAL CARBON DIOXIDE 26.1 MMOL/L (24-32); eCRCL 112 ML/MIN; eGFR > 90 ML/MIN
[2023-03-30 09:29] LABS: ALBUMIN 3.8 G/DL (3.4-5.0); MAGNESIUM 1.9 MG/DL (1.5-2.4)
[2023-03-30 10:39] LABS: PLATELET ESTIMATE DECREASED
[2023-03-30 10:40] LABS: BURR CELLS FEW; ELLIPTOCYTES FEW; TEAR DROP CELLS FEW
[2023-03-30 10:41] LABS: POLYCHROMASIA FEW
[2023-03-30 11:00] VITALS: BP 97/49; PULSE 74; RESP 20; TEMP 98; O2SAT 98
[2023-03-30] MEDS ORDERED: MESSAGE TO NURSING PO ONE ×4 (12:50)
[2023-03-30] MEDS ORDERED: dextrose 50%-water 50ml dispensing syringe IV PRN (12:50)
[2023-03-30 13:06] LABS: ALANINE AMINOTRANSFERASE 14 U/L (12-78); ALBUMIN/GLOBULIN RATIO 1.2 (1.1-1.5); ALKALINE PHOSPHATASE 219 IU/L (46-116); ASPARTATE AMINO TRANSFERASE 27 U/L (10-37); BILIRUBIN,TOTAL 1.9 MG/DL (0.1-1.0); TOTAL PROTEIN 6.9 G/DL (6.4-8.2)
[2023-03-30 14:08] LABS: INR 1.2 INR
[2023-03-30 18:00] VITALS: BP 100/59; PULSE 82; RESP 18; TEMP 97.7; O2SAT 95
[2023-03-30 20:00] VITALS: RESP 18; O2SAT 95
[2023-03-30] MEDS ORDERED: mupirocin 2% nasal ointment 1gm UD NS SCH (20:00)
[2023-03-30 20:16] LABS: ABG BASE EXCESS 4.4 mmol/L (-2.0-2.0); ABG HCO3 27.6 mmol/L (22.0-26.0); ABG OXYGEN SATURATION 96.5 % (94-97); ABG PCO2 (T) 36.1 mmHg (35.0-48.0); ABG PH (T) 7.501 (7.340-7.440); ABG PO2 (T) 80.1 mmHg (75.0-100.0); FCOHb 0.8 % (0.0-3.9); FHHb 3.5 % (0.0-5.0); FMetHb 0.3 % (0.0-1.5); FO2Hb 95.4 % (94-97); MODE ROOM AIR; TOTAL HEMOGLOBIN 12.8 G/dl (14.0-17.9)
[2023-03-31] VITALS (25 sets, daily range): BP systolic 104–172; BP diastolic 57–95; PULSE 59–90; RESP 13–21; TEMP 97.5–98.5; O2SAT 94–100
[2023-03-31] MEDS: morphine sulfate IR 15MG tablet PO PRN ×2 (01:17→08:03)
[2023-03-31] MEDS ORDERED: insulin glargine (Lantus) pen - multi-dose SQ PRN ×2 (05:30→14:10)
[2023-03-31] MEDS ORDERED: Insulin Reg/NS 100units/100mL 100 ML IV SCH (05:30)
[2023-03-31] MEDS ORDERED: ceFAZolin inj. 3,000 MG in normal saline 100ml IV soln 100 ML IV ONE (05:30)
[2023-03-31 06:20] LABS: EOSINOPHILS # (AUTO) 0.2 X10'3 (0-0.9); EOSINOPHILS % (AUTO) 3.4 % (0-6); HEMATOCRIT 34.4 % (42.0-52.0); HEMOGLOBIN 11.3 g/dl (14.0-17.9); LYMPHOCYTES # (AUTO) 1.2 X10'3 (1.1-4.8); MEAN CORPUSCULAR HEMOGLOBIN 28.8 PG (27.0-31.0); MEAN CORPUSCULAR HGB CONC 32.8 g/dL (33.0-36.5); MEAN PLATELET VOLUME 10.2 FL (7.4-10.4); MONOCYTES # (AUTO) 0.4 X10'3 (0-0.9); MONOCYTES % (AUTO) 8.9 % (2-12); NEUTROPHILS # (AUTO) 3.1 X10'3 (1.8-7.7); NEUTROPHILS % (AUTO) 61.7 % (42-75); PLATELET COUNT 90 X10'3 (140-440); RED BLOOD COUNT 3.91 X10'6 (4.70-6.10); RED CELL DISTRIBUTION WIDTH 14.9 % (11.5-14.5); WHITE BLOOD COUNT 4.9 X10'3 (4.5-11.0)
[2023-03-31 06:27] LABS: INR 1.3 INR; PROTHROMBIN TIME 13.6 SECONDS (9.0-12.0)
[2023-03-31 06:37] LABS: CHLORIDE 102 MMOL/L (99-107); GLUCOSE 95 MG/DL (70-104); POTASSIUM 3.7 MMOL/L (3.5-5.1); SODIUM 136 MMOL/L (135-145)
[2023-03-31 06:38] LABS: ALBUMIN 3.5 G/DL (3.4-5.0); ANION GAP 8 (8-16); BLOOD UREA NITROGEN 26 MG/DL (7-18); BUN/CREATININE RATIO 32.9 (10.0-20.0); CALCIUM 9.2 MG/DL (8.5-10.1); CREATININE 0.79 MG/DL (0.60-1.10); MAGNESIUM 1.8 MG/DL (1.5-2.4); PHOSPHORUS 4.1 MG/DL (2.3-4.5); eCRCL 109 ML/MIN; eGFR > 90 ML/MIN
[2023-03-31] MEDS ORDERED: epiNEPHrine 1 mg/ml inj ONE ×2 (07:34→10:49)
[2023-03-31] MEDS ORDERED: BUPIVACAINE liposomal/PF 13.3 MG/ML vial IM ONE (07:34)
[2023-03-31] MEDS ORDERED: vancomycin 1,000mg inj ONE (07:34)
[2023-03-31] MEDS ORDERED: BUPIVAcaine 2.5mg/ml inj 50ml vial (contains preservative) ONE (07:34)
[2023-03-31] MEDS ORDERED: ceFAZolin 1000mg inj ONE ×2 (07:34→13:20)
[2023-03-31] MEDS ORDERED: famotidine/PF 10 mg/ml inj IV ONE (07:50)
[2023-03-31] MEDS ORDERED: LORazepam 2 mg/ml vial IM ONE (07:50)
[2023-03-31] MEDS: thiamine 100mg tablet PO SCH (08:00)
[2023-03-31] MEDS: PYRIDOXINE HCL (VITAMIN B6) 250 MG TABLET PO SCH (08:00)
[2023-03-31] MEDS: folic acid 1mg tablet PO SCH (08:00)
[2023-03-31] MEDS: carvedilol 6.25mg tablet PO SCH (08:03)
[2023-03-31] MEDS ORDERED: SUfentanil 50mcg/ml 1ml amp IV ONE ×2 (08:08)
[2023-03-31] MEDS ORDERED: midazolam 1 mg/ML 2ml injection ONE (08:08)
[2023-03-31] MEDS ORDERED: nitroGLYCERIN in D5W 50mg/250ml (Tridil) infusion IV ONE (08:15)
[2023-03-31] MEDS ORDERED: NORepinephrine 8 MG in NS 250 ML BAG (32 mcg/ml) IV ONE (08:15)
[2023-03-31] MEDS ORDERED: isoflurane 100ml inhalation liquid IH ONE (08:15)
[2023-03-31] MEDS ORDERED: protamine sulf. 10mg/ml inj. IV ONE (08:15)
[2023-03-31] MEDS ORDERED: DOBUTamine/D5W 500mg/250ml premix IV ONE (08:15)
[2023-03-31] MEDS ORDERED: aminocaproic acid 250 MG/1 ML inj. ONE (08:15)
[2023-03-31] MEDS ORDERED: [UNRECOGNIZED DRUG - OTHER] IV ONE (08:15)
[2023-03-31] MEDS ORDERED: MESSAGE TO PHARMACY IJ ONE (08:30)
[2023-03-31 09:03] LABS: ABG BASE EXCESS 1.7 mmol/L (-2.0-2.0); ABG HCO3 27.2 mmol/L (22.0-26.0); ABG OXYGEN SATURATION 99.7 % (94-97); ABG PH 7.381 (7.340-7.440); ABG PO2 396.1 mmHg (75.0-100.0); CL (ABG) 101 mmol/L (99-107); FHHb 0.3 % (0.0-5.0); FMetHb 0.3 % (0.0-1.5); FO2Hb 99.4 % (94-97); GLUCOSE (ABG) 90 mg/dl (70-104); IONIZED CA (ABG) 1.19 mmol/L (1.10-1.30); K (ABG) 3.8 mmol/L (3.5-5.1); TOTAL HEMOGLOBIN 11.6 G/dl (14.0-17.9)
[2023-03-31 09:32] LABS: ACT @ 1.70 U 371 SEC (193-297); ACT @ 2.84 U 601 SEC (260-420); BASELINE ACT 173 SEC (101-148)
[2023-03-31] MEDS ORDERED: MESSAGE TO NURSING PO ONE (10:00)
[2023-03-31 10:28] LABS: ABG BASE EXCESS -0.9 mmol/L (-2.0-2.0); ABG HCO3 25.8 mmol/L (22.0-26.0); ABG OXYGEN SATURATION 99.6 % (94-97); ABG PCO2 51.9 mmHg (35.0-48.0); ABG PH 7.314 (7.340-7.440); ABG PO2 341.1 mmHg (75.0-100.0); CL (ABG) 100 mmol/L (99-107); FHHb 0.4 % (0.0-5.0); FMetHb 0.1 % (0.0-1.5); FO2Hb 99.5 % (94-97); GLUCOSE (ABG) 106 mg/dl (70-104); IONIZED CA (ABG) 1.17 mmol/L (1.10-1.30); K (ABG) 4.9 mmol/L (3.5-5.1); TOTAL HEMOGLOBIN 11.3 G/dl (14.0-17.9)
[2023-03-31] MEDS ORDERED: ipratropium/albuterol 3ml nebule IH PRN (10:45)
[2023-03-31 10:48] LABS: ABG BASE EXCESS VENOUS -2.2 mmol/L (-2.0 - 2.0); ABG HCO3 VENOUS 24.4 mmol/L (21.0-28.0); ABG OXYGEN SATURATION VENOUS 89.4 % (75 - 99 %); ABG PCO2 VENOUS 49.4 mmHg (41.0-54.0); ABG PH (VENOUS) 7.311 (7.310-7.450); ABG PO2 VENOUS 60.7 mmHg (25.0-35.0); CL (ABG) 99 mmol/L (99-107); FCOHb VENOUS 0.2 %; FHHb VENOUS 10.5 %; FMetHb VENOUS 0.3 % (0.0 - 0.5); GLUCOSE (ABG) 111 mg/dl (70-104); IONIZED CA (ABG) 1.09 mmol/L (1.10-1.30); K (ABG) 4.6 mmol/L (3.5-5.1); TOTAL HEMOGLOBIN 11.5 G/dl (14.0-17.9)
[2023-03-31] MEDS ORDERED: rocuronium 10mg/ml inj IV ONE (10:49)
[2023-03-31] MEDS ORDERED: acetaminophen 1,000mg/100ml IV 100 ML IV ONE (10:49)
[2023-03-31] MEDS ORDERED: etomidate 2mg/ml inj. ONE (10:49)
[2023-03-31] MEDS ORDERED: phenylephrine 10mg/ml inj. -priapism dosing ONE (10:49)
[2023-03-31] MEDS ORDERED: LIDOcaine 2% (20mg/ml) 5ml vial ONE (10:49)
[2023-03-31 11:29] LABS: ABG BASE EXCESS -0.7 mmol/L (-2.0-2.0); ABG HCO3 24.3 mmol/L (22.0-26.0); ABG OXYGEN SATURATION 99.8 % (94-97); ABG PO2 383.6 mmHg (75.0-100.0); CL (ABG) 100 mmol/L (99-107); FCOHb 0.2 % (0.0-3.9); FHHb 0.2 % (0.0-5.0); FMetHb 0.1 % (0.0-1.5); FO2Hb 99.5 % (94-97); GLUCOSE (ABG) 143 mg/dl (70-104); IONIZED CA (ABG) 1.23 mmol/L (1.10-1.30); K (ABG) 5.2 mmol/L (3.5-5.1); TOTAL HEMOGLOBIN 11.6 G/dl (14.0-17.9)
[2023-03-31 11:54] LABS: ABG BASE EXCESS VENOUS -3.9 mmol/L (-2.0 - 2.0); ABG HCO3 VENOUS 21.9 mmol/L (21.0-28.0); ABG OXYGEN SATURATION VENOUS 83.9 % (75 - 99 %); ABG PCO2 VENOUS 42.6 mmHg (41.0-54.0); ABG PH (VENOUS) 7.329 (7.310-7.450); ABG PO2 VENOUS 53.9 mmHg (25.0-35.0); CL (ABG) 99 mmol/L (99-107); FCOHb VENOUS 0.1 %; FHHb VENOUS 16.1 %; FO2Hb VENOUS 83.8 %; GLUCOSE (ABG) 134 mg/dl (70-104); K (ABG) 5.3 mmol/L (3.5-5.1); TOTAL HEMOGLOBIN 11.3 G/dl (14.0-17.9)
[2023-03-31 12:59] LABS: ABG BASE EXCESS VENOUS -1.9 mmol/L (-2.0 - 2.0); ABG HCO3 VENOUS 23.9 mmol/L (21.0-28.0); ABG PCO2 VENOUS 45.4 mmHg (41.0-54.0); ABG PH (VENOUS) 7.339 (7.310-7.450); ABG PO2 VENOUS 42.5 mmHg (25.0-35.0); CL (ABG) 100 mmol/L (99-107); FCOHb VENOUS 0.3 %; FHHb VENOUS 25.8 %; FMetHb VENOUS 0.3 % (0.0 - 0.5); FO2Hb VENOUS 73.6 %; GLUCOSE (ABG) 123 mg/dl (70-104); IONIZED CA (ABG) 1.15 mmol/L (1.10-1.30); K (ABG) 4.4 mmol/L (3.5-5.1); TOTAL HEMOGLOBIN 10.2 G/dl (14.0-17.9)
[2023-03-31 13:02] LABS: ACTIVATED CLOTTING TIME 124 SEC (101-148)
[2023-03-31 13:29] LABS: ABG BASE EXCESS VENOUS -3.1 mmol/L (-2.0 - 2.0); ABG OXYGEN SATURATION VENOUS 76.9 % (75 - 99 %); ABG PCO2 VENOUS 45.9 mmHg (41.0-54.0); ABG PH (VENOUS) 7.318 (7.310-7.450); ABG PO2 VENOUS 46.3 mmHg (25.0-35.0); CL (ABG) 101 mmol/L (99-107); FCOHb VENOUS 0.7 %; FHHb VENOUS 22.9 %; FMetHb VENOUS 0.3 % (0.0 - 0.5); FO2Hb VENOUS 76.1 %; GLUCOSE (ABG) 111 mg/dl (70-104); IONIZED CA (ABG) 1.16 mmol/L (1.10-1.30); TOTAL HEMOGLOBIN 9.8 G/dl (14.0-17.9)
[2023-03-31 13:31] LABS: ABG HCO3 VENOUS 23.2 mmol/L (21.0-28.0); ABG OXYGEN SATURATION VENOUS 73.2 % (75 - 99 %); ABG PCO2 VENOUS 46.3 mmHg (41.0-54.0); ABG PH (VENOUS) 7.317 (7.310-7.450); ABG PO2 VENOUS 42.6 mmHg (25.0-35.0); CL (ABG) 101 mmol/L (99-107); FHHb VENOUS 26.5 %; FMetHb VENOUS 0.3 % (0.0 - 0.5); FO2Hb VENOUS 72.2 %; GLUCOSE (ABG) 112 mg/dl (70-104); IONIZED CA (ABG) 1.18 mmol/L (1.10-1.30); TOTAL HEMOGLOBIN 9.7 G/dl (14.0-17.9)
[2023-03-31] MEDS ORDERED: Neutra Phos packet PO PRN (14:10)
[2023-03-31] MEDS ORDERED: potassium CL 10mEq/100ml bag 100 ML IV PRN (14:10)
[2023-03-31] MEDS ORDERED: mineral oil 133ml enema RC PRN (14:10)
[2023-03-31] MEDS ORDERED: albumin (Human) 5% 250ml 250 ML IV PRN (14:10)
[2023-03-31] MEDS ORDERED: dextrose 50%-water 50ml dispensing syringe IV PRN (14:10)
[2023-03-31] MEDS ORDERED: acetaminophen 325mg tablet PO PRN (14:10)
[2023-03-31] MEDS ORDERED: ondansetron/PF 4mg/2ml inj IV PRN (14:10)
[2023-03-31] MEDS ORDERED: nitroGLYCERIN-Tridil 50MG/D5W 250 ML IV PRN (14:10)
[2023-03-31] MEDS ORDERED: DOBUTamine-DoBUTrex 500mg/D5W 250 ML IV PRN (14:10)
[2023-03-31] MEDS ORDERED: potassium Cl 40MEQ/1/2NS 520ml 520 ML IV PRN (14:10)
[2023-03-31] MEDS ORDERED: magnesium 2GM in 50ml NS 50 ML IV PRN (14:10)
[2023-03-31] MEDS ORDERED: potassium Cl 20 mEq SR tablet PO PRN (14:10)
[2023-03-31] MEDS ORDERED: bisacodyl 10mg suppository rectal RC PRN (14:10)
[2023-03-31] MEDS ORDERED: potassium Cl 40MEQ/270ML bag 250 ML IV PRN (14:10)
[2023-03-31] MEDS ORDERED: normal saline 250ml IV soln 250 ML IV PRN (14:10)
[2023-03-31] MEDS ORDERED: magnesium hydroxide 30ml (MOM) UD suspension PO PRN (14:10)
[2023-03-31] MEDS ORDERED: sodium phosphate inj. 15 MMOL in dextrose 5%-water 250 ML IV PRN (14:10)
[2023-03-31] MEDS ORDERED: niCARDipine-NS 40mg/200ml IVPB 200 ML IV PRN (14:10)
[2023-03-31] MEDS ORDERED: sodium phosphate inj. 30 MMOL in dextrose 5%-water 250 ML IV PRN (14:10)
[2023-03-31] MEDS ORDERED: magnesium 4gm in 100ml NS 100 ML IV PRN (14:10)
[2023-03-31] MEDS ORDERED: sodium chloride 0.45% 1,000 ML IV SCH (14:10)
[2023-03-31] MEDS ORDERED: morphine 2 MG/ML inj. syringe IV PRN (14:10)
[2023-03-31] MEDS ORDERED: metoclopramide 5 mg/ml inj IV PRN (14:10)
[2023-03-31 14:12] LABS: ABG BASE EXCESS 2.4 mmol/L (-2.0-2.0); ABG HCO3 27.7 mmol/L (22.0-26.0); ABG PCO2 (T) 45.3 mmHg (35.0-48.0); ABG PH (T) 7.403 (7.340-7.440); ABG PO2 (T) 72.4 mmHg (75.0-100.0); FCOHb 0.8 % (0.0-3.9); FHHb 5.9 % (0.0-5.0); FMetHb 0.3 % (0.0-1.5); MODE VENT - SIMV; PATIENT TEMPERATURE 36.6; PEEP 5 cm H2O; RESPIRATORY RATE 12 b/min; TIDAL VOLUME 600 mL
[2023-03-31] MEDS ORDERED: propofol 1000mg/100ml bottle 100 ML IV ONE (14:17)
[2023-03-31] MEDS ORDERED: furosemide 40mg/4ml inj ONE (14:27)
[2023-03-31] MEDS ORDERED: furosemide 40mg/4ml inj IV ONE (14:30)
[2023-03-31] MEDS: propofol 1000mg/100ml bottle 100 ML IV SCH (14:30)
[2023-03-31] MEDS ORDERED: epiNEPHrine inj 5 MG in normal saline 250ml IV soln 245 ML IV PRN (14:45)
[2023-03-31 14:50] LABS: BASOPHILS % (AUTO) 0.4 % (0-1); EOSINOPHILS % (AUTO) 0.3 % (0-6); HEMATOCRIT 30.8 % (42.0-52.0); LYMPHOCYTES # (AUTO) 0.5 X10'3 (1.1-4.8); LYMPHOCYTES % (AUTO) 3.8 % (21-51); MEAN CORPUSCULAR HEMOGLOBIN 28.6 PG (27.0-31.0); MEAN CORPUSCULAR HGB CONC 32.3 g/dL (33.0-36.5); MEAN CORPUSCULAR VOLUME 88.3 FL (78-98); MEAN PLATELET VOLUME 10.2 FL (7.4-10.4); MONOCYTES # (AUTO) 0.8 X10'3 (0-0.9); MONOCYTES % (AUTO) 6.3 % (2-12); NEUTROPHILS # (AUTO) 10.9 X10'3 (1.8-7.7); NEUTROPHILS % (AUTO) 89.2 % (42-75); PLATELET COUNT 156 X10'3 (140-440); RED BLOOD COUNT 3.49 X10'6 (4.70-6.10); WHITE BLOOD COUNT 12.2 X10'3 (4.5-11.0)
[2023-03-31 15:11] LABS: ALANINE AMINOTRANSFERASE 18 U/L (12-78); ALBUMIN 3.3 G/DL (3.4-5.0); ALBUMIN/GLOBULIN RATIO 1.4 (1.1-1.5); ALKALINE PHOSPHATASE 155 IU/L (46-116); ANION GAP 8 (8-16); BILIRUBIN,TOTAL 2.6 MG/DL (0.1-1.0); BLOOD UREA NITROGEN 24 MG/DL (7-18); BUN/CREATININE RATIO 27.9 (10.0-20.0); CALCIUM 8.7 MG/DL (8.5-10.1); CHLORIDE 105 MMOL/L (99-107); CREATININE 0.86 MG/DL (0.60-1.10); GLUCOSE 105 MG/DL (70-104); MAGNESIUM 3.5 MG/DL (1.5-2.4); SODIUM 141 MMOL/L (135-145); TOTAL CARBON DIOXIDE 28.3 MMOL/L (24-32); TOTAL PROTEIN 5.7 G/DL (6.4-8.2); eCRCL 100 ML/MIN; eGFR > 90 ML/MIN
[2023-03-31 15:12] LABS: ASPARTATE AMINO TRANSFERASE 52 U/L (10-37); PHOSPHORUS 3.3 MG/DL (2.3-4.5)
[2023-03-31] MEDS: Insulin Reg/NS 100units/100mL 100 ML IV SCH (15:46)
[2023-03-31 15:50] LABS: APTT 27 SECONDS (22-32); INR 1.4 INR; PROTHROMBIN TIME 14.6 SECONDS (9.0-12.0)
[2023-03-31] MEDS: ceFAZolin/D5W- 1GM premix 50 ML IV SCH ×2 (16:16→23:39)
[2023-03-31] MEDS: potassium Cl 20mEq/100mL bag 100 ML IV PRN ×2 (16:17→18:27)
[2023-03-31 17:38] LABS: FIBRINOGEN 229 MG/DL (177-424)
[2023-03-31] MEDS: vancomycin/NS 1 GM ADD-VANTAGE 250 ML IV SCH (19:55)
[2023-03-31] MEDS: sennosides/docusate sodium tablet PO SCH (19:55)
[2023-03-31] MEDS: mupirocin 2% nasal ointment 1gm UD NS SCH (19:55)
[2023-03-31] MEDS: morphine 4 MG/ML inj SYRINge IV PRN ×2 (19:56→22:26)
[2023-03-31 20:29] LABS: BASOPHILS % (AUTO) 0.2 % (0-1); EOSINOPHILS % (AUTO) 0.1 % (0-6); HEMATOCRIT 35.4 % (42.0-52.0); HEMOGLOBIN 11.8 g/dl (14.0-17.9); LYMPHOCYTES # (AUTO) 0.3 X10'3 (1.1-4.8); LYMPHOCYTES % (AUTO) 3.3 % (21-51); MEAN CORPUSCULAR HEMOGLOBIN 29.1 PG (27.0-31.0); MEAN CORPUSCULAR HGB CONC 33.3 g/dL (33.0-36.5); MEAN CORPUSCULAR VOLUME 87.3 FL (78-98); MEAN PLATELET VOLUME 10.3 FL (7.4-10.4); MONOCYTES # (AUTO) 0.3 X10'3 (0-0.9); MONOCYTES % (AUTO) 3.7 % (2-12); NEUTROPHILS # (AUTO) 8.3 X10'3 (1.8-7.7); NEUTROPHILS % (AUTO) 92.7 % (42-75); PLATELET COUNT 124 X10'3 (140-440); RED BLOOD COUNT 4.06 X10'6 (4.70-6.10); RED CELL DISTRIBUTION WIDTH 15.1 % (11.5-14.5); WHITE BLOOD COUNT 8.9 X10'3 (4.5-11.0)
[2023-03-31 20:48] LABS: ALBUMIN 3.5 G/DL (3.4-5.0); BLOOD UREA NITROGEN 24 MG/DL (7-18); BUN/CREATININE RATIO 38.7 (10.0-20.0); CALCIUM 8.7 MG/DL (8.5-10.1); CREATININE 0.62 MG/DL (0.60-1.10); GLUCOSE 119 MG/DL (70-104); MAGNESIUM 2.7 MG/DL (1.5-2.4); PHOSPHORUS 3.7 MG/DL (2.3-4.5); eCRCL 139 ML/MIN; eGFR > 90 ML/MIN
[2023-03-31 21:02] LABS: ANION GAP 11 (8-16); CHLORIDE 102 MMOL/L (99-107); SODIUM 135 MMOL/L (135-145)
[2023-03-31 21:11] LABS: POTASSIUM 5.1 MMOL/L (3.5-5.1)
[2023-03-31 21:12] LABS: TOTAL CARBON DIOXIDE 22.5 MMOL/L (24-32)
[2023-03-31] MEDS: ipratropium/albuterol 3ml nebule NEB SCH (21:16)
[2023-03-31 23:53] LABS: ABG BASE EXCESS -0.4 mmol/L (-2.0-2.0); ABG HCO3 22.6 mmol/L (22.0-26.0); ABG OXYGEN SATURATION 96.7 % (94-97); ABG PCO2 (T) 30.7 mmHg (35.0-48.0); ABG PH (T) 7.482 (7.340-7.440); ABG PO2 (T) 76.7 mmHg (75.0-100.0); FCOHb 0.4 % (0.0-3.9); FHHb 3.3 % (0.0-5.0); FMetHb 0.3 % (0.0-1.5); PATIENT TEMPERATURE 36.2; PEEP 5 cm H2O; TOTAL HEMOGLOBIN 11.2 G/dl (14.0-17.9)
[2023-04-01] VITALS (31 sets, daily range): BP systolic 107–173; BP diastolic 49–90; PULSE 75–99; RESP 12–23; O2SAT 93–99
[2023-04-01] MEDS: morphine 4 MG/ML inj SYRINge IV PRN ×4 (00:11→13:35)
[2023-04-01] MEDS: ipratropium/albuterol 3ml nebule NEB SCH ×4 (03:00→21:20)
[2023-04-01 03:46] LABS: BASOPHILS # (AUTO) 0.1 X10'3 (0-0.2); BASOPHILS % (AUTO) 0.8 % (0-1); EOSINOPHILS % (AUTO) 0 % (0-6); HEMATOCRIT 30.5 % (42.0-52.0); HEMOGLOBIN 10.2 g/dl (14.0-17.9); LYMPHOCYTES # (AUTO) 0.3 X10'3 (1.1-4.8); LYMPHOCYTES % (AUTO) 3.7 % (21-51); MEAN CORPUSCULAR HEMOGLOBIN 29.1 PG (27.0-31.0); MEAN CORPUSCULAR HGB CONC 33.4 g/dL (33.0-36.5); MEAN CORPUSCULAR VOLUME 87.1 FL (78-98); MEAN PLATELET VOLUME 10.8 FL (7.4-10.4); MONOCYTES # (AUTO) 0.3 X10'3 (0-0.9); MONOCYTES % (AUTO) 4.1 % (2-12); NEUTROPHILS # (AUTO) 6.7 X10'3 (1.8-7.7); NEUTROPHILS % (AUTO) 91.4 % (42-75); PLATELET COUNT 78 X10'3 (140-440); RED CELL DISTRIBUTION WIDTH 14.8 % (11.5-14.5); WHITE BLOOD COUNT 7.4 X10'3 (4.5-11.0)
[2023-04-01 03:54] LABS: APTT 29 SECONDS (22-32); INR 1.3 INR; PROTHROMBIN TIME 13.7 SECONDS (9.0-12.0)
[2023-04-01 03:57] LABS: ALANINE AMINOTRANSFERASE 15 U/L (12-78); ALBUMIN/GLOBULIN RATIO 1.3 (1.1-1.5); ALKALINE PHOSPHATASE 135 IU/L (46-116); ANION GAP 8 (8-16); ASPARTATE AMINO TRANSFERASE 37 U/L (10-37); BILIRUBIN,TOTAL 2.6 MG/DL (0.1-1.0); BLOOD UREA NITROGEN 22 MG/DL (7-18); BUN/CREATININE RATIO 29.7 (10.0-20.0); CALCIUM 8.6 MG/DL (8.5-10.1); CHLORIDE 104 MMOL/L (99-107); CREATININE 0.74 MG/DL (0.60-1.10); GLUCOSE 157 MG/DL (70-104); MAGNESIUM 2.3 MG/DL (1.5-2.4); POTASSIUM 3.9 MMOL/L (3.5-5.1); SODIUM 139 MMOL/L (135-145); TOTAL CARBON DIOXIDE 27.1 MMOL/L (24-32); TOTAL PROTEIN 5.3 G/DL (6.4-8.2); TRIGLYCERIDES 23 MG/DL (20-135); eCRCL 117 ML/MIN; eGFR > 90 ML/MIN
[2023-04-01 04:20] LABS: ANISOCYTOSIS 1+; PLATELET ESTIMATE DECREASED
[2023-04-01 04:21] LABS: BURR CELLS FEW; ELLIPTOCYTES FEW; LARGE PLATELETS FEW; POLYCHROMASIA FEW
[2023-04-01] MEDS: aspirin 81mg tab.chew PO SCH (07:52)
[2023-04-01] MEDS: PYRIDOXINE HCL (VITAMIN B6) 250 MG TABLET PO SCH (07:52)
[2023-04-01] MEDS: thiamine 100mg tablet PO SCH (07:52)
[2023-04-01] MEDS: sennosides/docusate sodium tablet PO SCH ×2 (07:52→20:35)
[2023-04-01] MEDS: ceFAZolin/D5W- 1GM premix 50 ML IV SCH ×2 (07:53→16:34)
[2023-04-01] MEDS: mupirocin 2% nasal ointment 1gm UD NS SCH ×2 (07:53→20:36)
[2023-04-01] MEDS: folic acid 1mg tablet PO SCH (07:53)
[2023-04-01] MEDS ORDERED: metoprolol tartrate 12.5mg (1/2 tablet) PO SCH (08:00)
[2023-04-01] MEDS: metoprolol tartrate 25mg tablet PO SCH ×2 (08:01→20:35)
[2023-04-01] MEDS: oxyCODONE IR 5mg (immed. release) tablet PO PRN ×3 (08:04→20:37)
[2023-04-01] MEDS: vancomycin/NS 1 GM ADD-VANTAGE 250 ML IV SCH ×2 (08:37→20:36)
[2023-04-01] MEDS ORDERED: furosemide 40mg/4ml inj IV ONE (10:10)
[2023-04-01] MEDS ORDERED: spironolactone 25 MG tablet PO ONE (10:10)
[2023-04-01 10:20] LABS: HEMOGLOBIN A1C 5.5 % (4.5-6.2)
[2023-04-01] MEDS: potassium Cl 20 mEq SR tablet PO SCH (10:38)
[2023-04-01 11:16] LABS: MAGNESIUM 2.5 MG/DL (1.5-2.4); POTASSIUM 4.1 MMOL/L (3.5-5.1)
[2023-04-01] MEDS: Insulin Reg/NS 100units/100mL 100 ML IV SCH (14:00)
[2023-04-01] MEDS: propofol 1000mg/100ml bottle 100 ML IV SCH (15:48)
[2023-04-01] MEDS: spironolactone 25 MG tablet PO SCH (20:35)
[2023-04-01] MEDS: furosemide 40mg/4ml inj IV SCH (20:37)
[2023-04-02] VITALS (32 sets, daily range): BP systolic 107–156; BP diastolic 43–97; PULSE 63–100; RESP 12–23; TEMP 97.8–98; O2SAT 4–97
[2023-04-02] MEDS: ceFAZolin/D5W- 1GM premix 50 ML IV SCH (00:10)
[2023-04-02] MEDS: oxyCODONE IR 5mg (immed. release) tablet PO PRN ×8 (00:11→23:42)
[2023-04-02] MEDS: ipratropium/albuterol 3ml nebule NEB SCH ×4 (03:00→21:21)
[2023-04-02 04:22] LABS: BASOPHILS % (AUTO) 0.1 % (0-1); EOSINOPHILS % (AUTO) 0 % (0-6); HEMATOCRIT 33.2 % (42.0-52.0); LYMPHOCYTES # (AUTO) 0.7 X10'3 (1.1-4.8); LYMPHOCYTES % (AUTO) 4.5 % (21-51); MEAN CORPUSCULAR HEMOGLOBIN 28.7 PG (27.0-31.0); MEAN CORPUSCULAR HGB CONC 33.2 g/dL (33.0-36.5); MEAN CORPUSCULAR VOLUME 86.6 FL (78-98); MEAN PLATELET VOLUME 10.3 FL (7.4-10.4); MONOCYTES # (AUTO) 1.3 X10'3 (0-0.9); MONOCYTES % (AUTO) 9.1 % (2-12); NEUTROPHILS # (AUTO) 12.5 X10'3 (1.8-7.7); NEUTROPHILS % (AUTO) 86.3 % (42-75); PLATELET COUNT 112 X10'3 (140-440); RED BLOOD COUNT 3.83 X10'6 (4.70-6.10); WHITE BLOOD COUNT 14.5 X10'3 (4.5-11.0)
[2023-04-02 04:37] LABS: ALBUMIN 3.5 G/DL (3.4-5.0); ANION GAP 3 (8-16); BLOOD UREA NITROGEN 34 MG/DL (7-18); BUN/CREATININE RATIO 35.8 (10.0-20.0); CALCIUM 9.2 MG/DL (8.5-10.1); CHLORIDE 96 MMOL/L (99-107); CREATININE 0.95 MG/DL (0.60-1.10); GLUCOSE 171 MG/DL (70-104); MAGNESIUM 2.4 MG/DL (1.5-2.4); PHOSPHORUS 3.6 MG/DL (2.3-4.5); POTASSIUM 5.1 MMOL/L (3.5-5.1); SODIUM 127 MMOL/L (135-145); TOTAL CARBON DIOXIDE 27.8 MMOL/L (24-32); eCRCL 91 ML/MIN; eGFR 83 ML/MIN
[2023-04-02] MEDS: pantoprazole 40mg Tablet.DR PO SCH (07:32)
[2023-04-02] MEDS: furosemide 40mg/4ml inj IV SCH ×2 (08:08→20:00)
[2023-04-02] MEDS: mupirocin 2% nasal ointment 1gm UD NS SCH (08:08)
[2023-04-02] MEDS: folic acid 1mg tablet PO SCH (08:09)
[2023-04-02] MEDS: potassium Cl 20 mEq SR tablet PO SCH (08:09)
[2023-04-02] MEDS: spironolactone 25 MG tablet PO SCH ×2 (08:09→20:00)
[2023-04-02] MEDS: thiamine 100mg tablet PO SCH (08:09)
[2023-04-02] MEDS: aspirin 81mg tab.chew PO SCH (08:10)
[2023-04-02] MEDS: metoprolol tartrate 25mg tablet PO SCH ×2 (08:10→19:40)
[2023-04-02] MEDS: sennosides/docusate sodium tablet PO SCH ×2 (08:10→19:40)
[2023-04-02] MEDS: PYRIDOXINE HCL (VITAMIN B6) 250 MG TABLET PO SCH (08:10)
[2023-04-02] MEDS ORDERED: potassium Cl 40MEQ/270ML bag 250 ML IV PRN (10:40)
[2023-04-02] MEDS ORDERED: potassium Cl 40MEQ/1/2NS 520ml 520 ML IV PRN (10:40)
[2023-04-02] MEDS ORDERED: magnesium 2GM in 50ml NS 50 ML IV PRN (10:40)
[2023-04-02] MEDS ORDERED: potassium Cl 20mEq/100mL bag 100 ML IV PRN (10:40)
[2023-04-02] MEDS ORDERED: potassium Cl 20 mEq SR tablet PO PRN (10:40)
[2023-04-02] MEDS ORDERED: potassium CL 10mEq/100ml bag 100 ML IV PRN (10:40)
[2023-04-02] MEDS ORDERED: nitroGLYCERIN-Tridil 50MG/D5W 250 ML IV PRN (12:15)
[2023-04-02] MEDS ORDERED: nitroGLYCERIN-Tridil 50MG/D5W 250 ML IV ONE (12:16)
[2023-04-02 12:35] LABS: BASOPHILS % (AUTO) 0.2 % (0-1); EOSINOPHILS % (AUTO) 0 % (0-6); HEMATOCRIT 31.3 % (42.0-52.0); HEMOGLOBIN 10.3 g/dl (14.0-17.9); LYMPHOCYTES # (AUTO) 0.7 X10'3 (1.1-4.8); LYMPHOCYTES % (AUTO) 3.7 % (21-51); MEAN CORPUSCULAR HEMOGLOBIN 28.7 PG (27.0-31.0); MEAN CORPUSCULAR VOLUME 86.8 FL (78-98); MEAN PLATELET VOLUME 10.3 FL (7.4-10.4); MONOCYTES # (AUTO) 1.8 X10'3 (0-0.9); MONOCYTES % (AUTO) 9.7 % (2-12); NEUTROPHILS # (AUTO) 16.2 X10'3 (1.8-7.7); NEUTROPHILS % (AUTO) 86.4 % (42-75); PLATELET COUNT 146 X10'3 (140-440); RED BLOOD COUNT 3.61 X10'6 (4.70-6.10); WHITE BLOOD COUNT 18.7 X10'3 (4.5-11.0)
[2023-04-02 12:43] LABS: APTT 27 SECONDS (22-32); FIBRINOGEN 332 MG/DL (177-424); INR 1.2 INR
[2023-04-02] MEDS ORDERED: MESSAGE TO PHARMACY PO ONE (15:05)
[2023-04-02] MEDS ORDERED: insulin Lispro (HumaLOG) vial - multi-dose SQ SCH (15:05)
[2023-04-02] MEDS ORDERED: glucagon, human recombinant 1mg kit SUBCUT PRN (15:05)
[2023-04-02] MEDS ORDERED: dextrose 50%-water 50ml dispensing syringe IV PRN ×2 (15:05)
[2023-04-02] MEDS ORDERED: DEXTROSE 15 GM of carb/4 tabs (each vial/BOTTLE has 4 tablets) PO PRN ×2 (15:05)
[2023-04-02] MEDS: LIDOcaine 5% patch TP SCH (17:21)
[2023-04-02] MEDS: JUVEN Smoothie Arginine/Glut./Ca2+Bmb (Juven 19.3pkt) 240ml cup PO SCH (17:48)
[2023-04-02 18:16] LABS: BASOPHILS % (AUTO) 0.1 % (0-1); EOSINOPHILS % (AUTO) 0 % (0-6); HEMATOCRIT 27.1 % (42.0-52.0); HEMOGLOBIN 8.8 g/dl (14.0-17.9); LYMPHOCYTES # (AUTO) 1.1 X10'3 (1.1-4.8); LYMPHOCYTES % (AUTO) 5.4 % (21-51); MEAN CORPUSCULAR HEMOGLOBIN 28.2 PG (27.0-31.0); MEAN CORPUSCULAR HGB CONC 32.6 g/dL (33.0-36.5); MEAN CORPUSCULAR VOLUME 86.4 FL (78-98); MEAN PLATELET VOLUME 10.3 FL (7.4-10.4); MONOCYTES # (AUTO) 2.2 X10'3 (0-0.9); MONOCYTES % (AUTO) 11.1 % (2-12); NEUTROPHILS # (AUTO) 16.6 X10'3 (1.8-7.7); NEUTROPHILS % (AUTO) 83.4 % (42-75); PLATELET COUNT 142 X10'3 (140-440); RED BLOOD COUNT 3.13 X10'6 (4.70-6.10); WHITE BLOOD COUNT 19.9 X10'3 (4.5-11.0)
[2023-04-02] MEDS: magnesium Cl slow-release 64mg tablet PO SCH (19:40)
[2023-04-02] MEDS: insulin glargine (Lantus) pen - multi-dose SQ SCH (21:00)
[2023-04-03] VITALS (43 sets, daily range): BP systolic 81–300; BP diastolic 36–115; PULSE 60–114; RESP 14–39; TEMP 98–99.4; O2SAT 90–100
[2023-04-03] MEDS: ipratropium/albuterol 3ml nebule NEB SCH ×4 (02:43→20:16)
[2023-04-03 03:04] LABS: BASOPHILS % (AUTO) 0.1 % (0-1); EOSINOPHILS % (AUTO) 0 % (0-6); HEMATOCRIT 23.9 % (42.0-52.0); LYMPHOCYTES # (AUTO) 1.4 X10'3 (1.1-4.8); LYMPHOCYTES % (AUTO) 7.5 % (21-51); MEAN CORPUSCULAR HEMOGLOBIN 28.9 PG (27.0-31.0); MEAN CORPUSCULAR HGB CONC 33.4 g/dL (33.0-36.5); MEAN CORPUSCULAR VOLUME 86.7 FL (78-98); MEAN PLATELET VOLUME 10.2 FL (7.4-10.4); MONOCYTES # (AUTO) 2.4 X10'3 (0-0.9); MONOCYTES % (AUTO) 12.8 % (2-12); NEUTROPHILS # (AUTO) 14.9 X10'3 (1.8-7.7); NEUTROPHILS % (AUTO) 79.6 % (42-75); PLATELET COUNT 153 X10'3 (140-440); RED BLOOD COUNT 2.76 X10'6 (4.70-6.10); RED CELL DISTRIBUTION WIDTH 15.1 % (11.5-14.5); WHITE BLOOD COUNT 18.7 X10'3 (4.5-11.0)
[2023-04-03 03:24] LABS: ALANINE AMINOTRANSFERASE 17 U/L (12-78); ALBUMIN 3.3 G/DL (3.4-5.0); ALBUMIN/GLOBULIN RATIO 1.1 (1.1-1.5); ALKALINE PHOSPHATASE 118 IU/L (46-116); ANION GAP 5 (8-16); ASPARTATE AMINO TRANSFERASE 23 U/L (10-37); BILIRUBIN,TOTAL 2.9 MG/DL (0.1-1.0); BLOOD UREA NITROGEN 50 MG/DL (7-18); BUN/CREATININE RATIO 44.6 (10.0-20.0); CALCIUM 8.8 MG/DL (8.5-10.1); CHLORIDE 94 MMOL/L (99-107); CREATININE 1.12 MG/DL (0.60-1.10); GLUCOSE 169 MG/DL (70-104); MAGNESIUM 2.1 MG/DL (1.5-2.4); POTASSIUM 5.6 MMOL/L (3.5-5.1); SODIUM 127 MMOL/L (135-145); TOTAL CARBON DIOXIDE 28.3 MMOL/L (24-32); TOTAL PROTEIN 6.2 G/DL (6.4-8.2); eCRCL 77 ML/MIN; eGFR 69 ML/MIN
[2023-04-03] MEDS: oxyCODONE IR 5mg (immed. release) tablet PO PRN ×2 (03:45→19:49)
[2023-04-03 04:54] LABS: FIBRINOGEN 277 MG/DL (177-424); INR 1.3 INR; PROTHROMBIN TIME 13.6 SECONDS (9.0-12.0)
[2023-04-03] MEDS ORDERED: ceFAZolin 1000mg inj ONE ×4 (07:09→08:36)
[2023-04-03] MEDS ORDERED: BUPIVAcaine/PF 2.5mg/ml (0.25%) 10ml vial ONE (07:10)
[2023-04-03] MEDS ORDERED: BUPIVACAINE liposomal/PF 13.3 MG/ML vial IM ONE (07:10)
[2023-04-03] MEDS ORDERED: vancomycin 1,000mg inj ONE (07:10)
[2023-04-03] MEDS: JUVEN Smoothie Arginine/Glut./Ca2+Bmb (Juven 19.3pkt) 240ml cup PO SCH ×2 (07:30→17:30)
[2023-04-03] MEDS: pantoprazole 40mg Tablet.DR PO SCH (07:30)
[2023-04-03] MEDS ORDERED: epiNEPHrine 1 mg/ml inj ONE (07:43)
[2023-04-03] MEDS: budesonide 0.5mg/2ml UD nebule IH PRN (07:58)
[2023-04-03] MEDS: folic acid 1mg tablet PO SCH (08:00)
[2023-04-03] MEDS: spironolactone 25 MG tablet PO SCH ×2 (08:00→19:46)
[2023-04-03] MEDS: thiamine 100mg tablet PO SCH (08:00)
[2023-04-03] MEDS: LIDOcaine 5% patch TP SCH ×2 (08:00→19:48)
[2023-04-03] MEDS: magnesium Cl slow-release 64mg tablet PO SCH ×2 (08:00→19:47)
[2023-04-03] MEDS: furosemide 40mg/4ml inj IV SCH ×2 (08:00→20:00)
[2023-04-03] MEDS: sennosides/docusate sodium tablet PO SCH ×2 (08:00→19:47)
[2023-04-03] MEDS: PYRIDOXINE HCL (VITAMIN B6) 250 MG TABLET PO SCH (08:00)
[2023-04-03] MEDS: metoprolol tartrate 25mg tablet PO SCH ×2 (08:00→19:47)
[2023-04-03] MEDS ORDERED: midazolam 1 mg/ML 2ml injection ONE (08:21)
[2023-04-03] MEDS ORDERED: SUfentanil 50mcg/ml 1ml amp IV ONE (08:21)
[2023-04-03] MEDS ORDERED: rocuronium 10mg/ml inj IV ONE ×3 (08:21→08:32)
[2023-04-03] MEDS ORDERED: propofol inj 20 ML IV ONE (08:21)
[2023-04-03] MEDS ORDERED: NORepinephrine 1 mg/ml inj IV ONE (08:29)
[2023-04-03] MEDS ORDERED: sevoflurane 250ml liquid IH ONE (08:32)
[2023-04-03] MEDS ORDERED: nitroGLYCERIN in D5W 50mg/250ml (Tridil) infusion IV ONE (08:32)
[2023-04-03 09:39] LABS: ABG BASE EXCESS 1.3 mmol/L (-2.0-2.0); ABG HCO3 26.1 mmol/L (22.0-26.0); ABG OXYGEN SATURATION 99.5 % (94-97); ABG PCO2 42.4 mmHg (35.0-48.0); ABG PH 7.407 (7.340-7.440); ABG PO2 189.7 mmHg (75.0-100.0); CL (ABG) 93 mmol/L (99-107); FHHb 0.5 % (0.0-5.0); FMetHb 0.3 % (0.0-1.5); FO2Hb 98.2 % (94-97); GLUCOSE (ABG) 163 mg/dl (70-104); IONIZED CA (ABG) 1.18 mmol/L (1.10-1.30); K (ABG) 5.1 mmol/L (3.5-5.1); TOTAL HEMOGLOBIN 7.7 G/dl (14.0-17.9)
[2023-04-03] MEDS ORDERED: morphine 4 MG/ML inj SYRINge IV ONE (12:09)
[2023-04-03] MEDS ORDERED: propofol 1000mg/100ml bottle 100 ML IV ONE (12:09)
[2023-04-03] MEDS ORDERED: metoprolol tartrate 1mg/ml inj IV ONE (12:54)
[2023-04-03] MEDS: niCARDipine-NS 40mg/200ml IVPB 200 ML IV SCH ×2 (13:10→18:48)
[2023-04-03] MEDS ORDERED: propofol 1000mg/100ml bottle 100 ML IV SCH ×2 (13:55→13:59)
[2023-04-03] MEDS: morphine 2 MG/ML inj. syringe IV PRN (15:51)
[2023-04-03] MEDS: dexmedetomidin/NS 400mcg/100ml 100 ML IV SCH ×2 (16:05→23:07)
[2023-04-03 16:11] LABS: ABG BASE EXCESS 2.6 mmol/L (-2.0-2.0); ABG HCO3 25.4 mmol/L (22.0-26.0); ABG OXYGEN SATURATION 92.7 % (94-97); ABG PCO2 (T) 31.3 mmHg (35.0-48.0); ABG PH (T) 7.527 (7.340-7.440); ABG PO2 (T) 61.7 mmHg (75.0-100.0); FCOHb 1.3 % (0.0-3.9); FHHb 7.2 % (0.0-5.0); FMetHb 0.3 % (0.0-1.5); FO2Hb 91.2 % (94-97); PEEP 5 cm H2O; TOTAL HEMOGLOBIN 7.6 G/dl (14.0-17.9)
[2023-04-03 16:36] LABS: BASOPHILS # (AUTO) 0.1 X10'3 (0-0.2); EOSINOPHILS # (AUTO) 0.1 X10'3 (0-0.9); EOSINOPHILS % (AUTO) 0.4 % (0-6); LYMPHOCYTES # (AUTO) 0.8 X10'3 (1.1-4.8); LYMPHOCYTES % (AUTO) 5.7 % (21-51); MEAN CORPUSCULAR HEMOGLOBIN 28.5 PG (27.0-31.0); MEAN CORPUSCULAR HGB CONC 33.5 g/dL (33.0-36.5); MEAN CORPUSCULAR VOLUME 85.1 FL (78-98); MEAN PLATELET VOLUME 9.8 FL (7.4-10.4); MONOCYTES # (AUTO) 1.8 X10'3 (0-0.9); MONOCYTES % (AUTO) 12.1 % (2-12); NEUTROPHILS % (AUTO) 80.8 % (42-75); PLATELET COUNT 137 X10'3 (140-440); RED BLOOD COUNT 2.39 X10'6 (4.70-6.10); RED CELL DISTRIBUTION WIDTH 14.6 % (11.5-14.5); WHITE BLOOD COUNT 14.8 X10'3 (4.5-11.0)
[2023-04-03 16:38] LABS: HEMATOCRIT 20.3 % (42.0-52.0); HEMOGLOBIN 6.8 g/dl (14.0-17.9)
[2023-04-03] MEDS ORDERED: furosemide 40mg/4ml inj IV ONE (16:50)
[2023-04-03 16:51] LABS: ALANINE AMINOTRANSFERASE 16 U/L (12-78); ALBUMIN 2.8 G/DL (3.4-5.0); ALBUMIN/GLOBULIN RATIO 1.2 (1.1-1.5); ALKALINE PHOSPHATASE 90 IU/L (46-116); ANION GAP 7 (8-16); ASPARTATE AMINO TRANSFERASE 25 U/L (10-37); BILIRUBIN,DIRECT 1.9 MG/DL (0-0.3); BILIRUBIN,TOTAL 3.1 MG/DL (0.1-1.0); BLOOD UREA NITROGEN 48 MG/DL (7-18); BUN/CREATININE RATIO 51.1 (10.0-20.0); CALCIUM 8.2 MG/DL (8.5-10.1); CHLORIDE 95 MMOL/L (99-107); CREATININE 0.94 MG/DL (0.60-1.10); GLUCOSE 156 MG/DL (70-104); POTASSIUM 5.1 MMOL/L (3.5-5.1); SODIUM 126 MMOL/L (135-145); TOTAL CARBON DIOXIDE 24.2 MMOL/L (24-32); TOTAL PROTEIN 5.2 G/DL (6.4-8.2); eCRCL 92 ML/MIN; eGFR 84 ML/MIN
[2023-04-03] MEDS: insulin glargine (Lantus) pen - multi-dose SQ SCH (21:00)
[2023-04-04] VITALS (30 sets, daily range): BP systolic 89–135; BP diastolic 37–67; PULSE 55–76; RESP 10–27; O2SAT 90–100
[2023-04-04 00:12] LABS: HEMATOCRIT 23.6 % (42.0-52.0); HEMOGLOBIN 8.1 g/dl (14.0-17.9); MEAN CORPUSCULAR HGB CONC 34.1 g/dL (33.0-36.5); PLATELET COUNT 84 X10'3 (140-440); RED BLOOD COUNT 2.78 X10'6 (4.70-6.10); RED CELL DISTRIBUTION WIDTH 14.6 % (11.5-14.5); WHITE BLOOD COUNT 11.4 X10'3 (4.5-11.0)
[2023-04-04] MEDS: oxyCODONE IR 5mg (immed. release) tablet PO PRN ×5 (01:05→20:40)
[2023-04-04] MEDS: ipratropium/albuterol 3ml nebule NEB SCH ×4 (03:11→20:41)
[2023-04-04] MEDS: morphine 2 MG/ML inj. syringe IV PRN ×4 (03:19→23:26)
[2023-04-04 03:42] LABS: ALANINE AMINOTRANSFERASE 13 U/L (12-78); ALBUMIN 2.7 G/DL (3.4-5.0); ALKALINE PHOSPHATASE 93 IU/L (46-116); ANION GAP 5 (8-16); ASPARTATE AMINO TRANSFERASE 21 U/L (10-37); BILIRUBIN,TOTAL 4.3 MG/DL (0.1-1.0); BLOOD UREA NITROGEN 43 MG/DL (7-18); CALCIUM 8.2 MG/DL (8.5-10.1); CHLORIDE 96 MMOL/L (99-107); CREATININE 0.86 MG/DL (0.60-1.10); GLUCOSE 130 MG/DL (70-104); MAGNESIUM 1.9 MG/DL (1.5-2.4); POTASSIUM 4.8 MMOL/L (3.5-5.1); SODIUM 127 MMOL/L (135-145); TOTAL CARBON DIOXIDE 25.8 MMOL/L (24-32); eCRCL 100 ML/MIN; eGFR > 90 ML/MIN
[2023-04-04 03:44] LABS: ALBUMIN/GLOBULIN RATIO 1.1 (1.1-1.5); TOTAL PROTEIN 5.1 G/DL (6.4-8.2); TRIGLYCERIDES 68 MG/DL (20-135)
[2023-04-04 04:15] LABS: BASOPHILS % (AUTO) 0.1 % (0-1); EOSINOPHILS % (AUTO) 0 % (0-6); HEMATOCRIT 24.4 % (42.0-52.0); HEMOGLOBIN 8.2 g/dl (14.0-17.9); LYMPHOCYTES # (AUTO) 1.2 X10'3 (1.1-4.8); LYMPHOCYTES % (AUTO) 12.1 % (21-51); MEAN CORPUSCULAR HEMOGLOBIN 29.5 PG (27.0-31.0); MEAN CORPUSCULAR HGB CONC 33.6 g/dL (33.0-36.5); MEAN CORPUSCULAR VOLUME 87.9 FL (78-98); MEAN PLATELET VOLUME 10.8 FL (7.4-10.4); MONOCYTES % (AUTO) 10.9 % (2-12); NEUTROPHILS # (AUTO) 7.3 X10'3 (1.8-7.7); NEUTROPHILS % (AUTO) 76.9 % (42-75); PLATELET COUNT 85 X10'3 (140-440); RED BLOOD COUNT 2.78 X10'6 (4.70-6.10); RED CELL DISTRIBUTION WIDTH 14.7 % (11.5-14.5); WHITE BLOOD COUNT 9.5 X10'3 (4.5-11.0)
[2023-04-04] MEDS: magnesium 4gm in 100ml NS 100 ML IV PRN (04:28)
[2023-04-04] MEDS: niCARDipine-NS 40mg/200ml IVPB 200 ML IV SCH (05:00)
[2023-04-04] MEDS: JUVEN Smoothie Arginine/Glut./Ca2+Bmb (Juven 19.3pkt) 240ml cup PO SCH ×2 (07:30→18:11)
[2023-04-04] MEDS: furosemide 40mg/4ml inj IV SCH ×2 (07:42→20:42)
[2023-04-04] MEDS: thiamine 100mg tablet PO SCH (07:43)
[2023-04-04] MEDS: PYRIDOXINE HCL (VITAMIN B6) 250 MG TABLET PO SCH (07:43)
[2023-04-04] MEDS: magnesium Cl slow-release 64mg tablet PO SCH ×2 (07:43→20:40)
[2023-04-04] MEDS: sennosides/docusate sodium tablet PO SCH ×2 (07:43→20:40)
[2023-04-04] MEDS: pantoprazole 40mg Tablet.DR PO SCH (07:43)
[2023-04-04] MEDS: folic acid 1mg tablet PO SCH (07:43)
[2023-04-04] MEDS: metoprolol tartrate 25mg tablet PO SCH ×2 (07:43→20:40)
[2023-04-04 09:21] LABS: LARGE PLATELETS FEW; PLATELET ESTIMATE NORMAL; POIKILOCYTOSIS FEW; POLYCHROMASIA 2+
[2023-04-04] MEDS: spironolactone 25 MG tablet PO SCH ×2 (09:51→20:41)
[2023-04-04] MEDS ORDERED: PYRIDOXINE HCL (VITAMIN B6) 250 MG TABLET PO SCH (10:55)
[2023-04-04] MEDS: lisinopril 10 MG tablet PO SCH (10:55)
[2023-04-04] MEDS ORDERED: potassium Cl 20 mEq SR tablet PO PRN (11:25)
[2023-04-04] MEDS: metoclopramide 5 mg/ml inj IV SCH ×3 (12:09→20:41)
[2023-04-04] MEDS: albumin (human) 25% 100 ML IV solution IV SCH ×2 (12:10→20:42)
[2023-04-04] MEDS: LIDOcaine 5% patch TP SCH (19:25)
[2023-04-04] MEDS: iron polysaccharide complex 150mg capsule PO SCH (20:40)
[2023-04-04] MEDS: insulin glargine (Lantus) pen - multi-dose SQ SCH (21:00)
[2023-04-05] VITALS (28 sets, daily range): BP systolic 102–154; BP diastolic 47–94; PULSE 54–69; RESP 10–21; TEMP 98; O2SAT 89–100
[2023-04-05] MEDS: oxyCODONE IR 5mg (immed. release) tablet PO PRN ×6 (00:48→22:36)
[2023-04-05 01:09] LABS: BASOPHILS % (AUTO) 0.2 % (0-1); EOSINOPHILS % (AUTO) 0.2 % (0-6); HEMATOCRIT 22.6 % (42.0-52.0); HEMOGLOBIN 7.7 g/dl (14.0-17.9); LYMPHOCYTES # (AUTO) 1.1 X10'3 (1.1-4.8); MEAN CORPUSCULAR HEMOGLOBIN 29.6 PG (27.0-31.0); MEAN CORPUSCULAR HGB CONC 34.2 g/dL (33.0-36.5); MEAN CORPUSCULAR VOLUME 86.6 FL (78-98); MEAN PLATELET VOLUME 9.2 FL (7.4-10.4); MONOCYTES # (AUTO) 1.1 X10'3 (0-0.9); MONOCYTES % (AUTO) 11.5 % (2-12); NEUTROPHILS # (AUTO) 7.3 X10'3 (1.8-7.7); NEUTROPHILS % (AUTO) 77.1 % (42-75); PLATELET COUNT 93 X10'3 (140-440); RED BLOOD COUNT 2.61 X10'6 (4.70-6.10); RED CELL DISTRIBUTION WIDTH 14.6 % (11.5-14.5); WHITE BLOOD COUNT 9.5 X10'3 (4.5-11.0)
[2023-04-05 01:19] LABS: ALANINE AMINOTRANSFERASE 18 U/L (12-78); ALBUMIN 3.2 G/DL (3.4-5.0); ALBUMIN/GLOBULIN RATIO 1.2 (1.1-1.5); ALKALINE PHOSPHATASE 174 IU/L (46-116); ANION GAP 4 (8-16); ASPARTATE AMINO TRANSFERASE 24 U/L (10-37); BILIRUBIN,TOTAL 2.8 MG/DL (0.1-1.0); BLOOD UREA NITROGEN 30 MG/DL (7-18); BUN/CREATININE RATIO 39.5 (10.0-20.0); CALCIUM 8.5 MG/DL (8.5-10.1); CHLORIDE 98 MMOL/L (99-107); CREATININE 0.76 MG/DL (0.60-1.10); GLUCOSE 126 MG/DL (70-104); POTASSIUM 4.1 MMOL/L (3.5-5.1); SODIUM 132 MMOL/L (135-145); TOTAL CARBON DIOXIDE 30.4 MMOL/L (24-32); TOTAL PROTEIN 5.9 G/DL (6.4-8.2); eCRCL 114 ML/MIN; eGFR > 90 ML/MIN
[2023-04-05] MEDS: potassium Cl 20 mEq SR tablet PO PRN (01:33)
[2023-04-05] MEDS: metoclopramide 5 mg/ml inj IV SCH ×4 (01:33→20:26)
[2023-04-05] MEDS: magnesium 4gm in 100ml NS 100 ML IV PRN (01:34)
[2023-04-05] MEDS: ipratropium/albuterol 3ml nebule NEB SCH ×4 (03:00→20:20)
[2023-04-05] MEDS: morphine 2 MG/ML inj. syringe IV PRN ×3 (07:48→16:40)
[2023-04-05] MEDS: pantoprazole 40mg Tablet.DR PO SCH (07:49)
[2023-04-05] MEDS: metoprolol tartrate 25mg tablet PO SCH ×2 (07:49→20:23)
[2023-04-05] MEDS: magnesium Cl slow-release 64mg tablet PO SCH ×2 (07:52→20:24)
[2023-04-05] MEDS: folic acid 1mg tablet PO SCH ×2 (07:52→08:55)
[2023-04-05] MEDS: PYRIDOXINE HCL (VITAMIN B6) 250 MG TABLET PO SCH (07:52)
[2023-04-05] MEDS: lisinopril 10 MG tablet PO SCH (07:52)
[2023-04-05] MEDS: sennosides/docusate sodium tablet PO SCH ×2 (07:52→20:23)
[2023-04-05] MEDS: thiamine 100mg tablet PO SCH (07:52)
[2023-04-05] MEDS: albumin (human) 25% 100 ML IV solution IV SCH ×2 (07:54→20:27)
[2023-04-05] MEDS: furosemide 40mg/4ml inj IV SCH ×2 (07:54→20:26)
[2023-04-05] MEDS: iron polysaccharide complex 150mg capsule PO SCH ×2 (07:57→20:23)
[2023-04-05] MEDS: spironolactone 25 MG tablet PO SCH ×2 (07:58→20:00)
[2023-04-05] MEDS: JUVEN Smoothie Arginine/Glut./Ca2+Bmb (Juven 19.3pkt) 240ml cup PO SCH ×2 (08:04→17:30)
[2023-04-05 08:39] LABS: ACT @ 1.70 U 361 SEC (193-297); ACT @ 2.84 U 561 SEC (260-420); BASELINE ACT 145 SEC (101-148)
[2023-04-05] MEDS: sodium ferric gluc complex inj 125 MG in normal saline 100ml IV soln 100 ML IV SCH (09:40)
[2023-04-05] MEDS: LIDOcaine 5% patch TP SCH (20:25)
[2023-04-05] MEDS: insulin glargine (Lantus) pen - multi-dose SQ SCH (21:00)
[2023-04-06] VITALS (17 sets, daily range): BP systolic 97–160; BP diastolic 62–73; PULSE 61–79; RESP 15–22; TEMP 97.8–98.9; O2SAT 93–99
[2023-04-06] MEDS: metoclopramide 5 mg/ml inj IV SCH (01:56)
[2023-04-06] MEDS: morphine 2 MG/ML inj. syringe IV PRN ×4 (01:56→23:21)
[2023-04-06] MEDS: ipratropium/albuterol 3ml nebule NEB SCH ×4 (02:39→21:11)
[2023-04-06] MEDS: oxyCODONE IR 5mg (immed. release) tablet PO PRN ×4 (02:56→20:57)
[2023-04-06 06:22] LABS: ALANINE AMINOTRANSFERASE 19 U/L (12-78); ALBUMIN 2.9 G/DL (3.4-5.0); ALBUMIN/GLOBULIN RATIO 1.1 (1.1-1.5); ALKALINE PHOSPHATASE 226 IU/L (46-116); ANION GAP 3 (8-16); ASPARTATE AMINO TRANSFERASE 31 U/L (10-37); BILIRUBIN,TOTAL 2.3 MG/DL (0.1-1.0); BLOOD UREA NITROGEN 18 MG/DL (7-18); BUN/CREATININE RATIO 28.1 (10.0-20.0); CALCIUM 8.3 MG/DL (8.5-10.1); CHLORIDE 99 MMOL/L (99-107); CREATININE 0.64 MG/DL (0.60-1.10); GLUCOSE 87 MG/DL (70-104); POTASSIUM 4.1 MMOL/L (3.5-5.1); SODIUM 135 MMOL/L (135-145); TOTAL CARBON DIOXIDE 33.4 MMOL/L (24-32); TOTAL PROTEIN 5.6 G/DL (6.4-8.2); eCRCL 135 ML/MIN; eGFR > 90 ML/MIN
[2023-04-06] MEDS: pantoprazole 40mg Tablet.DR PO SCH (07:27)
[2023-04-06] MEDS: JUVEN Smoothie Arginine/Glut./Ca2+Bmb (Juven 19.3pkt) 240ml cup PO SCH ×2 (07:30→17:31)
[2023-04-06] MEDS: spironolactone 25 MG tablet PO SCH ×2 (08:00→20:59)
[2023-04-06] MEDS: PYRIDOXINE HCL (VITAMIN B6) 250 MG TABLET PO SCH (08:39)
[2023-04-06] MEDS: magnesium Cl slow-release 64mg tablet PO SCH ×2 (08:40→20:58)
[2023-04-06] MEDS: iron polysaccharide complex 150mg capsule PO SCH ×2 (08:40→20:58)
[2023-04-06] MEDS: lisinopril 10 MG tablet PO SCH (08:43)
[2023-04-06] MEDS: metoprolol tartrate 25mg tablet PO SCH ×2 (08:45→20:58)
[2023-04-06] MEDS: folic acid 1mg tablet PO SCH (08:45)
[2023-04-06] MEDS: sennosides/docusate sodium tablet PO SCH ×2 (08:45→20:58)
[2023-04-06] MEDS: furosemide 40mg/4ml inj IV SCH ×2 (08:46→20:59)
[2023-04-06] MEDS: thiamine 100mg tablet PO SCH (08:46)
[2023-04-06] MEDS: sodium ferric gluc complex inj 125 MG in normal saline 100ml IV soln 100 ML IV SCH (10:23)
[2023-04-06] MEDS: LIDOcaine 5% patch TP SCH (20:59)
[2023-04-07] VITALS (14 sets, daily range): BP systolic 107–152; BP diastolic 52–72; PULSE 63–82; RESP 15–20; TEMP 97.9–98.8; O2SAT 92–98
[2023-04-07] MEDS: oxyCODONE IR 5mg (immed. release) tablet PO PRN ×4 (02:09→20:58)
[2023-04-07] MEDS: methyl salicylate/menthol cream 57gm TP PRN ×2 (02:23→21:00)
[2023-04-07] MEDS: ipratropium/albuterol 3ml nebule NEB SCH ×4 (03:13→20:32)
[2023-04-07 05:49] LABS: BASOPHILS % (AUTO) 0.3 % (0-1); EOSINOPHILS # (AUTO) 0.6 X10'3 (0-0.9); EOSINOPHILS % (AUTO) 5.5 % (0-6); HEMOGLOBIN 8.3 g/dl (14.0-17.9); LYMPHOCYTES # (AUTO) 1.8 X10'3 (1.1-4.8); LYMPHOCYTES % (AUTO) 15.6 % (21-51); MEAN CORPUSCULAR HEMOGLOBIN 29.4 PG (27.0-31.0); MEAN CORPUSCULAR HGB CONC 33.2 g/dL (33.0-36.5); MEAN CORPUSCULAR VOLUME 88.5 FL (78-98); MEAN PLATELET VOLUME 7.8 FL (7.4-10.4); MONOCYTES # (AUTO) 1.1 X10'3 (0-0.9); MONOCYTES % (AUTO) 9.5 % (2-12); NEUTROPHILS # (AUTO) 8.1 X10'3 (1.8-7.7); NEUTROPHILS % (AUTO) 69.1 % (42-75); PLATELET COUNT 159 X10'3 (140-440); RED BLOOD COUNT 2.82 X10'6 (4.70-6.10); RED CELL DISTRIBUTION WIDTH 14.9 % (11.5-14.5); WHITE BLOOD COUNT 11.7 X10'3 (4.5-11.0)
[2023-04-07 06:21] LABS: ALANINE AMINOTRANSFERASE 22 U/L (12-78); ALBUMIN 2.9 G/DL (3.4-5.0); ALBUMIN/GLOBULIN RATIO 1.1 (1.1-1.5); ALKALINE PHOSPHATASE 228 IU/L (46-116); ANION GAP 4 (8-16); ASPARTATE AMINO TRANSFERASE 27 U/L (10-37); BILIRUBIN,TOTAL 2.1 MG/DL (0.1-1.0); BLOOD UREA NITROGEN 16 MG/DL (7-18); BUN/CREATININE RATIO 25.8 (10.0-20.0); CALCIUM 8.6 MG/DL (8.5-10.1); CHLORIDE 100 MMOL/L (99-107); CREATININE 0.62 MG/DL (0.60-1.10); GLUCOSE 98 MG/DL (70-104); POTASSIUM 3.6 MMOL/L (3.5-5.1); SODIUM 134 MMOL/L (135-145); TOTAL CARBON DIOXIDE 29.7 MMOL/L (24-32); TOTAL PROTEIN 5.5 G/DL (6.4-8.2); eCRCL 139 ML/MIN; eGFR > 90 ML/MIN
[2023-04-07 07:09] LABS: TOTAL CELLS COUNTED 100
[2023-04-07 07:10] LABS: PLATELET ESTIMATE NORMAL; POLYCHROMASIA FEW
[2023-04-07 07:11] LABS: BURR CELLS FEW; POIKILOCYTOSIS FEW; TARGET CELLS FEW
[2023-04-07] MEDS: JUVEN Smoothie Arginine/Glut./Ca2+Bmb (Juven 19.3pkt) 240ml cup PO SCH ×2 (07:30→17:48)
[2023-04-07] MEDS: iron polysaccharide complex 150mg capsule PO SCH ×2 (07:31→20:57)
[2023-04-07] MEDS: magnesium Cl slow-release 64mg tablet PO SCH ×2 (07:31→20:57)
[2023-04-07] MEDS: furosemide 40mg/4ml inj IV SCH (07:31)
[2023-04-07] MEDS: pantoprazole 40mg Tablet.DR PO SCH (07:32)
[2023-04-07] MEDS: lisinopril 10 MG tablet PO SCH (07:32)
[2023-04-07] MEDS: folic acid 1mg tablet PO SCH (07:32)
[2023-04-07] MEDS: thiamine 100mg tablet PO SCH (07:33)
[2023-04-07] MEDS: sennosides/docusate sodium tablet PO SCH ×2 (07:33→20:57)
[2023-04-07] MEDS: PYRIDOXINE HCL (VITAMIN B6) 250 MG TABLET PO SCH (07:33)
[2023-04-07] MEDS: metoprolol tartrate 25mg tablet PO SCH ×2 (07:34→20:58)
[2023-04-07] MEDS: spironolactone 25 MG tablet PO SCH ×2 (07:35→21:00)
[2023-04-07] MEDS ORDERED: aspirin 81mg, enteric-coated 1 TAB TABLET.DR PO ONE (09:20)
[2023-04-07] MEDS: morphine 2 MG/ML inj. syringe IV PRN ×3 (10:52→23:56)
[2023-04-07] MEDS: sodium ferric gluc complex inj 125 MG in normal saline 100ml IV soln 100 ML IV SCH (11:18)
[2023-04-07] MEDS: potassium Cl 20 mEq SR tablet PO PRN (21:00)
[2023-04-07] MEDS: LIDOcaine 5% patch TP SCH (21:01)
[2023-04-08] VITALS (14 sets, daily range): BP systolic 92–121; BP diastolic 38–58; PULSE 68–98; RESP 13–21; TEMP 97.8–98.6; O2SAT 92–99
[2023-04-08] MEDS: ipratropium/albuterol 3ml nebule NEB SCH ×4 (02:34→19:36)
[2023-04-08] MEDS: oxyCODONE IR 5mg (immed. release) tablet PO PRN ×4 (02:53→20:37)
[2023-04-08] MEDS: JUVEN Smoothie Arginine/Glut./Ca2+Bmb (Juven 19.3pkt) 240ml cup PO SCH ×2 (07:30→17:53)
[2023-04-08] MEDS: magnesium Cl slow-release 64mg tablet PO SCH ×2 (07:32→20:36)
[2023-04-08] MEDS: pantoprazole 40mg Tablet.DR PO SCH (07:32)
[2023-04-08] MEDS: folic acid 1mg tablet PO SCH (07:32)
[2023-04-08] MEDS: thiamine 100mg tablet PO SCH (07:32)
[2023-04-08] MEDS: spironolactone 25 MG tablet PO SCH ×2 (07:32→20:36)
[2023-04-08] MEDS: lisinopril 10 MG tablet PO SCH (07:33)
[2023-04-08] MEDS: iron polysaccharide complex 150mg capsule PO SCH ×2 (07:33→20:36)
[2023-04-08] MEDS: sennosides/docusate sodium tablet PO SCH ×2 (07:33→20:36)
[2023-04-08] MEDS: PYRIDOXINE HCL (VITAMIN B6) 250 MG TABLET PO SCH (07:33)
[2023-04-08] MEDS: metoprolol tartrate 25mg tablet PO SCH ×2 (07:33→20:37)
[2023-04-08] MEDS: furosemide 40mg/4ml inj IV SCH (07:34)
[2023-04-08 07:38] LABS: BASOPHILS % (AUTO) 0.2 % (0-1); EOSINOPHILS # (AUTO) 0.7 X10'3 (0-0.9); EOSINOPHILS % (AUTO) 6.4 % (0-6); HEMATOCRIT 25.8 % (42.0-52.0); HEMOGLOBIN 8.7 g/dl (14.0-17.9); LYMPHOCYTES # (AUTO) 1.5 X10'3 (1.1-4.8); LYMPHOCYTES % (AUTO) 13.3 % (21-51); MEAN CORPUSCULAR HEMOGLOBIN 29.6 PG (27.0-31.0); MEAN CORPUSCULAR HGB CONC 33.7 g/dL (33.0-36.5); MEAN CORPUSCULAR VOLUME 87.8 FL (78-98); MEAN PLATELET VOLUME 7.6 FL (7.4-10.4); NEUTROPHILS # (AUTO) 7.9 X10'3 (1.8-7.7); NEUTROPHILS % (AUTO) 71.1 % (42-75); PLATELET COUNT 189 X10'3 (140-440); RED BLOOD COUNT 2.94 X10'6 (4.70-6.10); RED CELL DISTRIBUTION WIDTH 15.3 % (11.5-14.5); WHITE BLOOD COUNT 11.2 X10'3 (4.5-11.0)
[2023-04-08] MEDS: budesonide 0.5mg/2ml UD nebule IH PRN (08:01)
[2023-04-08] MEDS: aspirin 81mg, enteric-coated 1 TAB TABLET.DR PO SCH (09:00)
[2023-04-08 09:15] LABS: ALANINE AMINOTRANSFERASE 23 U/L (12-78); ALKALINE PHOSPHATASE 233 IU/L (46-116); ANION GAP 9 (8-16); ASPARTATE AMINO TRANSFERASE 26 U/L (10-37); BLOOD UREA NITROGEN 12 MG/DL (7-18); CALCIUM 8.7 MG/DL (8.5-10.1); CHLORIDE 98 MMOL/L (99-107); CREATININE 0.63 MG/DL (0.60-1.10); GLUCOSE 97 MG/DL (70-104); POTASSIUM 3.9 MMOL/L (3.5-5.1); SODIUM 133 MMOL/L (135-145); TOTAL CARBON DIOXIDE 25.9 MMOL/L (24-32); TOTAL PROTEIN 6.1 G/DL (6.4-8.2); eCRCL 137 ML/MIN; eGFR > 90 ML/MIN
[2023-04-08] MEDS: sodium ferric gluc complex inj 125 MG in normal saline 100ml IV soln 100 ML IV SCH (14:18)
[2023-04-08] MEDS: morphine 2 MG/ML inj. syringe IV PRN ×2 (15:35→23:11)
[2023-04-08] MEDS: LIDOcaine 5% patch TP SCH (20:39)
[2023-04-09] MEDS ORDERED: magnesium 2GM in 50ml NS 50 ML IV ONE (01:15)
[2023-04-09 02:00] VITALS: BP 101/47; PULSE 76; RESP 17; TEMP 98.1; O2SAT 95
[2023-04-09] MEDS: ipratropium/albuterol 3ml nebule NEB SCH ×2 (02:51→08:00)
[2023-04-09] MEDS: oxyCODONE IR 5mg (immed. release) tablet PO PRN ×2 (03:13→09:37)
[2023-04-09 06:00] VITALS: BP 125/48; PULSE 77; RESP 16; TEMP 98.3; O2SAT 98
[2023-04-09] MEDS: JUVEN Smoothie Arginine/Glut./Ca2+Bmb (Juven 19.3pkt) 240ml cup PO SCH (07:30)
[2023-04-09 07:52] LABS: BASOPHILS % (AUTO) 0.3 % (0-1); EOSINOPHILS # (AUTO) 0.6 X10'3 (0-0.9); EOSINOPHILS % (AUTO) 5.8 % (0-6); HEMATOCRIT 26.2 % (42.0-52.0); HEMOGLOBIN 8.7 g/dl (14.0-17.9); LYMPHOCYTES # (AUTO) 1.4 X10'3 (1.1-4.8); LYMPHOCYTES % (AUTO) 13.2 % (21-51); MEAN CORPUSCULAR HEMOGLOBIN 29.4 PG (27.0-31.0); MEAN CORPUSCULAR HGB CONC 33.2 g/dL (33.0-36.5); MEAN CORPUSCULAR VOLUME 88.5 FL (78-98); MEAN PLATELET VOLUME 7.4 FL (7.4-10.4); MONOCYTES # (AUTO) 0.9 X10'3 (0-0.9); MONOCYTES % (AUTO) 9.1 % (2-12); NEUTROPHILS # (AUTO) 7.4 X10'3 (1.8-7.7); NEUTROPHILS % (AUTO) 71.6 % (42-75); PLATELET COUNT 203 X10'3 (140-440); RED BLOOD COUNT 2.96 X10'6 (4.70-6.10); RED CELL DISTRIBUTION WIDTH 16.4 % (11.5-14.5); WHITE BLOOD COUNT 10.4 X10'3 (4.5-11.0)
[2023-04-09 08:00] VITALS: RESP 16; O2SAT 98
[2023-04-09] MEDS: sodium ferric gluc complex inj 125 MG in normal saline 100ml IV soln 100 ML IV SCH ×2 (08:00→08:21)
[2023-04-09 08:03] VITALS: PULSE 77; RESP 17; O2SAT 98
[2023-04-09 08:16] LABS: ALANINE AMINOTRANSFERASE 24 U/L (12-78); ALBUMIN/GLOBULIN RATIO 0.9 (1.1-1.5); ALKALINE PHOSPHATASE 227 IU/L (46-116); ANION GAP 6 (8-16); ASPARTATE AMINO TRANSFERASE 26 U/L (10-37); BILIRUBIN,TOTAL 2.2 MG/DL (0.1-1.0); BLOOD UREA NITROGEN 13 MG/DL (7-18); BUN/CREATININE RATIO 22.4 (10.0-20.0); CALCIUM 8.7 MG/DL (8.5-10.1); CHLORIDE 100 MMOL/L (99-107); CREATININE 0.58 MG/DL (0.60-1.10); GLUCOSE 92 MG/DL (70-104); SODIUM 133 MMOL/L (135-145); TOTAL CARBON DIOXIDE 27.2 MMOL/L (24-32); TOTAL PROTEIN 6.3 G/DL (6.4-8.2); eCRCL 149 ML/MIN; eGFR > 90 ML/MIN
[2023-04-09] MEDS: furosemide 40mg/4ml inj IV SCH (08:21)
[2023-04-09] MEDS: spironolactone 25 MG tablet PO SCH (08:31)
[2023-04-09] MEDS: PYRIDOXINE HCL (VITAMIN B6) 250 MG TABLET PO SCH (08:32)
[2023-04-09] MEDS: lisinopril 10 MG tablet PO SCH (08:32)
[2023-04-09] MEDS: iron polysaccharide complex 150mg capsule PO SCH (08:32)
[2023-04-09] MEDS: folic acid 1mg tablet PO SCH (08:32)
[2023-04-09] MEDS: metoprolol tartrate 25mg tablet PO SCH (08:32)
[2023-04-09] MEDS: sennosides/docusate sodium tablet PO SCH (08:32)
[2023-04-09] MEDS: aspirin 81mg, enteric-coated 1 TAB TABLET.DR PO SCH (08:33)
[2023-04-09] MEDS: magnesium Cl slow-release 64mg tablet PO SCH (08:33)
[2023-04-09] MEDS: pantoprazole 40mg Tablet.DR PO SCH (08:33)
[2023-04-09] MEDS: thiamine 100mg tablet PO SCH (08:33)
[2023-04-09 09:06] LABS: ANISOCYTOSIS 1+; PLATELET ESTIMATE NORMAL; TOTAL CELLS COUNTED 100
[2023-04-09 09:07] LABS: HYPOCHROMASIA 1+; POIKILOCYTOSIS FEW; POLYCHROMASIA FEW
[2023-04-09 11:00] VITALS: BP 117/36; PULSE 76; RESP 14; TEMP 98.7; O2SAT 98
[2023-04-09] MEDS ORDERED: FURO20TA4 PO (11:01)
[2023-04-09] MEDS ORDERED: POTA8CAP20 PO (11:01)
[2023-04-09] MEDS ORDERED: LOP25T PO (11:01)
[2023-04-09] MEDS ORDERED: OXYC-658 PO (11:01)
[2023-04-09] MEDS ORDERED: ASPI-1071 PO (11:01)
[2023-04-09] MEDS ORDERED: LISI10TA27 PO (11:01)
[2023-04-09] MEDS ORDERED: furosemide 20MG tablet PO SCH (20:00)
[2023-04-09] MEDS ORDERED: iron polysaccharide complex 150mg capsule PO SCH (20:00)
== END 2023-04-09 13:10 | disposition home health service (06) | DRG 219 ==
LOC: ER 12:07 → ED HOLD 14:44 → PCU 3S 03-24 07:43 → ICU 2S 03-31 13:34 → PCU 3S 04-05 23:20
PROVIDERS: ADMIT Internal Medicine; ATTEND Internal Medicine
PROC: 02L70CK Occlusion of Left Atrial Appendage with Extraluminal Device, Open Approach (ICD-10-PCS; 2023-03-31)
PROC: B24BZZ4 Ultrasonography of Heart with Aorta, Transesophageal (ICD-10-PCS; 2023-03-31)
PROC: 03HY32Z Insertion of Monitoring Device into Upper Artery, Percutaneous Approach (ICD-10-PCS; 2023-03-31)
PROC: 30233K1 Transfusion of Nonautologous Frozen Plasma into Peripheral Vein, Percutaneous Approach (ICD-10-PCS; 2023-03-31)
PROC: 30233R1 Transfusion of Nonautologous Platelets into Peripheral Vein, Percutaneous Approach (ICD-10-PCS; 2023-03-31)
PROC: 02HV33Z Insertion of Infusion Device into Superior Vena Cava, Percutaneous Approach (ICD-10-PCS; 2023-03-31)
PROC: 02RF08Z Replacement of Aortic Valve with Zooplastic Tissue, Open Approach (ICD-10-PCS; principal; 2023-03-31 08:15)
PROC: 30233N1 Transfusion of Nonautologous Red Blood Cells into Peripheral Vein, Percutaneous Approach (ICD-10-PCS; 2023-04-02)
PROC: 30233M1 Transfusion of Nonautologous Plasma Cryoprecipitate into Peripheral Vein, Percutaneous Approach (ICD-10-PCS; 2023-04-02)
PROC: 0PQ00ZZ Repair Sternum, Open Approach (ICD-10-PCS; 2023-04-03)
PROC: 0W9C0ZZ Drainage of Mediastinum, Open Approach (ICD-10-PCS; 2023-04-03)
PROC: 0W9B30Z Drainage of Left Pleural Cavity with Drainage Device, Percutaneous Approach (ICD-10-PCS; 2023-04-03)
DX: I35.0 Nonrheumatic aortic (valve) stenosis (principal); I50.23 Acute on chronic systolic (congestive) heart failure; L03.311 Cellulitis of abdominal wall; Z68.41 Body mass index [BMI] 40.0-44.9, adult; I48.19 Other persistent atrial fibrillation; E87.1 Hypo-osmolality and hyponatremia; D62 Acute posthemorrhagic anemia; R04.89 Hemorrhage from other sites in respiratory passages; M54.9 Dorsalgia, unspecified; G89.29 Other chronic pain; E87.6 Hypokalemia; E66.01 Morbid (severe) obesity due to excess calories; F10.10 Alcohol abuse, uncomplicated; E83.51 Hypocalcemia; M76.62 Achilles tendinitis, left leg; I11.0 Hypertensive heart disease with heart failure; J44.9 Chronic obstructive pulmonary disease, unspecified; D69.6 Thrombocytopenia, unspecified; E88.09 Other disorders of plasma-protein metabolism, not elsewhere classified; T21.22XA Burn of second degree of abdominal wall, initial encounter; X08.8XXA Exposure to other specified smoke, fire and flames, initial encounter; I35.2 Nonrheumatic aortic (valve) stenosis with insufficiency; K70.30 Alcoholic cirrhosis of liver without ascites; M25.572 Pain in left ankle and joints of left foot; K70.40 Alcoholic hepatic failure without coma; Y93.89 Activity, other specified; Y99.8 Other external cause status; Y92.89 Other specified places as the place of occurrence of the external cause; Z79.01 Long term (current) use of anticoagulants; Z79.899 Other long term (current) drug therapy; Z87.891 Personal history of nicotine dependence; Z91.199 Patient's noncompliance with other medical treatment and regimen due to unspecified reason
CPT/HCPCS: 0232T; 93308; 93312; 93325; 99285; Z7506; Z7508; 36415; 36430; 36600; 71045; 71046; 76376; 80048; 80053; 80076; 80305; 80320; 82330; 82435; 82803; 82947; 82948; 83036; 83735; 83880; 84100; 84132; 84295; 84478; 84484; 85007; 85008; 85018; 85025; 85027; 85347; 85384; 85610; 85730; 86705; 86803; 86885; 86900; 86901; 86920; 87070; 87340; 87522; 93005; 94002; 94010; 94640; 94760; 97110; 97116; 97161; 97530; A4314; A4333; A4615; A4618; A4649; A5200; A6213; A6250; A6253; A6258; A6402; A6449; A7000; A7015; A7048; C1751; C9290; G0378; J0131; J0171; J0690; J1250; J1644; J1815; J1940; J2060; J2150; J2250; J2270; J2370; J2405; J2704; J2720; J2765; J2916; J2930; J3370; J3475; J3480; J3490; J7030; J7040; J7050; J7120; P9012; P9016; P9035; P9047; P9059

== ENCOUNTER 2024-07-28 09:21 | Outpatient (CLI) | payer OTHER ==
[2024-07-27 10:47] LABS: ALBUMIN 3.5 G/DL (3.4-5.0); ANION GAP 7 (8-16); BLOOD UREA NITROGEN 13 MG/DL (7-18); BUN/CREATININE RATIO 19.4 (10.0-20.0); CALCIUM 9.1 MG/DL (8.5-10.1); CHLORIDE 100 MMOL/L (99-107); CREATININE 0.67 MG/DL (0.60-1.10); GLUCOSE 89 MG/DL (70-104); POTASSIUM 3.6 MMOL/L (3.5-5.1); SODIUM 138 MMOL/L (135-145); TOTAL CARBON DIOXIDE 30.8 MMOL/L (24-32); eGFR > 90 ML/MIN
[~2024-07-28 09:21] MED LIST changes: -APIX5TAB3 PO; +ASPI-1071 PO; -CARV6.253 PO; +CELE-127 PO; -DIGO250T4 PO; -FOLI1TAB27 PO; +FURO40TA4 PO; -HYDR-3972 PO; -LIDOcaine 2% (20 mg/ml) 5ml cardiac syringe ONE; +LISI10TA27 PO; +LOP25T PO; -NORepinephrine bitart. inj. IV ONE; +OXYC-658 PO; +POTA-366 PO; -SPIR25TA PO; +SPIR25TA5 PO; -albumin (human) 25% 100 ML IV solution IV ONE; -aminocaproic acid 250 MG/1 ML inj. ONE; -calcium chloride 100 MG/1 ML inj IV ONE; -heparin 1,000 units/ml 10ml inj ONE; -heparin 10,000 units/1 ML INJ ONE; +iohexol 350MG/ML 100ml bottle IV ONE; -magnesium sulf 1 GM/2 ML ONE; -mannitol 12.5gm/50mL VIAL IV ONE; -methylPREDNISolone sod. succ. 500mg inj ONE; -potassium acetate 2 mEq/1ml inj. IV ONE; -sodium bicarbonate (8.4%) 1 mEq/ml syringe ONE
== END 2024-07-28 23:59 | disposition home or self-care (01) ==
LOC: RAD 09:21
PROVIDERS: ATTEND Internal Medicine Interventional Cardiology
DX: I50.22 Chronic systolic (congestive) heart failure (principal); I35.2 Nonrheumatic aortic (valve) stenosis with insufficiency; I71.20 Thoracic aortic aneurysm, without rupture, unspecified; Z95.2 Presence of prosthetic heart valve; Z95.9 Presence of cardiac and vascular implant and graft, unspecified; I35.0 Nonrheumatic aortic (valve) stenosis
CPT/HCPCS: 36415; 75574; 80048; Q9967

== ENCOUNTER 2024-11-21 10:19 | Day surgery (SDC) | payer OTHER ==
[2024-11-17 09:50] LABS: MEAN PLATELET VOLUME 8.5 FL (7.4-10.4); RED CELL DISTRIBUTION WIDTH 16.8 % (11.5-14.5)
[2024-11-17 09:56] LABS: APTT 29 SECONDS (22-32); INR 1.2 INR
[2024-11-17 09:58] LABS: CHOL/HDL RATIO 3.1 (0.00-4.99); CREATININE 0.62 MG/DL (0.60-1.10); LDL CHOLESTEROL 131 MG/DL (50-100); TOTAL CARBON DIOXIDE 27.2 MMOL/L (24-32); eGFR > 90 ML/MIN
[~2024-11-21 10:19] MED LIST changes: -ALBU8HFA INH; +AMI200T PO; +APIX5TAB3 PO; -ASPI-1071 PO; -BUDE10.22 INH; -CELE-127 PO; -FURO20TA4 PO; -LISI10TA27 PO; +LISI5TAB22 PO; -LOP25T PO; +METO200T37 PO; -OXYC-658 PO; -POTA-366 PO; -SPIR25TA5 PO; -iohexol 350MG/ML 100ml bottle IV ONE
[2024-11-21] MEDS ORDERED: normal saline 1000ml 1,000 ML IV SCH (10:40)
[2024-11-21] MEDS ORDERED: fentaNYL/PF 50MCG/1 ML 2ML syringe IV ONE (10:40)
[2024-11-21] MEDS ORDERED: MIDAZolam 1mg/ml 10ml vial IV ONE (10:40)
[2024-11-21 11:00] VITALS: BP 108/66; PULSE 78; RESP 15; TEMP 97.9; O2SAT 96
[2024-11-21] MEDS ORDERED: midazolam 1 mg/ML 2ml injection ONE ×3 (11:59→12:19)
[2024-11-21] MEDS ORDERED: amiodarone 50MG/ML inj IV ONE (11:59)
[2024-11-21] MEDS ORDERED: atropine 0.1mg/ml 10ml syringe ONE (11:59)
[2024-11-21] MEDS ORDERED: fentaNYL/PF 50MCG/1 ML 2ML syringe ONE (11:59)
[2024-11-21 12:35] VITALS: BP 100/61; PULSE 79; RESP 16; O2SAT 92
[2024-11-21 12:50] VITALS: BP 102/51; PULSE 80; RESP 16; O2SAT 94
[2024-11-21 13:05] VITALS: BP 108/54; PULSE 81; RESP 16; O2SAT 97
--- NOTE | 2024-11-21 15:12 | ELECTROCARDIOGRAPH REPORT ---
[facility] Test Date: 2024-11-21 Test Time: 12:37:59 Pat Name: JONNA LOAIZA Department: PRE/OP CARDIOLOGY Patient ID: [id number] Room: Gender: M Rails Developer: : 1970 Requested By: STEFFI ALMANZA Order Number: [id number] Reading MD: Dr. Jon Fox Measurements Intervals Melissa Rate: 78 P: 69 IN: 218 QRS: -78 QRSD: 103 T: 44 QT: 440 QTc: 502 Interpretive Statements Sinus rhythm Paired ventricular premature complexes or artifact Prolonged IN interval Inferior infarct, old Prolonged QT interval Electronically Signed On 11-22-2024 8:35:[address] Jon Fox Please click the below link to view image of tracing.
--- NOTE | 2024-11-21 16:04 | PROCEDURE NOTE CC ---
Procedure Note Providers to CC CC: RENARD ALMANZA MD ~ Description Cardioversion Indications Symptomatic Atrial Fibrillation Post Operative Dx: Same Type of Anesthesia Moderate Sedation. Description It was confirmed that patient has been taking oral anticoagulation without interruption for at least 4 weeks. The appropriate time-out procedure was performed including proper identification of the patient, physician, procedure, documentation, and there were no safety issues identified. The patient participated actively in this. After sedation was achieved, the patient was placed in the supine position and hands free patches were placed on their chest in the AP-lateral position. 1 synchronized cardioversion was provided at 200 Joules without conversion to normal sinus rhythm. Repeat Cardioversion was again delivered at 200J after which he converted to normal sinus rhythm. This was confirmed on EKG. Complication: None The patient tolerated the procedure well without complications. STEFFI ALMANZA MD Nov 21, 2024 16:04
== END 2024-11-21 13:15 | disposition home or self-care (01) ==
LOC: SSTAY O 10:19
PROVIDERS: ATTEND Student in an Organized Health Care Education/Training Program
DX: I48.91 Unspecified atrial fibrillation (principal); I35.0 Nonrheumatic aortic (valve) stenosis; I25.2 Old myocardial infarction; I50.9 Heart failure, unspecified; I11.0 Hypertensive heart disease with heart failure; Z79.01 Long term (current) use of anticoagulants; Z79.899 Other long term (current) drug therapy; Z88.8 Allergy status to other drugs, medicaments and biological substances
CPT/HCPCS: 36415; 80048; 80061; 83695; 84132; 85025; 85610; 85730; 92960; 93005; 99152; J2250; J3010; J7030; A4615; J0282; J0461

== ENCOUNTER 2025-01-14 16:01 | Emergency (ER) | payer MEDICAID ==
[~2025-01-14] VITALS: Ht 177.8 cm; Wt 136.7 kg
[~2025-01-14 16:01] MED LIST changes: -AMI200T PO; +AMIO200T76 PO; +ASPI81TA52 PO; +FOLI1TAB27 PO; +FURO20TA4 PO; -FURO40TA4 PO; +HYDR-3972 PO; +LACT1CAP26 PO; +METO-395 PO; -METO200T37 PO; +POTA-188 PO; +PRED10TA23 PO; +TEST200V33 IM; +TIRZ10PE SQ; +URSO300C2 PO
--- NOTE | 2025-01-14 19:06 | Physician Documentation ---
History of Present Illness ~ Chief Complaint: Laceration Stated Complaint: WOUND L LEG Time Seen by MD: 17:28 Primary Medical Doctor: unknown. requested by Dr.Pena MAY Hesitate your year old male who presents emergency department for evaluation of uncontrolled bleeding to the left posterior thigh. Patient reports that he is on blood thinners he was sitting on the toilet today when he noticed an area on the back portion of his left thigh bleeding in spurting somewhat uncontrollably. Does report a history significant for varicose veins. Patient currently has the area wrapped and bleeding controlled. No other concerns at this time. Tetanus Within 5 Years: No Medication Reconciliation Allergies: Coded Allergies: No Known Allergies (Unverified , 12/18/24) Scheduled Amiodarone Hcl (Cordarone), 1 TAB PO DAILY, (Reported) Apixaban (Eliquis), 1 TAB PO BID, (Reported) Aspirin (Aspirin EC), 1 TAB PO DAILY, (Reported) Folic Acid* (Folic Acid*), 1 MG PO DAILY Furosemide (Furosemide), 1 TAB PO DAILY, (Reported) Lactobacillus Rhamnosus (Culturelle), 10,000 MMU PO BID Lisinopril (Lisinopril), 1 TAB PO DAILY, (Reported) Metoprolol Succinate (Metoprolol Succinate), 50 MG PO DAILY Multivitamin (Multi-Vitamin Daily), 1 TAB PO DAILY, (Reported) Potassium Chloride* (Klor-Con*), 1 TAB PO BID, (Reported) Prednisone (Prednisone), 0 PO DAILY Testosterone Cypionate (TESTOSTERONE CYPIONATE 200mg/ml 10ml vial), 1 ML IM Q2W, (Reported) Thiamine HCl (Vitamin B-1), 2 TAB PO DAILY Tirzepatide (Mounjaro), 0.5 ML SQ Q7D, (Reported) Ursodiol (Ursodiol), 300 MG PO Q12H Scheduled PRN Hydrocodone Bit/Acetaminophen (Hydrocodon-Acetaminophn 10-325 tablet), 1 TABLET PO Q6H PRN for pain, (Reported) Past Medical History Past Medical History: Atrial Fibrillation, Congestive Heart Failure, Chronic Pain, Chronic Back Pain Past Surgical History: noncontributory Patient History: Patient reports no known family medical history. Alcohol Use: Sober Drug Use: marijuana Lives with: Family Lives In: Home Occupation: employed Review of Systems ROS As stated above in the HPI, otherwise all systems are reviewed and negative. Physical Exam Vital Signs: Temperature: 97.2, Source: Temporal, Heart Rate: 67, Respiratory Rate: 18, BP: 110/71, Pulse Oximetry: 97, Weight: 136.700 Oxygen Flow Rate: 0 Physical Exam VITALS: Reviewed and as above. GENERAL: Alert, no apparent distress. HEENT: Normocephalic, atraumatic, PERRL, EOMI, dry mucosa, no erythema RESPIRATORY: Lungs clear, normal breath sounds, no respiratory distress. CHEST: No accessory muscle use, no retractions CV: Regular rate, rhythm, no edema, no murmur, No: JVD GI: Soft, non-tender, bowels sounds present, no rebound, guarding, or rigidity BACK: No CVA tenderness, or swelling MUSCULOSKELETAL No deformities, no edema SKIN: Warm and dry, no rash, varicose veins present on bilateral lower extremities, area of controlled bleeding to the posterior left thigh probably secondary to a very superficial varicose vein. NEURO: Oriented x4, No motor or sensory deficit PSYCH: Normal mood and affect, no agitation Procedures Laceration/Wound Repair Laceration : Location: Of the posterior thigh Length (cm): .25 Anesthesia: none Prep: other Debrided: minimal Undermining: none Foreign Body: not identified Repaired: skin Procedure Note Small area of very superficial varicose vein noted. Bleeding controlled with silver nitrate stick. Everything course with gauze wrapped with Coban. Supplies sent with patient. Tolerated procedure well no complications. Progress Results/Orders Results/Orders Completed Orders - LENI SALAZAR Silver Nitrate Applicator (Silver Nitrat (01/14/25 18:40) Medications Received in ER Medications (Trade) Dose Ordered Sig/Sherrell Route PRN Reason Start Time Stop Time Status Last Admin Dose Admin (silver nitrate applicator stick) 1 each ONCE ONCE TP 01/14/25 18:40 01/14/25 18:41 DC 01/14/25 18:47 1 EACH Vital Signs 01/14/25 16:04 Temp 97.2 Pulse 67 Resp 18 B/P (MAP) 110/71 Pulse Ox 97 O2 Flow Rate 0 Medical Decision Making Findings Wound inspected under direct bright light with good visualization. Area with linear laceration across soft tissue through adipose without exposure of muscle belly or tendon. No overt foreign body. Area hemostatic. Neurovascular exam congruent with above. We have bleeding areas with silver nitrate stick. Patient tolerated procedure well and neurovascular exam intact and unchanged post repair with intact distal pulses and cap refill. Cautious return precautions discussed w/ full understanding. Wound care discussed. Pelvis your primary care provider. Patient will return to the emergency department with any worsening of his current symptoms or any additional concerning symptoms we discussed here today i.e. additional bleeding uncontrolled bleeding lightheadedness shortness for breath any other concerning symptoms. Differential Dx:Considerations: Include: Abrasion, Avulsion, Contusion, Laceration, Fracture, Hematoma, Neurovascular injury, Retained foreign body, Other Departure Disposition: HOME / SELF CARE / HOMELESS Impression: Primary Impression: Laceration Additional Impression: Bleeding from varicose vein Condition: Stable Discharge Instructions: Bleeding Varicose Veins, Laceration Care, Adult, [id number], Varicose Veins Additional Instructions: Wound inspected under direct bright light with good visualization. Area with linear laceration across soft tissue through adipose without exposure of muscle belly or tendon. No overt foreign body. Area hemostatic. Neurovascular exam con gruent with above. We have bleeding areas with silver nitrate stick. Patient tolerated procedure well and neurovascular exam intact and unchanged post repair with intact distal pulses and cap refill. Cautious return precautions discussed w/ full understanding. Wound care discussed. Pelvis your primary care provider. Patient will return to the emergency department with any worsening of his current symptoms or any additional concerning symptoms we discussed here today i.e. additional bleeding uncontrolled bleeding lightheadedness shortness for breath any other concerning symptoms. Referrals: NO PRIMARY CARE PROVIDER (PCP) Education Educated: Patient Educated regarding: diagnosis, treatment, need for follow up Signature Scribe Signature: A Attestation: Scribed for Leni Salazar by ALAN Herrera . 01/14/25 19:09 LENI SALAZAR Jan 14, 2025 19:06
[2025-01-14 19:35] VITALS: BP 138/82; PULSE 82; RESP 18; TEMP 98.6; O2SAT 99
== END 2025-01-14 19:36 | disposition home or self-care (01) ==
LOC: ER 16:01
DX: S71.112A Laceration without foreign body, left thigh, initial encounter (principal); I83.899 Varicose veins of unspecified lower extremity with other complications; I50.9 Heart failure, unspecified; I48.91 Unspecified atrial fibrillation; F12.90 Cannabis use, unspecified, uncomplicated; F10.90 Alcohol use, unspecified, uncomplicated; Z79.82 Long term (current) use of aspirin; X58.XXXA Exposure to other specified factors, initial encounter; Y93.89 Activity, other specified; Y92.89 Other specified places as the place of occurrence of the external cause; Y99.8 Other external cause status; Y90.9 Presence of alcohol in blood, level not specified
CPT/HCPCS: 99283; A6449

== ENCOUNTER 2025-01-21 18:16 | Emergency (ER) | payer MEDICAID ==
[~2025-01-21] VITALS: Ht 177.8 cm; Wt 137.2 kg
--- NOTE | 2025-01-21 20:28 | Physician Documentation ---
History of Present Illness ~ Chief Complaint: Leg Laceration Stated Complaint: RUPTURED VEIN Time Seen by MD: 18:41 Primary Medical Doctor: unknown. requested by Dr.Pena MAY 54-year-old male brought to the emergency department by EMS for evaluation of a ruptured varicose vein to the posterior aspect of his left thigh. Similar episode distal to the ruptured site today on the Jan. Please controlled with direct pressure. Patient has a strong distal pulses and excellent cap refill. The patient is on Xarelto. Tetanus Within 5 Years: No Medication Reconciliation Allergies: Coded Allergies: No Known Allergies (Unverified , 12/18/24) Scheduled Amiodarone Hcl (Cordarone), 1 TAB PO DAILY, (Reported) Apixaban (Eliquis), 1 TAB PO BID, (Reported) Aspirin (Aspirin EC), 1 TAB PO DAILY, (Reported) Folic Acid* (Folic Acid*), 1 MG PO DAILY Furosemide (Furosemide), 1 TAB PO DAILY, (Reported) Lactobacillus Rhamnosus (Culturelle), 10,000 MMU PO BID Lisinopril (Lisinopril), 1 TAB PO DAILY, (Reported) Metoprolol Succinate (Metoprolol Succinate), 50 MG PO DAILY Multivitamin (Multi-Vitamin Daily), 1 TAB PO DAILY, (Reported) Potassium Chloride* (Klor-Con*), 1 TAB PO BID, (Reported) Prednisone (Prednisone), 0 PO DAILY Testosterone Cypionate (TESTOSTERONE CYPIONATE 200mg/ml 10ml vial), 1 ML IM Q2W, (Reported) Thiamine HCl (Vitamin B-1), 2 TAB PO DAILY Tirzepatide (Mounjaro), 0.5 ML SQ Q7D, (Reported) Ursodiol (Ursodiol), 300 MG PO Q12H Scheduled PRN Hydrocodone Bit/Acetaminophen (Hydrocodon-Acetaminophn 10-325 tablet), 1 TABLET PO Q6H PRN for pain, (Reported) Past Medical History Past Medical History: Atrial Fibrillation, Congestive Heart Failure, Chronic Pain, Chronic Back Pain Past Surgical History: noncontributory Patient History: Patient reports no known family medical history. Alcohol Use: Sober Drug Use: marijuana Lives with: Family Lives In: Home Occupation: employed Review of Systems All Other Systems at this time: Reviewed and Negative Integumentary: Reports: laceration(s) Physical Exam Vital Signs: Temperature: 98.5, Source: Oral, Heart Rate: 84, Respiratory Rate: 16, BP: 122/74, Pulse Oximetry: 97, Weight: 137.200 Oxygen Flow Rate: 0 General Appearance: alert, WD/WN, mild distress EENT: PERRL/EOMI Neck: non-tender Cardiovascular: regular rate, rhythm Respiratory: normal breath sounds Chest: no accessory muscle use Extremities: normal range of motion, no calf tenderness, normal capillary refill; No: swelling Extremities Proximally 0.25 cm ruptured venule to the posterior mid left thigh with continued bleeding. Skin: normal color Neurologic: oriented x4 Psychiatric: normal mood/affect Procedures Laceration/Wound Repair Laceration : Location: Posterior thigh Length (cm): 25 Anesthesia: Lidocaine Volume Anesthetic (mls): 1 Prep: irrigated by physician, scrubbed Debrided: extensive Undermining: none Repaired: skin Wound Repaired With: sutures Suture Size/Type: 3-0 Number of Superficial Sutures: 2 Layer Closure?: No Dressing Applied: simple, other (Pressure dressing) Tolerated Procedure Well?: yes, no complications Progress Results/Orders Results/Orders Vital Signs 01/21/25 01/21/25 18:32 20:33 Temp 98.5 98.6 Pulse 84 82 Resp 16 18 B/P (MAP) 122/74 124/72 Pulse Ox 97 99 O2 Flow Rate 0 Medical Decision Making Additional Comments 54-year-old male on Xarelto needing wound management to the left posterior thigh due to the ruptured varicose vein. See procedure note regarding achieving hemostasis.. Wound was prepped and draped in sterile fashion. Anesthetized. After receiving adequate anesthesia the wound was closed with 2 times 3-0 simple interrupted nylon sutures. Additionally had Surgicel applied topically with sterile 4 x 4 gauze dressing and Carlos Manuel wrap. Aftercare instructions for patient to leave the wound covered for 2-3 days presents for wound check. Sutures to be removed in 7-10 days. No clinical suspicion for seroma or hematoma. Remains neurovascularly intact with excellent cap refill. Departure Disposition: HOME / SELF CARE / HOMELESS Impression: Primary Impression: Laceration Discharge Instructions: Laceration Care, Adult Additional Instructions: Tonight in the emergency department you had two sutures placed along with a hemostatic gauze applied to control bleeding. Continue with your medications as directed. Please have wound checked in 2-3 days for signs of infection and have both sutures removed in 7-10 days. Referrals: NO PRIMARY CARE PROVIDER (PCP) Education Educated: Patient Educated regarding: diagnosis, treatment Signature Scribe Signature: . Attestation: . [facility] Jan 21, 2025 20:28
[2025-01-21 20:33] VITALS: BP 124/72; PULSE 82; RESP 18; TEMP 98.6; O2SAT 99
== END 2025-01-21 20:33 | disposition home or self-care (01) ==
LOC: ER 18:17
DX: S71.112A Laceration without foreign body, left thigh, initial encounter (principal); I48.91 Unspecified atrial fibrillation; I50.9 Heart failure, unspecified; F12.90 Cannabis use, unspecified, uncomplicated; Z79.82 Long term (current) use of aspirin; X58.XXXA Exposure to other specified factors, initial encounter; Y93.89 Activity, other specified; Y92.89 Other specified places as the place of occurrence of the external cause; Y99.8 Other external cause status
CPT/HCPCS: 12006; 99283; A6449

== ENCOUNTER 2025-01-31 12:07 | Emergency (ER) | payer MEDICAID ==
[~2025-01-31] VITALS: Ht 177.8 cm; Wt 136.5 kg
[~2025-01-31 12:07] MED LIST changes: -PRED10TA23 PO
[2025-01-31 12:28] VITALS: BP 121/68; PULSE 91; RESP 18; O2SAT 95
[2025-01-31 12:49] VITALS: TEMP 97.9
--- NOTE | 2025-01-31 12:51 | Physician Documentation ---
History of Present Illness ~ Chief Complaint: Suture Removal Stated Complaint: STITCH REMOVAL Time Seen by MD: 12:33 OK to notify your PCP?: Yes Primary Medical Doctor: unknown. requested by Source: patient Mode of Arrival: POV Exam Limitations: no limitations HPI This is a 54-year-old male who comes in requesting to have two sutures were moved from his left inner thigh. The patient states this is from a ruptured varicose vein there was sutured closed 10 days ago. He is not complaining of any issues with the area. Tetanus Within 5 Years: No Medication Reconciliation Allergies: Coded Allergies: No Known Allergies (Unverified , 12/18/24) Scheduled Amiodarone Hcl (Cordarone), 1 TAB PO DAILY, (Reported) Apixaban (Eliquis), 1 TAB PO BID, (Reported) Aspirin (Aspirin EC), 1 TAB PO DAILY, (Reported) Folic Acid* (Folic Acid*), 1 MG PO DAILY Furosemide (Furosemide), 1 TAB PO DAILY, (Reported) Lactobacillus Rhamnosus (Culturelle), 10,000 MMU PO BID Lisinopril (Lisinopril), 1 TAB PO DAILY, (Reported) Metoprolol Succinate (Metoprolol Succinate), 50 MG PO DAILY Multivitamin (Multi-Vitamin Daily), 1 TAB PO DAILY, (Reported) Potassium Chloride* (Klor-Con*), 1 TAB PO BID, (Reported) Testosterone Cypionate (TESTOSTERONE CYPIONATE 200mg/ml 10ml vial), 1 ML IM Q2W, (Reported) Thiamine HCl (Vitamin B-1), 2 TAB PO DAILY Tirzepatide (Mounjaro), 0.5 ML SQ Q7D, (Reported) Ursodiol (Ursodiol), 300 MG PO Q12H Scheduled PRN Hydrocodone Bit/Acetaminophen (Hydrocodon-Acetaminophn 10-325 tablet), 1 TABLET PO Q6H PRN for pain, (Reported) Discontinued Medications Prednisone (Prednisone), 0 PO DAILY Discontinued Reason: Auto Discontinued Past Medical History Past Medical History: Atrial Fibrillation, Congestive Heart Failure, Chronic Pain, Chronic Back Pain Past Surgical History: noncontributory Patient History: Patient reports no known family medical history. Alcohol Use: Sober Drug Use: marijuana Lives with: Family Lives In: Home Occupation: employed Physical Exam Vital Signs: Temperature: 97.9, Source: Temporal, Heart Rate: 91, Respiratory Rate: 18, BP: 121/68, Pulse Oximetry: 95, Weight: 136.500 Oxygen Flow Rate: 0 Skin To inspection of the left inner thigh the patient has a sutured wound with two sutures in place. No wound dehiscence. No signs of infection. No issues with the area. Procedure Procedures Two sutures were removed atraumatically and uneventfully from the left inner thigh. The patient tolerated the procedure well. No signs of bacterial infection. No wound dehiscence. Progress Results/Orders Results/Orders Vital Signs 01/31/25 01/31/25 12:28 12:49 Temp 97.9 97.9 Pulse 91 Resp 18 B/P (MAP) 121/68 Pulse Ox 95 O2 Flow Rate 0 Medical Decision Making Findings The sutures were removed atraumatically and uneventfully. The patient tolerated the procedure well. The patient's left after the sutures were removed Additional Comment Suture removal. Ruptured varicose vein. Wound check. Departure Disposition: 01 HOME / SELF CARE / HOMELESS Impression: Primary Impression: Visit for suture removal Additional Instructions: Follow up with the primary care physician as needed. Return as needed. Referrals: NO PRIMARY CARE PROVIDER (PCP) Signature Scribe Signature: No scribe Attestation: The note accurately reflects work and decisions made by me.Maximo RIGGS 01/31/25 12:50 MAXIMO RUFFIN Jan 31, 2025 12:51 GINO VILLARREAL MD Feb 01, 2025 07:45
== END 2025-01-31 12:51 | disposition home or self-care (01) ==
LOC: ER 12:07
DX: S71.112D Laceration without foreign body, left thigh, subsequent encounter (principal); F12.90 Cannabis use, unspecified, uncomplicated; G89.29 Other chronic pain; I48.91 Unspecified atrial fibrillation; I50.9 Heart failure, unspecified; Z79.899 Other long term (current) drug therapy; Z79.82 Long term (current) use of aspirin; X58.XXXD Exposure to other specified factors, subsequent encounter
CPT/HCPCS: 99281; 99282

== ENCOUNTER 2025-02-22 10:41 | Emergency (ER) | payer MEDICAID ==
[~2025-02-22] VITALS: Ht 177.8 cm; Wt 139.2 kg
[2025-02-22 10:49] VITALS: BP 124/77; PULSE 82; TEMP 97.8; O2SAT 98
--- NOTE | 2025-02-22 11:05 | Physician Documentation ---
History of Present Illness ~ Chief Complaint: Ankle pain Stated Complaint: R FOOT PAIN Time Seen by MD: 10:51 Primary Medical Doctor: unknown. requested by Dr.Pena MAY This is a 54-year-old male who presents with progressively worsening right ankle and foot pain onset Wednesday morning as he stepped out of bed. Patient reports no acute injuries to the foot. Patient reports that he stretches his ankle and foot every night to chronic discomfort in the foot related to his Achilles tendon injury. Patient reports the pain is quite high and he is unable to walk or bear weight on the affected foot. Tetanus witin 5 years: No Medication Reconciliation Allergies: Coded Allergies: No Known Allergies (Unverified , 02/22/25) Scheduled Amiodarone Hcl (Cordarone), 1 TAB PO DAILY, (Reported) Apixaban (Eliquis), 1 TAB PO BID, (Reported) Aspirin (Aspirin EC), 1 TAB PO DAILY, (Reported) Folic Acid* (Folic Acid*), 1 MG PO DAILY Furosemide (Furosemide), 1 TAB PO DAILY, (Reported) Lactobacillus Rhamnosus (Culturelle), 10,000 MMU PO BID Lisinopril (Lisinopril), 1 TAB PO DAILY, (Reported) Metoprolol Succinate (Metoprolol Succinate), 50 MG PO DAILY Multivitamin (Multi-Vitamin Daily), 1 TAB PO DAILY, (Reported) Potassium Chloride* (Klor-Con*), 1 TAB PO BID, (Reported) Testosterone Cypionate (TESTOSTERONE CYPIONATE 200mg/ml 10ml vial), 1 ML IM Q2W, (Reported) Thiamine HCl (Vitamin B-1), 2 TAB PO DAILY Tirzepatide (Mounjaro), 0.5 ML SQ Q7D, (Reported) Ursodiol (Ursodiol), 300 MG PO Q12H Scheduled PRN Hydrocodone Bit/Acetaminophen (Hydrocodon-Acetaminophn 10-325 tablet), 1 TABLET PO Q6H PRN for pain, (Reported) Past Medical History Past Medical History: Atrial Fibrillation, Congestive Heart Failure, Chronic Pain, Chronic Back Pain Past Surgical History: noncontributory, orthopedic surgeries Patient History: Patient reports no known family medical history. Alcohol Use: Sober Drug Use: marijuana Lives with: Family Lives In: Home Occupation: employed Review of Systems ROS As stated above in the HPI, otherwise all systems are reviewed and negative. Physical Exam Vital Signs: Temperature: 97.8, Source: Temporal, Heart Rate: 82, Respiratory Rate: 16, BP: 124/77, Pulse Oximetry: 98, Weight: 139.200 Oxygen Flow Rate: 0 Physical Exam VITALS: Reviewed and as above. GENERAL: Alert, nontoxic appearing, no apparent distress. RESPIRATORY: No increased work of breathing, no respiratory distress, speaking in full clear sentences CV: Pedal pulse intact to right foot MUSCULOSKELETAL: Right ankle swollen compared to left, behind loom winder tender to palpation on dorsal hand plantar aspects, posterior, old, in the medial aspects of ankle nontender. SKIN: Bilateral feet mildly erythematous and equal, no significant difference in skin temperature of feet NEURO: Sensation intact to right foot Progress Results/Orders Results/Orders Orders - LIZZIE ROYAL Ankle, Complete(3vw Min) (02/22/25 10:59) Foot, Complete (3vw Min) (02/22/25 10:59) Ortho Orders (02/22/25 12:34) Completed Orders - LIZZIE ROYAL Ankle, Complete(3vw Min) (02/22/25 10:59) Foot, Complete (3vw Min) (02/22/25 10:59) Hydrocodone/Apap 10/325 ([place] 10/325mg (02/22/25 11:00) Vital Signs 02/22/25 02/22/25 10:49 11:09 Temp 97.8 Pulse 82 Resp 16 18 B/P (MAP) 124/77 Pulse Ox 98 O2 Flow Rate 0 EKG/XRAY/CT/US/VASC/MRI Bone/Soft Tissue X-Ray (Ext.) #1: Additional Comment Exam: ANKLE, COMPLETE(3VW MIN) EXAM: DI ANKLE, COMPLETE(3VW MIN) CLINICAL INDICATION: ANKLE PAIN TECHNIQUE: DI ANKLE, COMPLETE(3VW MIN) Comparison: DI FOOT, COMPLETE (3VW MIN) on DOS: 02/22/25, ANKLE, COMPLETE(3VW MIN) on DOS: 08/17/22, FOOT, COMPLETE (3VW MIN) on DOS: 08/17/22 FINDINGS/IMPRESSION: There is no evidence of acute fracture or dislocation. Diffuse soft tissue swelling. The alignment is anatomical. There is no radiopaque foreign body. Electronically Signed by:RAHUL CORNELL MD Date & Time: 02/22/25 1203 Dictated by: RAHUL CORNELL MD Dictation date and time: 02/22/25 1203 I have reviewed and agree with the radiology report. I have reviewed and interpreted the imaging as: No fracture or dislocation Bone/Soft Tissue X-Ray (Ext.) #2: Additional Comment Exam: FOOT, COMPLETE (3VW MIN) EXAM: DI FOOT, COMPLETE (3VW MIN), CATH CARDIOVERSION CLINICAL INDICATION: FOOT PAIN TECHNIQUE: DI FOOT, COMPLETE (3VW MIN), CATH CARDIOVERSION Comparison: DI ANKLE, COMPLETE(3VW MIN) on DOS: 02/22/25, FOOT, COMPLETE (3VW MIN) on DOS: 08/17/22 FINDINGS/IMPRESSION: There is no evidence of acute fracture or dislocation. Diffuse soft tissue swelling. Chronic deformities involving the proximal phalanges of digits 2 through 5 with respect to the metatarsals. Please correlate with physical exam The alignment is anatomical. There is no radiopaque foreign body. Electronically Signed by:RAHUL CORNELL MD Date & Time: 02/22/25 1200 Dictated by: RAHUL CORNELL MD Dictation date and time: 02/22/25 1200 I have reviewed and agree with the radiology report. I have reviewed and interpreted the imaging as: No fracture or dislocation Medical Decision Making Additional information obtaine: N/A Findings This 54-year-old male presented with three days of progressive weight worsening right foot and ankle pain onset after stepping out of bed in the morning, it is reassuring the limb is neurovascularly intact, imaging demonstrated no fracture or dislocation. On exam right foot and ankle were swollen as compared to left foot and ankle, forefoot and midfoot tender to palpation. Reassuring that the foot is not significantly erythematous as compared to left foot and is not hot to the touch additionally reassuring patient does not report fevers. Suspect a soft tissue injury and patient will be placed on crutches treated with rest, ice, compression, and elevation and discharged to follow up with an orthope dist/dye box operator. This is otherwise well-appearing and appropriate for outpatient follow up, patient provided home care instructions, return to care precautions, and follow up instructions which he verbalized understanding of. General Diff Dx:Considerations: Include: Abrasion, Contusion, Sprain Knee Diff Dx:Considerations: Unlikely: Abrasion, Arthritis, Contusion, DJD, Fracture-femur, Fracture-fibula, Fracture-patella, Fracture-tibia, Gout, Hematoma, Laceration, Meniscus injury, Neurovascular injury, Open fracture, Rheumatoid arthritis, Septic, Sprain, Sprain-MCL, Sprain-LCL, Sprain-ACL, S prain-PCL, Other Ankle Diff Dx:Considerations: Include: Abrasion, Arthritis, Contusion, Fracture-metatarsal, Fracture-fibula, Fracture-tarsal, Fracture-tibia, Sprain, Septic Foot Diff Dx:Considerations: Include: Abrasion, Arthritis, Cellulitis, Fracture-metatarsal, Fracture-phalynx, Fracture-tarsal, Gout, Laceration Toe Diff Dx:Considerations: Include: Abrasion, Cellulitis, Contusion, Fracture, Hematoma, Laceration Departure Time of Disposition: 12:28 Disposition: 01 HOME / SELF CARE / HOMELESS Impression: Primary Impression: Acute pain of right foot Condition: Improved Discharge Instructions: Foot Pain, RICE Therapy for Routine Care of Injuries, [id number] Additional Instructions: There was no fracture or dislocation on your x-rays. I suspect this is a soft tissue injury, please use the provided crutches to keep weight off the foot, please see the attached home care instructions for rest, ice, compression, and elevation. Please follow up with your primary care provider and or orthopedist/dye box operator for further evaluation and possible additional imaging. May use ibuprofen and or Tylenol as needed for pain as directed by [id number] packaging. Please follow up with your primary care provider in the next few days. Please return to the emergency department for any new or worsening concerning symptoms. You may use [id number] ibuprofen and or Tylenol as needed for pain as directed by the [id number] packaging. For breakthrough pain you may use your previously prescribed [place], be aware that the [place] also contains the same active ingredient as Tylenol, so do not take more than the recommended amount of Tylenol as directed on the [id number] packaging. Referrals: NO PRIMARY CARE PROVIDER (PCP) NORMA BRIZUELA Jr., MD Education Educated: Patient Educated regarding: diagnosis, treatment, prognosis, need for follow up Signature Scribe Signature: Exam: FOOT, COMPLETE (3VW MIN) EXAM: DI FOOT, COMPLETE (3VW MIN), CATH CARDIOVERSION CLINICAL INDICATION: FOOT PAIN No Scribe Attestation: The note accurately reflects work and decisions made by me.ALAN Aguilar 02/22/25 20:21 Parts of this note were created using [employer] voice recognition software program. While efforts were made to correct any mistakes made by this voice recognition software program, nonsensical phrases may remain in this note. In addition, there may be errors and syntax, grammar, content and spelling. LIZZIE ROYAL Feb 22, 2025 11:05
[2025-02-22 11:09] VITALS: RESP 18
[2025-02-22] MEDS: HYDROcodone/acetaminophen 10/325mg tab PO ONE (11:09)
--- NOTE | 2025-02-22 12:02 | RADIOLOGY REPORT ---
EXAM: DI FOOT, COMPLETE (3VW MIN), CATH CARDIOVERSION CLINICAL INDICATION: FOOT PAIN TECHNIQUE: DI FOOT, COMPLETE (3VW MIN), CATH CARDIOVERSION Comparison: DI ANKLE, COMPLETE(3VW MIN) on DOS: 02/22/25, FOOT, COMPLETE (3VW MIN) on DOS: 08/17/22 FINDINGS/IMPRESSION: There is no evidence of acute fracture or dislocation. Diffuse soft tissue swelling. Chronic deformities involving the proximal phalanges of digits 2 through 5 with respect to the metatarsals. Please correlate with physical exam The alignment is anatomical. There is no radiopaque foreign body.
--- NOTE | 2025-02-22 12:05 | RADIOLOGY REPORT ---
EXAM: DI ANKLE, COMPLETE(3VW MIN) CLINICAL INDICATION: ANKLE PAIN TECHNIQUE: DI ANKLE, COMPLETE(3VW MIN) Comparison: DI FOOT, COMPLETE (3VW MIN) on DOS: 02/22/25, ANKLE, COMPLETE(3VW MIN) on DOS: 08/17/22, FOOT, COMPLETE (3VW MIN) on DOS: 08/17/22 FINDINGS/IMPRESSION: There is no evidence of acute fracture or dislocation. Diffuse soft tissue swelling. The alignment is anatomical. There is no radiopaque foreign body.
== END 2025-02-22 13:00 | disposition home or self-care (01) ==
LOC: ER 10:42
DX: M25.571 Pain in right ankle and joints of right foot (principal); I48.91 Unspecified atrial fibrillation; F12.90 Cannabis use, unspecified, uncomplicated; G89.29 Other chronic pain; I50.9 Heart failure, unspecified; Z79.899 Other long term (current) drug therapy; Z79.82 Long term (current) use of aspirin; Z98.890 Other specified postprocedural states
CPT/HCPCS: 73610; 73630; 99284